=== PATIENT | male | born 1955 | race Caucasian/White ===

== ENCOUNTER 2019-02-25 | Day surgery (SDC) | payer MEDICARE, MEDICAID, SELFPAY | END 2019-02-25 23:00 | disposition home or self-care (01) | LOC: GILAB 10-04 13:38 | PROVIDERS: PCP Family Medicine; Visit Provider Surgery | PROC: 0DJ08ZZ Inspection of Upper Intestinal Tract, Via Natural or Artificial Opening Endoscopic (ICD-10-PCS; CPT 43235; principal; 2019-02-25 10:15) | DX: Z53.9 Procedure and treatment not carried out, unspecified reason (principal) | CPT/HCPCS: J7030 ==

== ENCOUNTER → 2019-03-17 10:11 | Outpatient (BNVA) | payer MEDICARE, SELFPAY | PROVIDERS: Family Provider Family Medicine; PCP Family Medicine; Visit Provider Nurse Practitioner | DX: M54.16 Radiculopathy, lumbar region (principal); M47.812 Spondylosis without myelopathy or radiculopathy, cervical region; M25.532 Pain in left wrist; M19.90 Unspecified osteoarthritis, unspecified site; Z79.891 Long term (current) use of opiate analgesic | CPT/HCPCS: 99214 ==

== ENCOUNTER → 2019-04-14 09:16 | Outpatient (BNVA) | payer MEDICARE, MEDICAID, SELFPAY | PROVIDERS: Family Provider Family Medicine; PCP Family Medicine; Visit Provider Nurse Practitioner | DX: M54.16 Radiculopathy, lumbar region (principal); Z79.891 Long term (current) use of opiate analgesic | CPT/HCPCS: 99214 ==

== ENCOUNTER → 2019-05-04 14:35 | Outpatient (BNVA) | payer MEDICARE, MEDICAID, SELFPAY | PROVIDERS: Family Provider Family Medicine; PCP Family Medicine; Visit Provider Family Medicine | DX: J44.9 Chronic obstructive pulmonary disease, unspecified (principal); E87.5 Hyperkalemia; I10 Essential (primary) hypertension; R53.83 Other fatigue; J30.9 Allergic rhinitis, unspecified; R06.02 Shortness of breath | CPT/HCPCS: 80048; 83880; 85025 ==

== ENCOUNTER 2019-06-02 11:21 | Outpatient (CLI) | payer MEDICARE, MEDICAID, SELFPAY ==
--- NOTE | 2019-06-02 11:00 | USCV_ITS ---
Herrera Quintana Age: 63 Gender: M : 1955 Exam Date: 06/02/2019 12:01 Ordering Phys: Debbie Cardoso MD Technologist: Tiffanie Leyva Exam Location: [facility] Indication: CHF SOB BP: 130 / 81 HR: 96 Rhythm: Sinus Technical Quality: Adequate MEASUREMENTS (Male / Female) Normal Values 2D ECHO LV Diastolic Diameter PLAX 5.4 cm 4.2 - 5.9 / 3.9 - 5.3 cm LV Systolic Diameter PLAX 3.7 cm LV Chamber Size 4.8 cm IVS Diastolic Thickness 1.2 cm 0.6 - 1.0 / 0.6 - 0.9 cm IVS Systolic Thickness 1.7 cm LVPW Diastolic Thickness 1.5 cm 0.6 - 1.0 / 0.6 - 0.9 cm LVPW Systolic Thickness 1.7 cm RV Chamber Size 2.4 cm LVOT Diameter 2.1 cm LV Ejection Fraction 2D Teich 59.7 % LV Ejection Fraction MOD 2C 46.4 % LV Ejection Fraction 2C AL 46.4 % LA Diameter 3.9 cm LA Width 3.4 cm LA Height 4.4 cm RA Width 3.0 cm RA Height 4.6 cm Aorta at Sinotubular Diameter 3.4 cm M-MODE LV Diastolic Diameter MM 4.7 cm 4.2 - 5.9 / 3.9 - 5.3 cm LV Systolic Diameter MM 4.2 cm LV Ejection Fraction MM Teich 25.3 % IVS Diastolic Thickness MM 1.1 cm 0.6 - 1.0 / 0.6 - 0.9 cm IVS Systolic Thickness MM 1.3 cm LVPW Diastolic Thickness MM 1.2 cm 0.6 - 1.0 / 0.6 - 0.9 cm LVPW Systolic Thickness MM 2.1 cm RV Diastolic Diameter MM 1.1 cm Aortic Annulus Diameter 3.0 cm LA Ao Ratio MM 1.1 MV E Point Septal Separation 1.4 cm DOPPLER AV Peak Velocity 132.0 cm/s LVOT Peak Velocity 72.0 cm/s AV Area Cont Eq vti 2.2 cm squared AV Area Cont Eq pk 1.8 cm squared MV Area PHT 5.1 cm squared Mitral E to A Ratio 1.6 MV E' Velocity 8.0 cm/s Mitral E to MV E' Ratio 8.9 Mitral E to LV E' Lateral Ratio 11.1 Mitral E to LV E' Septal Ratio 7.4 TR Peak Velocity 152.2 cm/s TR Peak Gradient 9.3 mmHg TR Mean Velocity 122.7 cm/s TR Mean Gradient 6.4 mmHg TR Velocity Time Integral 37.8 cm TV Peak E Velocity 57.0 cm/s Right Atrial Pressure 3.0 mmHg Pulmonary Artery Systolic Pressu 12.3 mmHg PV Peak Velocity 73.0 cm/s RV Acceleration Time 0.2 s RV Ejection Time 0.3 s RV AcT/ET 0.5 FINDINGS Left Ventricle Normal left ventricular cavity size. Increased left ventricular wall thickness. Mildly to moderately decreased left ventricular systolic function. Left ventricular ejection fraction is estimated at 40 %. Global left ventricular hypokinesis. Right Ventricle Normal right ventricular size and systolic function. Right ventricular systolic pressure 12.3 mmHg. Right Atrium Normal right atrial size. Left Atrium Normal left atrial size. Mitral Valve Mildly thickened mitral valve. No mitral valve stenosis. Trace mitral valve regurgitation. Aortic Valve Structurally normal trileaflet aortic valve. No aortic valve stenosis. Trace aortic valve regurgitation. Tricuspid Valve Structurally normal tricuspid valve. Trace tricuspid valve regurgitation. Pulmonic Valve Pulmonic valve not well visualized. Trace pulmonary valve regurgitation. Pericardium No pericardial effusion. Prominent epicardial fat. Aorta Normal size aortic root and proximal ascending aorta. CONCLUSIONS 1. Normal left ventricular cavity size. Mildly to moderately decreased left ventricular systolic function. Left ventricular ejection fraction is estimated at 40 %. Global left ventricular hypokinesis. 2. Normal right ventricular size and systolic function. 3. Trace aortic valve regurgitation. 4. Normal pulmonary artery pressure. 5. No prior similar studies to compare. Breanne Jha MD (Electronically Signed) Final Date: 02 June 2019 15:22 S
== END 2019-06-02 11:22 | disposition home or self-care (01) ==
LOC: RAD 11:27
PROVIDERS: Family Provider Family Medicine; PCP Family Medicine; Visit Provider Family Medicine
DX: I10 Essential (primary) hypertension (principal); R06.02 Shortness of breath; M05.79 Rheumatoid arthritis with rheumatoid factor of multiple sites without organ or systems involvement; Z79.899 Other long term (current) drug therapy; Z11.59 Encounter for screening for other viral diseases; Z72.89 Other problems related to lifestyle
CPT/HCPCS: 36415; 80076; 82565; 85025; 85651; 86140; 86704; 86803; 87340; 93306

== ENCOUNTER 2019-07-15 07:56 | Day surgery (SDC) | payer MEDICARE, MEDICAID, SELFPAY ==
[2019-07-13 13:54] VITALS: BMI 27.4
[2019-07-15 08:10] VITALS: BP 143/89; PULSE 80; RESP 16; TEMP 36.7; O2SAT 98
--- NOTE | 2019-07-15 08:43 | P.ANESASSM_ITS ---
Pre-Anesthetic Assessment Pre-Anesthetic Assessment: Height/Weight: Height 1.75 m Weight 84.368 kg Temp Pulse Resp BP Pulse Ox 98.0 F 80 16 143/89 98 07/15/19 08:10 07/15/19 08:10 07/15/19 08:10 07/15/19 08:10 07/15/19 08:10 Preop Diagnosis: GERD, screening Proposed Procedure: Operation Date: 07/15/19 09:30 Proposed Procedures s EGD 89379 K21.9 GERd(Not Applicable) - Fadi Brown MD p Colonoscopy 77331 Z80.0 family history of colon cancer(Not Applicable) - Fadi Brown MD Last intake: Intake Last Liquid Date 07/15/19 Last Liquid Time 04:00 Last Solid Date 07/13/19 Last Solid Time 20:00 Social: Social History: Tobacco (quit) and No alcohol Exam: Pre-Anes Outpt Exam: alert, oriented x 3, clear to auscultation bilaterally and regular rate & rhythm Airway: Submandibular: WNL Cervical ROM: WNL MP: 2 Dentition: False (upper and lower) History/ROS: No significant history except as noted Pulmonary: Pulmonary: COPD and [place] CV/HEM: CV/HEM: CHF and HTN : : None reported Hepatic: Hepatic: None reported GI: GI: GERD (occ) Metabolic: Metabolic: None reported Musc/skel: Musc/skel: RA Neuropsych: Neuropsych: None reported Anesthetic Plan: ASA status: 3 Anesthesia: Anesthesia Evaluation and MAC Risk of > 500 ml blood loss (7ml/kg in children): No PFSH Anesthesia PFSH: Medical History BPH (benign prostatic hyperplasia) Cervical arthritis CHF (congestive heart failure) Chronic radicular low back pain COPD (chronic obstructive pulmonary disease) DDD (degenerative disc disease) Erectile dysfunction Fatigue GERD (gastroesophageal reflux disease) H/O chronic active hepatitis High risk medication use Immunization counseling senior care (current) use of opiate analgesic Osteoarthritis Pain management contract agreement Rheumatoid arthritis Seropositive rheumatoid arthritis Surgical History H/O arthroscopic knee surgery left -2018 H/O hemorrhoidectomy H/O repair of rotator cuff Bilateral rt. 2010 left 2016 H/O submucous nasal surgery History of ear surgery History of facial surgery History of laminectomy Lumbar Status post colonoscopy 2018, repeat in 10 years Family History Father Hypertension Heart disease Diabetes Cancer colon cancer Mother Hypertension Stroke Sister Hypertension Liver disease Brother Hypertension Family/Other Heart disease [place] [employer] [place] Cancer PROSTATE-UNCLE Other Arthritis Denies family history of Anesthesia complication Bleeding disorder Social History Smoking and tobacco status: former smoker Quit status (tobacco): has quit using tobacco Year quit tobacco: 02/2019 Second hand smoke exposure: No Alcohol intake: former Year of sobriety/quit date alcohol: 2017 Desire information about alcohol rehabilitation?: No Desire information about substance/drug rehabilitation?: No History of recent travel: No Sexually active: Yes Current gender identity: Male Data Anesthesia Cardiac Studies: No Data to Display
[2019-07-15] MEDS: sodium chloride 0.9% 1,000 ML 30 ML IV (08:47)
--- NOTE | 2019-07-15 09:24 | W.PM.OPSUD ---
Surgery/Procedure H&P Update DATE OF PROCEDURE: July 15, 2019 DATE H&P PERFORMED: 07/09/19 H&P UPDATE INFORMATION: I have reviewed H&P completed within last 30 days, I have examined patient prior to procedure and No changes to prior documentation PREOP DIAGNOSIS: GERD, screening PLANNED PROCEDURE: Operation Date: 07/15/19 09:30 Proposed Procedures s EGD 63565 K21.9 GERd(Not Applicable) - Fadi Brown MD p Colonoscopy 52230 Z80.0 family history of colon cancer(Not Applicable) - Fadi Brown MD
[2019-07-15 09:57] VITALS: BP 108/73; PULSE 66; RESP 16; TEMP 36.8; O2SAT 93
[2019-07-15 10:16] VITALS: BP 117/77; PULSE 61; RESP 16; TEMP 36.4; O2SAT 97
[2019-07-15 10:45] VITALS: BP 123/91; PULSE 67; RESP 18; TEMP 36.7; O2SAT 99
== END 2019-07-15 11:22 | disposition home or self-care (01) ==
PROVIDERS: PCP Family Medicine; Visit Provider Surgery
PROC: 0DJ08ZZ Inspection of Upper Intestinal Tract, Via Natural or Artificial Opening Endoscopic (ICD-10-PCS; CPT 43235; principal; 2019-07-15 09:30)
PROC: 0DJD8ZZ Inspection of Lower Intestinal Tract, Via Natural or Artificial Opening Endoscopic (ICD-10-PCS; CPT 45378; 2019-07-15 09:30)
DX: Z12.11 Encounter for screening for malignant neoplasm of colon (principal); K21.9 Gastro-esophageal reflux disease without esophagitis; K57.30 Diverticulosis of large intestine without perforation or abscess without bleeding; K29.70 Gastritis, unspecified, without bleeding; J44.9 Chronic obstructive pulmonary disease, unspecified; I10 Essential (primary) hypertension; I50.9 Heart failure, unspecified; M06.9 Rheumatoid arthritis, unspecified; N40.0 Benign prostatic hyperplasia without lower urinary tract symptoms; M19.90 Unspecified osteoarthritis, unspecified site; Z82.49 Family history of ischemic heart disease and other diseases of the circulatory system; Z83.3 Family history of diabetes mellitus; Z87.891 Personal history of nicotine dependence
CPT/HCPCS: 12345; 43239; 45378; 88305; J2704; J7030

== ENCOUNTER → 2019-07-28 13:01 | Outpatient (BNVA) | payer MEDICARE, MEDICAID, SELFPAY | PROVIDERS: PCP Family Medicine; Visit Provider Anesthesiology | DX: G89.29 Other chronic pain (principal); M54.16 Radiculopathy, lumbar region; M54.9 Dorsalgia, unspecified; M47.812 Spondylosis without myelopathy or radiculopathy, cervical region; Z79.891 Long term (current) use of opiate analgesic; Z87.891 Personal history of nicotine dependence | CPT/HCPCS: 99214 ==

== ENCOUNTER → 2019-07-30 09:24 | Outpatient (BNVA) | payer MEDICARE, MEDICAID, SELFPAY | PROVIDERS: PCP Family Medicine | DX: R25.2 Cramp and spasm (principal); R76.8 Other specified abnormal immunological findings in serum; Z79.899 Other long term (current) drug therapy; Z11.59 Encounter for screening for other viral diseases | CPT/HCPCS: 36415; 80048; 83735; 86803; 87522 ==

== ENCOUNTER → 2019-08-25 13:40 | Outpatient (BNVA) | payer MEDICARE, MEDICAID, SELFPAY | PROVIDERS: PCP Family Medicine; Visit Provider Anesthesiology | DX: G89.29 Other chronic pain (principal); M54.42 Lumbago with sciatica, left side; M54.41 Lumbago with sciatica, right side; M54.16 Radiculopathy, lumbar region; M54.9 Dorsalgia, unspecified; M47.812 Spondylosis without myelopathy or radiculopathy, cervical region; M19.90 Unspecified osteoarthritis, unspecified site; Z79.891 Long term (current) use of opiate analgesic | CPT/HCPCS: 99214 ==

== ENCOUNTER 2019-09-07 08:18 | Outpatient (CLI) | payer MEDICARE, MEDICAID, SELFPAY ==
--- NOTE | 2019-09-07 09:04 | ECG_ITS ---
[facility] Test Date: 2019-09-07 Pat Name: Herrera Quintana Department: Room: Gender: Male Personnel Supervisor: Neva Youssef : 1955 Requested By: Breanne Jha Order Number: [id number] Kelly MD: Breanne Jha M.D. Interpretive Statements NAME OF STUDY: LEXISCAN SESTAMIBI STRESS TEST INDICATION: Chest Pain PROCEDURE: At the baseline, the blood pressure was 121/83 mmHg with a heart rate of 76 bpm. The electrocardiogram showed normal sinus rhythm, normal axis with normal ST and T's. The Lexiscan was infused over a period of 20 seconds. A total of 0.4 milligrams of Lexiscan was infused. The stress phase was continued for a total of 5 minutes. Heart rate at the end of the stress phase was 81 bpm with a blood pressure 121/82 mmHg. The EKG at the peak infusion revealed sinus rhythm with no significant ST-T wave changes. PACs and PVCs noted during infusion. Study was terminated due to completion of protocol. Sestamibi was injected 20 seconds after the Lexiscan infusion. Blood pressure at the end of the recovery phase was 126/81 mmHg with a heart rate of 86 beats per minute. CONCLUSION: 1. Normal EKG response to LexiScan infusion. 2. No LexiScan induced chest pain or cardiac arrhythmia. 3. Normal blood pressure and heart rate response. 4. Sestamibi/sestamibi perfusion scan pending; see separate report. Electronically Signed On 09-07-2019 13:43:56 CDT by Breanne Jha M.D. [id number]
--- NOTE | 2019-09-07 09:04 | NMCV_ITS ---
NM shanon perf SPECT r/s* [id number] Herrera Quintana Age: 63 Gender: M : 1955 Exam Date: 09/07/2019 09:04 Ordering Phys: Breanne Jha MD ([email or web address]) Technologist: HYUN Dejesus Exam Location: [facility] Indications: CHF STRESS TEST Please see separate stress test report in [facility] for full findings IMAGE PROTOCOL Rest/Stress 1 Lexiscan Day Radiopharmaceutical Dose (mCi) Administration Site Administered by Rest: Tc-99m 10.5 IV HYUN Dejesus Sestamibi Stress:Tc-99m 32.5 IV HYUN Munoz Sestamibi Rest: 07-Sep-2019 60 Discovery 630 Stress: 07-Sep-2019 30 Discovery 630 0.4mg Lexiscan. Images obtained in supine and prone position. SPECT RESULTS Technical Quality: Excellent Raw Data Analysis: Normal Image Corrections: No attenuation or motion correction applied Summed Stress Score: 1 Summed Rest Score: 3 Summed Difference Score: 1 PERFUSION FINDINGS Small sized perfusion abnormality of mild severity of mid to apical inferior, apical lateral amato on rest images with subtle reversibility in mid inferior wall on supine stress images with improved tracer uptake in mid inferior wall on prone stress images. This is likely suggestive of attenuation artifact. FUNCTIONAL RESULTS (calculated via Gated SPECT) Stress Image LV EF (%): 39 Stress EDV (mL):219 TID: 1 Stress ESV (mL):134 FUNCTIONAL FINDINGS: The left ventricle is normal in size. Transient Ischemia Dilatation of 1. There is moderately reduced left ventricular global systolic function. The left ventricular ejection fraction is moderately reduced with a value of 39%. There is moderately decreased global wall thickening. Increased end-diastolic and end-systolic volumes IMPRESSIONS 1. Small sized predominantly fixed perfusion abnormality of mild severity of mid to apical inferior and apical lateral amato on rest and stress images. 2.This may represent old myocardial infarction in right coronary artery territory or attenuation artifact. 3. The left ventricular ejection fraction is moderately reduced with a value of 39%. 4. There is moderately decreased global wall thickening. 5. No coronary ischemia based on the study. 6. The perfusion pattern is consistent with a non-ischemic cardiomyopathy. Breanne Jha MD (Electronically Signed) Final Date: 09 September 2019 17:00 S
[2019-09-07 09:05] VITALS: BMI 27.1
[2019-09-07] MEDS: regadenoson 0.4 Mg/5 ml Syringe IVP (10:19)
[2019-09-07 10:24] VITALS: BP 113/76; PULSE 96
== END 2019-09-07 08:19 | disposition home or self-care (01) ==
LOC: RAD 08:23
PROVIDERS: PCP Family Medicine; Visit Provider Internal Medicine Cardiovascular Disease
DX: I11.0 Hypertensive heart disease with heart failure (principal); I50.22 Chronic systolic (congestive) heart failure; R07.9 Chest pain, unspecified; Z87.891 Personal history of nicotine dependence
CPT/HCPCS: 78452; 93017; A9500; J2785

== ENCOUNTER → 2019-09-27 08:54 | Outpatient (BNVA) | payer MEDICARE, MEDICAID, SELFPAY | PROVIDERS: PCP Family Medicine; Visit Provider Internal Medicine Rheumatology | DX: M05.79 Rheumatoid arthritis with rheumatoid factor of multiple sites without organ or systems involvement (principal); Z79.899 Other long term (current) drug therapy; Z86.19 Personal history of other infectious and parasitic diseases; I50.22 Chronic systolic (congestive) heart failure; M15.9 Polyosteoarthritis, unspecified; K21.9 Gastro-esophageal reflux disease without esophagitis; M47.812 Spondylosis without myelopathy or radiculopathy, cervical region; M47.816 Spondylosis without myelopathy or radiculopathy, lumbar region; Z79.52 Long term (current) use of systemic steroids | CPT/HCPCS: 36415; 80076; 82565; 85025; 85651; 86140; 99214 ==

== ENCOUNTER → 2019-10-14 11:29 | Outpatient (BNVA) | payer MEDICARE, MEDICAID, SELFPAY | PROVIDERS: PCP Family Medicine; Visit Provider Family Medicine | DX: R07.81 Pleurodynia (principal) | CPT/HCPCS: 71046 ==

== ENCOUNTER → 2019-10-26 13:18 | Outpatient (BNVA) | payer MEDICARE, MEDICAID, SELFPAY | PROVIDERS: PCP Family Medicine; Visit Provider Nurse Practitioner | DX: G89.29 Other chronic pain (principal); M54.16 Radiculopathy, lumbar region; M05.79 Rheumatoid arthritis with rheumatoid factor of multiple sites without organ or systems involvement; Z79.891 Long term (current) use of opiate analgesic; Z87.891 Personal history of nicotine dependence; Z71.6 Tobacco abuse counseling | CPT/HCPCS: 99215 ==

== ENCOUNTER → 2019-11-24 13:18 | Outpatient (BNVA) | payer MEDICARE, MEDICAID, SELFPAY | PROVIDERS: Family Provider Family Medicine; PCP Family Medicine; Visit Provider Anesthesiology | DX: G89.29 Other chronic pain (principal); M54.16 Radiculopathy, lumbar region; M54.9 Dorsalgia, unspecified; M47.812 Spondylosis without myelopathy or radiculopathy, cervical region; Z79.891 Long term (current) use of opiate analgesic | CPT/HCPCS: 99213; 99214 ==

== ENCOUNTER → 2019-12-22 16:10 | Outpatient (BNVA) | payer MEDICARE, MEDICAID, SELFPAY | PROVIDERS: Family Provider Family Medicine; PCP Family Medicine; Visit Provider Urology | DX: N40.1 Benign prostatic hyperplasia with lower urinary tract symptoms (principal) | CPT/HCPCS: 81003 ==

== ENCOUNTER → 2019-12-28 12:45 | Outpatient (BNVA) | payer MEDICARE, MEDICAID, SELFPAY | PROVIDERS: Family Provider Family Medicine; PCP Family Medicine; Visit Provider Internal Medicine Rheumatology | DX: Z79.52 Long term (current) use of systemic steroids; M47.812 Spondylosis without myelopathy or radiculopathy, cervical region; M47.816 Spondylosis without myelopathy or radiculopathy, lumbar region; M05.79 Rheumatoid arthritis with rheumatoid factor of multiple sites without organ or systems involvement; Z79.899 Other long term (current) drug therapy; Z86.19 Personal history of other infectious and parasitic diseases | CPT/HCPCS: 99214 ==

== ENCOUNTER → 2019-12-29 13:46 | Outpatient (BNVA) | payer MEDICARE, MEDICAID, SELFPAY | PROVIDERS: Family Provider Family Medicine; PCP Family Medicine; Visit Provider Internal Medicine Rheumatology | DX: Z79.899 Other long term (current) drug therapy (principal); M05.79 Rheumatoid arthritis with rheumatoid factor of multiple sites without organ or systems involvement; Z86.19 Personal history of other infectious and parasitic diseases; Z71.89 Other specified counseling; I50.22 Chronic systolic (congestive) heart failure; M15.9 Polyosteoarthritis, unspecified | CPT/HCPCS: 80076; 82565; 85025; 85651; 86140; 86431 ==

== ENCOUNTER → 2020-01-28 13:21 | Outpatient (BNVA) | payer MEDICARE, MEDICAID, SELFPAY | PROVIDERS: Family Provider Family Medicine; PCP Family Medicine; Visit Provider Anesthesiology | DX: G89.29 Other chronic pain (principal); M54.42 Lumbago with sciatica, left side; M54.41 Lumbago with sciatica, right side; M54.16 Radiculopathy, lumbar region; M47.812 Spondylosis without myelopathy or radiculopathy, cervical region; M54.9 Dorsalgia, unspecified; Z79.891 Long term (current) use of opiate analgesic; Z79.899 Other long term (current) drug therapy | CPT/HCPCS: 99213; 99214 ==

== ENCOUNTER → 2020-03-30 12:09 | Outpatient (BNVA) | payer MEDICARE, MEDICAID, SELFPAY | PROVIDERS: Family Provider Family Medicine; PCP Family Medicine; Visit Provider Anesthesiology | DX: G89.29 Other chronic pain (principal); M54.16 Radiculopathy, lumbar region; M47.812 Spondylosis without myelopathy or radiculopathy, cervical region; M54.9 Dorsalgia, unspecified; Z79.891 Long term (current) use of opiate analgesic | CPT/HCPCS: 99214 ==

== ENCOUNTER → 2020-05-08 12:46 | Outpatient (BNVA) | payer MEDICARE, MEDICAID, SELFPAY | PROVIDERS: Family Provider Family Medicine; PCP Family Medicine; Visit Provider Internal Medicine Rheumatology | DX: M05.79 Rheumatoid arthritis with rheumatoid factor of multiple sites without organ or systems involvement (principal); Z79.899 Other long term (current) drug therapy; I50.22 Chronic systolic (congestive) heart failure; M47.892 Other spondylosis, cervical region; M47.896 Other spondylosis, lumbar region; Z86.19 Personal history of other infectious and parasitic diseases; Z87.891 Personal history of nicotine dependence; I10 Essential (primary) hypertension | CPT/HCPCS: 36415; 80048; 80076; 85025; 86140; 99214 ==

== ENCOUNTER 2020-05-08 13:38 | Outpatient (CLI) | payer MEDICARE, MEDICAID, SELFPAY ==
[2020-05-08 14:27] LABS: Basophils # 0.1 10^3/uL (0.0-0.1); Basophils % 0.5 %; Eosinophils # 0.1 10^3/uL (0.0-0.8); Eosinophils % 0.9 %; Hematocrit 43.2 % (42.0-52.0); Hemoglobin 14.7 g/dL (11.7-16.6); Lymphocytes % 27.8 %; Mean Corpuscular Hemoglobin 31.6 pg (28.0-34.0); Mean Corpuscular Volume 92.9 fL (80-94); Mean Platelet Volume 10.4 fL (7.4-10.4); Monocytes # 1.3 10^3/uL (0.2-0.9); Monocytes % 11.5 %; Neutrophils # 6.38 10^3/uL (1.8-7.7); Neutrophils % 58.8 %; Nucleated Red Blood Cells % 0 %; Platelet Count 270 10^3/cmm (130-400); Red Blood Count 4.65 10^6/uL (4.1-5.3); Red Cell Distribution Width 13.6 % (12.1-15.1); White Blood Count 10.9 10^3/uL (4.0-10.0)
[2020-05-08 14:43] LABS: Alanine Aminotransferase 18 U/L (0-41); Albumin Level 4.7 g/dL (3.5-5.2); Alkaline Phosphatase 53 IU/L (40-130); Anion Gap 14.9 (5-19); Aspartate Amino Transferase 15 U/L (0-40); Blood Urea Nitrogen 26 mg/dL (8-23); C Reactive Protein 2.9 mg/L (0.0-4.9); Calcium 10.3 mg/dL (8.5-10.5); Carbon Dioxide 28 mmol/L (22-29); Chloride 100 mmol/L (98-107); Glomerular Filtration Rate 75.7 mL/min (90-130); Glucose 100 mg/dL (65-115); Osmolality Calculated 293 mOsm/kg (285-295); Potassium 3.9 mmol/L (3.5-5.1); Sodium 139 mmol/L (136-145); Total Bilirubin 0.3 mg/dL (0.15-1.2); Total Protein 7.7 g/dL (6.6-8.7)
== END 2020-05-08 13:39 | disposition home or self-care (01) ==
PROVIDERS: PCP Family Medicine; Referring Provider Family Medicine; Visit Provider Internal Medicine Rheumatology
DX: M05.79 Rheumatoid arthritis with rheumatoid factor of multiple sites without organ or systems involvement (principal); Z79.899 Other long term (current) drug therapy; I10 Essential (primary) hypertension
CPT/HCPCS: 36415; 80048; 80076; 85025; 86140

== ENCOUNTER → 2020-05-17 14:21 | Outpatient (BNVA) | payer MEDICARE, MEDICAID, SELFPAY | PROVIDERS: PCP Family Medicine; Visit Provider Emergency Medicine | DX: S69.90XA Unspecified injury of unspecified wrist, hand and finger(s), initial encounter (principal); X58.XXXA Exposure to other specified factors, initial encounter | CPT/HCPCS: 73140 ==

== ENCOUNTER → 2020-05-25 14:06 | Outpatient (BNVA) | payer MEDICARE, MEDICAID, SELFPAY | PROVIDERS: PCP Family Medicine; Visit Provider Anesthesiology | DX: G89.29 Other chronic pain (principal); M54.16 Radiculopathy, lumbar region; M54.9 Dorsalgia, unspecified; M47.812 Spondylosis without myelopathy or radiculopathy, cervical region; Z79.891 Long term (current) use of opiate analgesic; Z79.899 Other long term (current) drug therapy | CPT/HCPCS: 99214 ==

== ENCOUNTER 2020-05-28 17:08 | Emergency (ER) | payer MEDICARE, MEDICAID, SELFPAY ==
[2020-05-28 17:15] VITALS: BP 160/100; PULSE 92; RESP 16; TEMP 36.8; O2SAT 96; BMI 26.4
[2020-05-28 17:30] VITALS: BP 150/100; PULSE 92; RESP 17; O2SAT 94
--- NOTE | 2020-05-28 18:15 | ECG_ITS ---
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 Measurements Intervals [place] Rate: 96 P: 66 LA: 153 QRS: 44 QRSD: 105 T: 52 QT: 344 QTc: 435 Interpretive Statements SINUS RHYTHM WITH OCCASIONAL VENTRICULAR PREMATURE COMPLEXES WITH OCCASIONAL SUPRAVENTRICULAR PREMATURE COMPLEXES MINIMAL VOLTAGE CRITERIA FOR LVH, CONSIDER NORMAL VARIANT [MEETS CRITERIA IN ONE OF: R(aVL), S(V1), R(V5), R(V5/V6)+S(V1)] NONSPECIFIC T-WAVE ABNORMALITY Compared to ECG 04/07/2016 15:59:26 Ventricular premature complex(es) now present Sinus tachycardia no longer present T-wave abnormality still present Electronically Signed On 05-29-2020 20:13:28 CDT by Paco Marcano M.D. [id number] f
--- NOTE | 2020-05-28 18:15 | XRR_ITS ---
PROCEDURE INFORMATION: Exam: XR Chest Exam date and time: 05/28/2020 6:16 PM Age: 64 years old Clinical indication: Other: Syncope; Additional info: Pre-syncope TECHNIQUE: Imaging protocol: XR of the chest. Views: 1 view. COMPARISON: CR XR chest 2V* [id number] 10/14/2019 11:40 AM FINDINGS: Lungs: Unremarkable. No consolidation. Pleural spaces: Unremarkable. No pleural effusion. No pneumothorax. Heart/Mediastinum: Unremarkable. No cardiomegaly. Vasculature: Mild atherosclerosis of aortic arch. Bones/joints: Surgical anchors within bilateral humeral heads. No acute thoracic fractures. XR/XR chest 1V portable [id number] IMPRESSION: 1. No acute chest findings. 2. No change from prior.
[2020-05-28 18:38] LABS: Basophils % 0.3 %; Eosinophils % 0.3 %; Hematocrit 40.1 % (42.0-52.0); Hemoglobin 13.5 g/dL (11.7-16.6); Lymphocytes # 1.5 10^3/uL (0.8-4.8); Lymphocytes % 13.1 %; Mean Corpuscular HGB Conc 33.7 g/dL (30.0-36.0); Mean Corpuscular Hemoglobin 31.3 pg (28.0-34.0); Mean Corpuscular Volume 92.8 fL (80-94); Mean Platelet Volume 10.7 fL (7.4-10.4); Monocytes # 1.4 10^3/uL (0.2-0.9); Monocytes % 12.3 %; Neutrophils # 8.51 10^3/uL (1.8-7.7); Neutrophils % 73.4 %; Nucleated Red Blood Cells % 0 %; Platelet Count 254 10^3/cmm (130-400); Red Blood Count 4.32 10^6/uL (4.1-5.3); Red Cell Distribution Width 13.3 % (12.1-15.1); White Blood Count 11.6 10^3/uL (4.0-10.0)
[2020-05-28 18:42] LABS: INR 0.97 (0.8-1.2)
[2020-05-28 18:45] LABS: D Dimer 0.38 ug/mIFEU (0-0.59)
[2020-05-28 18:51] VITALS: BP 127/82; PULSE 87; RESP 18; O2SAT 96
[2020-05-28 18:53] LABS: Troponin(5th) Baseline 12 ng/L (0-15)
[2020-05-28 19:00] VITALS: PULSE 96
[2020-05-28 19:02] LABS: Alanine Aminotransferase 20 U/L (0-41); Albumin Level 4.5 g/dL (3.5-5.2); Alkaline Phosphatase 64 IU/L (40-130); Aspartate Amino Transferase 17 U/L (0-40); Blood Urea Nitrogen 24 mg/dL (8-23); Calcium 9.2 mg/dL (8.5-10.5); Carbon Dioxide 26 mmol/L (22-29); Chloride 101 mmol/L (98-107); Globulin 2.2 g/dL (1.3-4.6); Glomerular Filtration Rate 67.8 mL/min (90-130); Glucose 83 mg/dL (65-115); Lipase 32 U/L (13-60); NT Pro B Type Natriuretic Pept 97 pg/mL (0-125); Osmolality Calculated 295 mOsm/kg (285-295); Sodium 141 mmol/L (136-145); Total Bilirubin 0.2 mg/dL (0.15-1.2); Total Protein 6.7 g/dL (6.6-8.7)
[2020-05-28 19:05] LABS: Anion Gap 18.4 (5-19)
[2020-05-28 19:06] LABS: Potassium 4.4 mmol/L (3.5-5.1)
[2020-05-28 19:08] LABS: Add Urine Microscopic? YES; Bilirubin Urine Neg (Negative); Blood Urine 2+ (Negative); Glucose Urine UA Norm (Normal); Ketones Urine Negative (Negative); Leukocyte Esterase Urine Negative (Negative); Nitrate Urine Negative (Negative); Protein Urine Neg (Negative); Urine Appearance Clear (CLEAR); Urine Color Yellow (Yellow); Urobilinogen Urine Norm (Negative); pH Urine 6.5 (5-7)
[2020-05-28 19:14] LABS: Add Urine Culture? Yes; Bacteria Urine TRACE /hpf; Squamous Epithelial Cell Urine 0-4 /hpf (0-5); WBC Urine 0-4 /hpf (0-5)
[2020-05-28 19:20] LABS: Troponin 5 2HR 12.69 ng/L (0-15); Troponin 5 2HR Delta 0.69 ABS# (0-10)
[2020-05-28 19:41] LABS: Creatine Phosphokinase 167 U/L (39-308)
[2020-05-28] MEDS: sodium chloride 0.9% 1,000 ML 999 ML IV (19:48)
--- NOTE | 2020-05-28 20:17 | ED_ITS ---
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 He has a history of congestive heart failure that was diagnosed last year. He states that the symptoms persisted and progressively worsened and so he had to go home to rest. When he got to his house he had a presyncopal event and felt he was going to pass out but got to a chair and lay down. He was weak all over. When his symptoms did not improve he decided to come to the emergency department to be evaluated. He denies any chest pain, shortness of breath, fever. His symptoms have improved now. complaint: almost passed out Prodromal symptoms: lightheaded Witnessed: Yes - by Bystander Context: during exertion Injuries sustained associated with event: none Associated symptoms: Reports weakness; Deny abdominal pain, chest pain, fever(s), headache(s), lightheadedness, nausea, short of breath or vertigo Treatments prior to arrival: none Review of Systems General: Reports: 10 or more systems reviewed and unremarkable except in HPI and below Const: Denies: fever(s) Card: Denies: chest pain or lightheadedness GI: Denies: abdominal pain or nausea Neuro: Denies: headache(s) or vertigo PFS ED PFSH: Medical History BPH (benign prostatic hyperplasia) BPH loc w urin obs/LUTS Cervical arthritis CHF (congestive heart failure) Chronic radicular low back pain COPD (chronic obstructive pulmonary disease) DDD (degenerative disc disease) Encounter for long-term opiate analgesic use Erectile dysfunction Fatigue GERD (gastroesophageal reflux disease) H/O chronic active hepatitis Insomnia Rheumatoid arthritis Seropositive rheumatoid arthritis of multiple sites Trigger finger of left hand Surgical History H/O arthroscopic knee surgery left -2018 H/O hemorrhoidectomy H/O repair of rotator cuff Bilateral rt. 2009 left 2016 H/O submucous nasal surgery History of ear surgery History of facial surgery History of laminectomy Lumbar Status post colonoscopy (07/15/19) Repeat in 10 years Family History Father Hypertension Heart disease Diabetes Cancer colon cancer Mother Hypertension Stroke Sister Hypertension Liver disease Brother Hypertension Family/Other Heart disease [place] Cancer PROSTATE-UNCLE Other Arthritis Denies family history of Anesthesia complication Bleeding disorder Social History Smoking and tobacco status: former smoker Quit status (tobacco): has quit using tobacco Year quit tobacco: 02/2019 Second hand smoke exposure: No Alcohol intake: former Year of sobriety/quit date alcohol: 2017 Desire information about alcohol rehabilitation?: No Desire information about substance/drug rehabilitation?: No History of recent travel: No Sexually active: Yes Current gender identity: Male Physical Exam Const: COMMON NORMALS: no acute distress, average body habitus, patient oriented x3, no limitations, healthy appearing, alert and well nourished HENMT: COMMON NORMALS: normocephalic, atraumatic and moist oral mucous membranes HEAD & SCALP: normocephalic and atraumatic Neck/C-Spine: COMMON NORMALS: no meningeal signs and no JVD Resp: COMMON NORMALS: normal respiratory effort, No retractions, No use of accessory muscles, clear to auscultation bilaterally and percussion normal AUSCULTATION: clear to auscultation bilaterally PERCUSSION: percussion normal Cardio: COMMON NORMALS: no JVD, regular rate, regular rhythm, S1 normal heart sound present, S2 normal heart sound present, No gallops present (Cardio), No clicks present (Cardio), No murmurs present (Cardio), No rub (Cardio) and Pe ripheral pulses 2+ throughout RATE: regular rate RHYTHM: regular rhythm HEART SOUNDS: S1 normal heart sound present and S2 normal heart sound present PERIPHERAL PULSES: Peripheral pulses 2+ throughout GI: COMMON NORMALS: Normal to inspection, nondistended, normoactive bowel sounds present, Soft to palpation, non-tender, No hepatosplenomegaly present, no masses and no bruits PALPATION: Yes Soft to palpation and Yes No hepatosplenomegaly present Extremity: COMMON NORMALS: normal to inspection, full ROM, capillary refill normal, no calf tenderness and no pedal edema Neuro: COMMON NORMALS: patient oriented x3 SENSORIUM/ORIENTATION: Yes alert MENINGEAL SIGNS: Yes no meningeal signs Course Reevaluation(s): Reevaluation #1: Discussed his lab and imaging findings with him. No acute findings. BUN/creatinine ratio is consistent with dehydration. Otherwise nothing acute. He will be discharged home on conservative measures. He voiced understanding and is in agreement with the plan Time: 20:18 Vital Signs: Vital signs: Vital Signs Temperature 98.2 F 05/28/20 17:15 Pulse Rate 89 05/28/20 21:43 Respiratory Rate 16 05/28/20 21:43 Blood Pressure 134/85 05/28/20 21:43 Pulse Oximetry 97 05/28/20 21:43 MDM - Syncope MDM Narrative: Medical decision making narrative: 64-year-old male who had a presyncopal event while working on cars. Evaluation in the emergency department was unremarkable and only shows mild dehydration. He was given 1000 mL of IV normal saline and discharged home on conservative measures. Lab Data: Labs: Lab Results 05/28/20 05/28/20 05/28/20 Range/Units 16:14 16:14 16:14 WBC 11.6 H (4.0-10.0) 10^3/ uL RBC 4.32 (4.1-5.3) 10^6/u L Hgb 13.5 (11.7-16.6) g/dL Hct 40.1 L (42.0-52.0) % MCV 92.8 (80-94) fL MCH 31.3 (28.0-34.0) pg MCHC 33.7 (30.0-36.0) g/dL RDW 13.3 (12.1-15.1) % Plt Count 254 (130-400) 10^3/c mm MPV 10.7 H (7.4-10.4) fL Neut % (Auto) 73.4 % Lymph % (Auto) 13.1 % [place] % (Auto) 12.3 % Eos % (Auto) 0.3 % Baso % (Auto) 0.3 % Neut # (Auto) 8.51 H (1.8-7.7) 10^3/u L Lymph # (Auto) 1.5 (0.8-4.8) 10^3/u L [place] # (Auto) 1.4 H (0.2-0.9) 10^3/u L Eos # (Auto) 0.0 (0.0-0.8) 10^3/u L Baso # (Auto) 0.0 (0.0-0.1) 10^3/u L Nucleated RBC % (a uto) 0 % Nucleated RBCs # 0.0 /100WBC PT 13.20 (12.1-14.9) SECO NDS INR 0.97 (0.8-1.2) D-Dimer 0.38 (0-0.59) ug/mIFE U Sodium 141 (136-145) mmol/L Potassium 4.4 (3.5-5.1) mmol/L Chloride 101 (98-107) mmol/L Carbon Dioxide 26 (22-29) mmol/L Anion Gap 18.4 (5-19) BUN 24 H (8-23) mg/dL Creatinine 1.1 (0.7-1.2) mg/dL GFR Calculation 67.8 L (90-130) mL/min Glucose 83 (65-115) mg/dL Calculated Osmolal ity 295 (285-295) mOsm/k g Calcium 9.2 (8.5-10.5) mg/dL Total Bilirubin 0.2 (0.15-1.2) mg/dL AST 17 (0-40) U/L ALT 20 (0-41) U/L Alkaline Phosphata se 64 (40-130) IU/L Creatine Kinase (39-308) U/L Troponin T Baselin e (0-15) ng/L Troponin T 120 Min [place] (0-15) ng/L Delta Troponin T (0-10) ABS# NT-Pro-B Natriuret Pep 97 (0-125) pg/mL Total Protein 6.7 (6.6-8.7) g/dL Albumin 4.5 (3.5-5.2) g/dL Globulin 2.2 (1.3-4.6) g/dL Lipase 32 (13-60) U/L Urine Color (Yellow) Urine Appearance (CLEAR) Urine pH (5-7) Ur Specific Gravit y (1.005-1.030) Urine Protein (Negative) Urine Glucose (UA) (Normal) Urine Ketones (Negative) Urine Blood (Negative) Urine Nitrate (Negative) Urine Bilirubin (Negative) Urine Urobilinogen (Negative) mg/dL Ur Leukocyte Macy ase (Negative) Urine RBC (0-2) /hpf Urine WBC (0-5) /hpf Ur Squamous Epith Cells (0-5) /hpf Amorphous Sediment Urine Bacteria (NONE) /hpf 05/28/20 05/28/20 05/28/20 Range/Units 16:14 16:14 16:20 WBC (4.0-10.0) 10^3/ uL RBC (4.1-5.3) 10^6/u L Hgb (11.7-16.6) g/dL Hct (42.0-52.0) % MCV (80-94) fL MCH (28.0-34.0) pg MCHC (30.0-36.0) g/dL RDW (12.1-15.1) % Plt Count (130-400) 10^3/c mm MPV (7.4-10.4) fL Neut % (Auto) % Lymph % (Auto) % [place] % (Auto) % Eos % (Auto) % Baso % (Auto) % Neut # (Auto) (1.8-7.7) 10^3/u L Lymph # (Auto) (0.8-4.8) 10^3/u L [place] # (Auto) (0.2-0.9) 10^3/u L Eos # (Auto) (0.0-0.8) 10^3/u L Baso # (Auto) (0.0-0.1) 10^3/u L Nucleated RBC % (a uto) % Nucleated RBCs # /100WBC PT (12.1-14.9) SECO NDS INR (0.8-1.2) D-Dimer (0-0.59) ug/mIFE U Sodium (136-145) mmol/L Potassium (3.5-5.1) mmol/L Chloride (98-107) mmol/L Carbon Dioxide (22-29) mmol/L Anion Gap (5-19) BUN (8-23) mg/dL Creatinine (0.7-1.2) mg/dL GFR Calculation (90-130) mL/min Glucose (65-115) mg/dL Calculated Osmolal ity (285-295) mOsm/k g Calcium (8.5-10.5) mg/dL Total Bilirubin (0.15-1.2) mg/dL AST (0-40) U/L ALT (0-41) U/L Alkaline Phosphata se (40-130) IU/L Creatine Kinase 167 (39-308) U/L Troponin T Baselin e 12 (0-15) ng/L Troponin T 120 Min [place] (0-15) ng/L Delta Troponin T (0-10) ABS# NT-Pro-B Natriuret Pep (0-125) pg/mL Total Protein (6.6-8.7) g/dL Albumin (3.5-5.2) g/dL Globulin (1.3-4.6) g/dL Lipase (13-60) U/L Urine Color Yellow (Yellow) Urine Appearance Clear (CLEAR) Urine pH 6.5 (5-7) Ur Specific Gravit y 1.010 (1.005-1.030) Urine Protein Neg (Negative) Urine Glucose (UA) Norm (Normal) Urine Ketones Negative (Negative) Urine Blood 2+ H (Negative) Urine Nitrate Negative (Negative) Urine Bilirubin Neg (Negative) Urine Urobilinogen Norm (Negative) mg/dL Ur Leukocyte Macy ase Negative (Negative) Urine RBC 10-15 H (0-2) /hpf Urine WBC 0-4 H (0-5) /hpf Ur Squamous Epith Cells 0-4 H (0-5) /hpf Amorphous Sediment Not Reportable Urine Bacteria Trace (NONE) /hpf 05/28/20 Range/Units 18:54 WBC (4.0-10.0) 10^3/ uL RBC (4.1-5.3) 10^6/u L Hgb (11.7-16.6) g/dL Hct (42.0-52.0) % MCV (80-94) fL MCH (28.0-34.0) pg MCHC (30.0-36.0) g/dL RDW (12.1-15.1) % Plt Count (130-400) 10^3/c mm MPV (7.4-10.4) fL Neut % (Auto) % Lymph % (Auto) % [place] % (Auto) % Eos % (Auto) % Baso % (Auto) % Neut # (Auto) (1.8-7.7) 10^3/u L Lymph # (Auto) (0.8-4.8) 10^3/u L [place] # (Auto) (0.2-0.9) 10^3/u L Eos # (Auto) (0.0-0.8) 10^3/u L Baso # (Auto) (0.0-0.1) 10^3/u L Nucleated RBC % (a uto) % Nucleated RBCs # /100WBC PT (12.1-14.9) SECO NDS INR (0.8-1.2) D-Dimer (0-0.59) ug/mIFE U Sodium (136-145) mmol/L Potassium (3.5-5.1) mmol/L Chloride (98-107) mmol/L Carbon Dioxide (22-29) mmol/L Anion Gap (5-19) BUN (8-23) mg/dL Creatinine (0.7-1.2) mg/dL GFR Calculation (90-130) mL/min Glucose (65-115) mg/dL Calculated Osmolal ity (285-295) mOsm/k g Calcium (8.5-10.5) mg/dL Total Bilirubin (0.15-1.2) mg/dL AST (0-40) U/L ALT (0-41) U/L Alkaline Phosphata se (40-130) IU/L Creatine Kinase (39-308) U/L Troponin T Baselin e (0-15) ng/L Troponin T 120 Min [place] 12.69 (0-15) ng/L Delta Troponin T 0.69 (0-10) ABS# NT-Pro-B Natriuret Pep (0-125) pg/mL Total Protein (6.6-8.7) g/dL Albumin (3.5-5.2) g/dL Globulin (1.3-4.6) g/dL Lipase (13-60) U/L Urine Color (Yellow) Urine Appearance (CLEAR) Urine pH (5-7) Ur Specific Gravit y (1.005-1.030) Urine Protein (Negative) Urine Glucose (UA) (Normal) Urine Ketones (Negative) Urine Blood (Negative) Urine Nitrate (Negative) Urine Bilirubin (Negative) Urine Urobilinogen (Negative) mg/dL Ur Leukocyte Macy ase (Negative) Urine RBC (0-2) /hpf Urine WBC (0-5) /hpf Ur Squamous Epith Cells (0-5) /hpf Amorphous Sediment Urine Bacteria (NONE) /hpf Imaging Data^: CXR: Attestation: I personally reviewed and interpreted this imaging study as follows: Radiologist's impression: [address] [address] XRay Report Signed Patient: Herrera Quintana #: [id number] : 8Acct#:[id number] Age/Sex: 64 / MADM Date: 05/28/20 Loc: ERRoom/Bed: Attending Dr: Ordering Provider/Ordering MD: Cruz Ashraf MD, [facility] Date of Service: 05/28/20 Procedure(s): XR chest 1V portable [id number] Accession Number(s): [id number] Report Number: [id number] PROCEDURE INFORMATION: Exam: XR Chest Exam date and time: 05/28/2020 6:16 PM Age: 64 years old Clinical indication: Other: Syncope; Additional info: Pre-syncope TECHNIQUE: Imaging protocol: XR of the chest. Views: 1 view. COMPARISON: CR XR chest 2V* [id number] 10/14/2019 11:40 AM FINDINGS: Lungs: Unremarkable. No consolidation. Pleural spaces: Unremarkable. No pleural effusion. No pneumothorax. Heart/Mediastinum: Unremarkable. No cardiomegaly. Vasculature: Mild atherosclerosis of aortic arch. Bones/joints: Surgical anchors within bilateral humeral heads. No acute thoracic fractures. XR/XR chest 1V portable [id number] IMPRESSION: 1. No acute chest findings. 2. No change from prior. Dictated By:Robin Cole Signed By:Yinka Cole Date/Time:05/28/201928 DD/ 26 EKG Data^: EKG 1: Attestation: I personally reviewed and interpreted this EKG as follows: EKG interpretation date: 05/28/20 EKG interpretation time: 17:26 Prior EKG tracings: not available for review Interpretation: Sinus rhythm with occasional PVCs. Heart rate 96 bpm. Q waves in leads II, 3, aVF. LVH. No ST changes. Discharge Plan Discharge Patient Disposition: Home Clinical Impression: Acute dehydration, Pre-syncope Condition: Stable Prescriptions: Continued calcium carbonate [Calcium 600] 600 mg calcium (1,500 mg) tablet 600 mg PO DAILY@1200 RF: 0 sildenafil 50 mg tablet 50 mg PO QDAY PRN (Reason: erectile disfunction) RF: 0 Symbicort 80-4.5 mcg/actuation HFA aerosol inhaler 2 puff INHALATION Q12H 30 Days Qty: 10.2 RF: 2 albuterol sulfate [Ventolin HFA] 90 mcg/actuation HFA aerosol inhaler 1 - 2 puff INHALATION Q6H PRN (Reason: shortness of breath) 30 Days Qty: 18 RF: 2 aspirin 81 mg tablet,delayed release (DR/EC) 81 mg PO DAILY@1200 RF: 0 oxycodone 5 mg tablet 5 mg PO .5 times a day PRN (Reason: pain) 30 Days Qty: 150 RF: 0 fluticasone propionate [Allergy Relief (fluticasone)] 50 mcg/actuation spray,suspension 1 spray INTRANASAL DAILY Qty: 15.8 RF: 3 cyclobenzaprine 10 mg tablet 10 mg PO TID PRN (Reason: MUSCLE SPASMS) RF: 0 carvedilol 6.25 mg tablet 6.25 mg PO BID@0800,2200 RF: 0 prednisone 10 mg tablet 10 mg PO DAILY PRN (Reason: joint pain) RF: 0 prednisone 5 mg tablet 5 mg PO DAILY@0800 RF: 0 amitriptyline 25 mg tablet 25 mg PO BEDTIME@2200 RF: 0 tamsulosin 0.4 mg capsule 0.4 mg PO Q12H RF: 0 esomeprazole magnesium 40 mg capsule,delayed release(DR/EC) 40 mg PO DAILY@1200 RF: 0 losartan 25 mg tablet 25 mg PO DAILY@0800 RF: 0 hydrochlorothiazide 25 mg tablet 25 mg PO DAILY@0800 RF: 0 potassium chloride 10 mEq tablet,ER particles/crystals 10 meq PO DAILY@1200 RF: 0 magnesium L-lactate 84 mg tablet extended release 84 mg PO DAILY@1800 RF: 0 Rinvoq 15 mg tablet extended release 24 hr 15 mg PO DAILY@0800 RF: 0 Discharge Orders: Discharge ED (Routine); Ordered 05/28/20 Ordered By: Cruz Ashraf Referrals: Debbie Cardoso MD [Primary Care Provider] - 1-3 days Discharge Diet: Usual diet Discharge Activity: Increase activity as tolerated Patient Instructions: Dehydration (ED) Activity Restrictions/Additional Instructions: Return for any new or worsening symptoms. Follow-up with your primary care provider within 3 days. It is important to drink plenty of fluids to keep well-hydrated so increase your fluid intake. Coding Level of Care Code [facility]
[2020-05-28 21:43] VITALS: BP 134/85; PULSE 89; RESP 16; O2SAT 97
== END 2020-05-28 21:45 | disposition home or self-care (01) ==
PROVIDERS: Emergency Provider Family Medicine; PCP Family Medicine
DX: R55 Syncope and collapse (principal); E86.0 Dehydration; Z79.82 Long term (current) use of aspirin; I11.0 Hypertensive heart disease with heart failure; I50.9 Heart failure, unspecified; J44.9 Chronic obstructive pulmonary disease, unspecified; Z87.891 Personal history of nicotine dependence
CPT/HCPCS: 36415; 71045; 80053; 81001; 82550; 83690; 83880; 84484; 85025; 85378; 85610; 87086; 93005; 96360; 99283; J7030

== ENCOUNTER → 2020-06-20 10:43 | Outpatient (BNVA) | payer MEDICARE, MEDICAID, SELFPAY | PROVIDERS: PCP Family Medicine; Visit Provider Family Medicine | DX: R53.82 Chronic fatigue, unspecified (principal); R53.83 Other fatigue; I10 Essential (primary) hypertension; I88.9 Nonspecific lymphadenitis, unspecified | CPT/HCPCS: 80053; 82607; 82652; 84439; 84443; 84481; 85025 ==

== ENCOUNTER → 2020-06-27 10:30 | Outpatient (BNVA) | payer MEDICARE, MEDICAID, SELFPAY | PROVIDERS: PCP Family Medicine; Visit Provider Nurse Practitioner Family | DX: I88.9 Nonspecific lymphadenitis, unspecified (principal); R53.82 Chronic fatigue, unspecified; Z79.899 Other long term (current) drug therapy | CPT/HCPCS: 85025 ==

== ENCOUNTER → 2020-07-04 14:47 | Outpatient (BNVA) | payer MEDICARE, MEDICAID, SELFPAY | PROVIDERS: PCP Family Medicine; Visit Provider Nurse Practitioner Family | DX: M25.562 Pain in left knee (principal) | CPT/HCPCS: 73562 ==

== ENCOUNTER 2020-07-06 11:32 | Inpatient (IN) | payer MEDICARE, MEDICAID, SELFPAY ==
[2020-07-06] VITALS (18 sets, daily range): BP systolic 84–126; BP diastolic 51–71; PULSE 54–114; RESP 16–24; TEMP 36.5–38.1; O2SAT 91–97; BMI 26.6
--- NOTE | 2020-07-06 11:45 | CTR_ITS ---
PROCEDURE INFORMATION: Exam: CT Head Without Contrast Exam date and time: 07/06/2020 1:23 PM Age: 64 years old Clinical indication: Pain; Other: Weakness, generalized; Headache not specified TECHNIQUE: Imaging protocol: Computed tomography of the head without contrast. Radiation optimization: All CT scans at this facility use at least one of these dose optimization techniques: automated exposure control; mA and/or kV adjustment per patient size (includes targeted exams where dose is matched to clinical indication); or iterative reconstruction. COMPARISON: No relevant prior studies available. RADIATION DOSE METRICS: Total DLP (mGy-cm): 991.58 FINDINGS: Brain: There is no acute intracranial hemorrhage, cerebral edema, or midline shift. A small area of chronic encephalomalacia is present in the left temporal lobe. Cerebral ventricles: No hydrocephalus. Bones/joints: No acute fracture. Paranasal sinuses: There is mild mucosal thickening noted within the paranasal sinuses. Mastoid air cells: The mastoid air cells are clear. Orbital cavity: Unremarkable as visualized. Soft tissues: Unremarkable. CT/CT head wo con* [id number] IMPRESSION: No acute intracranial abnormality. Radiation Dose CTDIVOL = (mGy): DLP = 991.58 (mGy-cm)
--- NOTE | 2020-07-06 11:45 | XRR_ITS ---
PROCEDURE INFORMATION: Exam: XR Chest Exam date and time: 07/06/2020 12:15 PM Age: 64 years old Clinical indication: Condition or disease; Lung condition and disease; Copd; Complications not specified; Cough and dyspnea; Additional info: Dyspnea cough copd TECHNIQUE: Imaging protocol: XR of the chest. Views: 1 view. COMPARISON: CR (CHEST, ) 05/28/2020 6:26 PM FINDINGS: Lungs: Unremarkable. No consolidation. Pleural spaces: Unremarkable. No pleural effusion. No pneumothorax. Heart/Mediastinum: Unremarkable. No cardiomegaly. Bones/joints: Unremarkable. XR/XR chest 1V portable [id number] IMPRESSION: No acute findings.
--- NOTE | 2020-07-06 11:52 | W.ED.WEAKNES ---
HPI - Weakness General: Chief complaint: Weakness Stated complaint: TOPETE/ COUGH/ WEAKNESS Time Seen by Provider: 07/06/20 11:33 History of Present Illness: HPI Narrative: The patient is a 64-year-old male with past medical history COPD, CHF, recently being treated with antibiotics for a lymph node which has since disappeared by his primary care physician. He comes to the ER complaining of 3 days productive cough causing a headache which is severe, shortness of breath, fatigue, generalized weakness, fever and chills. Associated symptoms: Reports fever(s); Denies chest pain, confusion or headache(s) Review of Systems General: Reports: 10 or more systems reviewed and unremarkable except in HPI and below Const: Reports: fever(s), body aches and fatigue Eyes: Denies: change in vision, blurry vision or eye redness ENMT: Denies: throat pain, swelling of lips/tongue, ear or mastoid pain or nasal congestion Card: Denies: chest pain, palpitations, irregular heart rhythm, edema, dyspnea on exertion or orthopnea Resp: Reports: dyspnea, productive cough, non-productive cough and wheezing GI: Denies: abdominal pain, diarrhea or GI cramping : Denies: flank pain, urinary frequency or urinary urgency Musc: Denies: neck pain, back pain, extremity pain, joint pain, joint redness, limited range of motion or muscle weakness Skin/Breast: Denies: rash, pruritus, erythema, skin pain or skin tenderness Neuro: Denies: headache(s), numbness in extremities, weakness in extremities, sensory changes, difficulty walking, dizziness, confusion or Slurred speech present Psych: Denies: anxiety or depression Endo: Denies: polyuria All/Imm: Denies: urticaria, throat swelling or tongue swelling PFSH ED PFSH: Medical History BPH (benign prostatic hyperplasia) BPH loc w urin obs/LUTS Cervical arthritis CHF (congestive heart failure) Chronic radicular low back pain COPD (chronic obstructive pulmonary disease) DDD (degenerative disc disease) Encounter for long-term opiate analgesic use Erectile dysfunction Fatigue GERD (gastroesophageal reflux disease) H/O chronic active hepatitis Insomnia Rheumatoid arthritis Seropositive rheumatoid arthritis of multiple sites Trigger finger of left hand Surgical History H/O arthroscopic knee surgery left -2018 H/O hemorrhoidectomy H/O repair of rotator cuff Bilateral rt. 2010 left 2016 H/O submucous nasal surgery History of ear surgery History of facial surgery History of laminectomy Lumbar Status post colonoscopy (07/15/19) Repeat in 10 years Family History Father Hypertension Heart disease Diabetes Cancer colon cancer Mother Hypertension Stroke Sister Hypertension Liver disease Brother Hypertension Family/Other Heart disease [employer] Cancer PROSTATE-UNCLE Other Arthritis Denies family history of Anesthesia complication Bleeding disorder Social History Smoking and tobacco status: former smoker Quit status (tobacco): has quit using tobacco Year quit tobacco: 02/2019 Second hand smoke exposure: No Alcohol intake: former Year of sobriety/quit date alcohol: 2017 Desire information about alcohol rehabilitation?: No Desire information about substance/drug rehabilitation?: No History of recent travel: No Sexually active: Yes Current gender identity: Male Physical Exam Const: COMMON NORMALS: no acute distress, average body habitus, patient oriented x3, no limitations, alert and well nourished GENERAL APPEARANCE: cooperative, well kempt, well developed and ill appearing ORIENTATION/CONSCIOUSNESS: Yes awake, Yes oriented to person, Yes oriented to place and Yes oriented to time OTHER: fatigued HENMT: COMMON NORMALS: normocephalic, external ears normal and Normal external nose present HEAD & SCALP: normal to inspection and normocephalic NOSE: Normal external nose present EXTERNAL EAR: Yes external ears normal MOUTH: Normal oral and palatal mucosa present THROAT: posterior oropharynx normal Eye: COMMON NORMALS: Equal, round and reactive pupils present and EOMs intact bilaterally GENERAL EYE: appearance normal, both eyes and all related structures PUPIL: Yes Equal, round and reactive pupils present Neck/C-Spine: COMMON NORMALS: full ROM, no lymphadenopathy, no meningeal signs and no JVD GENERAL: Yes normal visual inspection Lymph: LYMPHATIC: no lymphadenopathy noted Chest: COMMONS NORMALS: normal inspection of the chest and normal palpation of entire chest wall Resp: COMMON NORMALS: normal respiratory effort, No retractions, No use of accessory muscles, clear to auscultation bilaterally and percussion normal EFFORT & INSPECTION: Yes able to speak in complete sentences AUSCULTATION: clear to auscultation bilaterally and diminished lung sounds PERCUSSION: percussion normal Cardio: COMMON NORMALS: no JVD, regular rate, regular rhythm, S1 normal heart sound present, S2 normal heart sound present and Peripheral pulses 2+ throughout RATE: regular rate RHYTHM: regular rhythm HEART SOUNDS: S1 normal heart sound present and S2 normal heart sound present PERIPHERAL PULSES: Peripheral pulses 2+ throughout GI: COMMON NORMALS: Normal to inspection, nondistended, normoactive bowel sounds present, Soft to palpation, non-tender and no masses INSPECTION: Yes normal to inspection PALPATION: Yes Soft to palpation : COMMON NORMALS: Yes no CVA tenderness BLADDER/KIDNEY EXAM: Yes no CVA tenderness Back/Pelvis: COMMON NORMALS: no CVA tenderness, thoracic and lumbar spine normal to inspection, no thoracic nor lumbar tenderness and thoraco-lumbar ROM normal Extremity: COMMON NORMALS: normal to inspection, full ROM, capillary refill normal, no joint enlargement and no pedal edema GENERAL: Yes normal exam except as noted Neuro: COMMON NORMALS: patient oriented x3, CN's II-XII intact bilaterally, moves all extremities, no focal motor deficits, no sensory deficits noted and gait normal SENSORIUM/ORIENTATION: Yes alert, Yes oriented to person, Yes oriented to place and Yes oriented to time MENINGEAL SIGNS: Yes no meningeal signs Psych: COMMON NORMALS: mental status grossly normal, Normal thought process present, cooperative, normal affect and speech normal APPEARANCE: Yes well kempt ATTITUDE: Yes calm SPEECH: Yes normal speech THOUGHT PROCESS: Normal thought process present Skin: COMMON NORMALS: no rashes or lesions noted GENERAL SKIN EXAM: no rashes or lesions noted Course Vital Signs: Vital signs: Vital Signs Temperature 98.2 F 07/07/20 07:45 Pulse Rate 92 07/07/20 08:51 Respiratory Rate 22 H 07/07/20 08:40 Blood Pressure 116/71 07/07/20 07:45 Pulse Oximetry 96 07/07/20 08:40 MDM - Weakness MDM Narrative: Medical decision making narrative: The patient comes to the ER complaining of fatigue, productive cough, fever, headache. His chest CT shows a Covid-like pattern. He swab negative for Covid and the flu. He continues to be hypotensive even after 2 L of fluid. He was started on an antibiotic and admitted to Dr. Yu. He was swabbed for PCR Covid and given a steroid as well. Lab Data: Labs: Lab Results 07/06/20 07/06/20 07/06/20 Range/Units 12:25 12:25 12:25 WBC 13.6 H (4.0-10.0) 10^3/ uL RBC 5.10 (4.1-5.3) 10^6/u L Hgb 15.5 (11.7-16.6) g/dL Hct 44.7 (42.0-52.0) % MCV 87.6 (80-94) fL MCH 30.4 (28.0-34.0) pg MCHC 34.7 (30.0-36.0) g/dL RDW 12.8 (12.1-15.1) % Plt Count 224 (130-400) 10^3/c mm MPV 10.2 (7.4-10.4) fL Neut % (Auto) 79.4 % Lymph % (Auto) 5.6 % Upton % (Auto) 14.4 % Eos % (Auto) 0.0 % Baso % (Auto) 0.2 % Neut # (Auto) 10.79 H (1.8-7.7) 10^3/u L Lymph # (Auto) 0.8 (0.8-4.8) 10^3/u L Upton # (Auto) 2.0 H (0.2-0.9) 10^3/u L Eos # (Auto) 0.0 (0.0-0.8) 10^3/u L Baso # (Auto) 0.0 (0.0-0.1) 10^3/u L Nucleated RBC % (a uto) 0 % Nucleated RBCs # 0.0 /100WBC D-Dimer (0-0.59) ug/mIFE U Sodium 135 L (136-145) mmol/L Potassium 4.3 (3.5-5.1) mmol/L Chloride 93 L (98-107) mmol/L Carbon Dioxide 26 (22-29) mmol/L Anion Gap 20.3 H (5-19) BUN 24 H (8-23) mg/dL Creatinine 1.3 H (0.7-1.2) mg/dL GFR Calculation 55.9 L (90-130) mL/min Glucose 124 H (65-115) mg/dL Calculated Osmolal ity 285 (285-295) mOsm/k g Lactate (0.5-2.2) mmol/L Calcium 9.0 (8.5-10.5) mg/dL Total Bilirubin 0.5 (0.15-1.2) mg/dL AST 23 (0-40) U/L ALT 15 (0-41) U/L Alkaline Phosphata se 56 (40-130) IU/L Troponin T Baselin e 32 H (0-15) ng/L Troponin T 120 Min [place] (0-15) ng/L Delta Troponin T (0-10) ABS# C-Reactive Protein (0.0-4.9) mg/L NT-Pro-B Natriuret Pep 4486 H (0-125) pg/mL Total Protein 7.3 (6.6-8.7) g/dL Albumin 4.1 (3.5-5.2) g/dL Globulin 3.2 (1.3-4.6) g/dL Procalcitonin (0-0.5) ng/mL TSH (0.27-4.20) uIU/ mL Hepatitis A IgM Ab (Nonreactive) Hep Bs Antigen (Nonreactive) Hep B Core IgM Ab (Nonreactive) Hepatitis C Antibo dy (Nonreactive) HIV 1&2 Ab & HIV 1 Ag (Non-Reactiv) HIV 1&2 Antibody (Non-Reactiv) Influenza Type A A g (Negative) Influenza Type B A g (Negative) SARS-CoV-2 Ag (Rap id) (Negative) 07/06/20 07/06/20 07/06/20 Range/Units 12:25 12:25 12:25 WBC (4.0-10.0) 10^3/ uL RBC (4.1-5.3) 10^6/u L Hgb (11.7-16.6) g/dL Hct (42.0-52.0) % MCV (80-94) fL MCH (28.0-34.0) pg MCHC (30.0-36.0) g/dL RDW (12.1-15.1) % Plt Count (130-400) 10^3/c mm MPV (7.4-10.4) fL Neut % (Auto) % Lymph % (Auto) % Upton % (Auto) % Eos % (Auto) % Baso % (Auto) % Neut # (Auto) (1.8-7.7) 10^3/u L Lymph # (Auto) (0.8-4.8) 10^3/u L Upton # (Auto) (0.2-0.9) 10^3/u L Eos # (Auto) (0.0-0.8) 10^3/u L Baso # (Auto) (0.0-0.1) 10^3/u L Nucleated RBC % (a uto) % Nucleated RBCs # /100WBC D-Dimer (0-0.59) ug/mIFE U Sodium (136-145) mmol/L Potassium (3.5-5.1) mmol/L Chloride (98-107) mmol/L Carbon Dioxide (22-29) mmol/L Anion Gap (5-19) BUN (8-23) mg/dL Creatinine (0.7-1.2) mg/dL GFR Calculation (90-130) mL/min Glucose (65-115) mg/dL Calculated Osmolal ity (285-295) mOsm/k g Lactate (0.5-2.2) mmol/L Calcium (8.5-10.5) mg/dL Total Bilirubin (0.15-1.2) mg/dL AST (0-40) U/L ALT (0-41) U/L Alkaline Phosphata se (40-130) IU/L Troponin T Baselin e (0-15) ng/L Troponin T 120 Min [place] (0-15) ng/L Delta Troponin T (0-10) ABS# C-Reactive Protein 241.8 H (0.0-4.9) mg/L NT-Pro-B Natriuret Pep (0-125) pg/mL Total Protein (6.6-8.7) g/dL Albumin (3.5-5.2) g/dL Globulin (1.3-4.6) g/dL Procalcitonin 0.92 H (0-0.5) ng/mL TSH 0.66 (0.27-4.20) uIU/ mL Hepatitis A IgM Ab Non-reactive (Nonreactive) Hep Bs Antigen Non-reactive (Nonreactive) Hep B Core IgM Ab Non-reactive (Nonreactive) Hepatitis C Antibo dy Reactive H (Nonreactive) HIV 1&2 Ab & HIV 1 Ag (Non-Reactiv) HIV 1&2 Antibody (Non-Reactiv) Influenza Type A A g (Negative) Influenza Type B A g (Negative) SARS-CoV-2 Ag (Rap id) (Negative) 07/06/20 07/06/20 07/06/20 Range/Units 12:25 12:42 12:42 WBC (4.0-10.0) 10^3/ uL RBC (4.1-5.3) 10^6/u L Hgb (11.7-16.6) g/dL Hct (42.0-52.0) % MCV (80-94) fL MCH (28.0-34.0) pg MCHC (30.0-36.0) g/dL RDW (12.1-15.1) % Plt Count (130-400) 10^3/c mm MPV (7.4-10.4) fL Neut % (Auto) % Lymph % (Auto) % Upton % (Auto) % Eos % (Auto) % Baso % (Auto) % Neut # (Auto) (1.8-7.7) 10^3/u L Lymph # (Auto) (0.8-4.8) 10^3/u L Upton # (Auto) (0.2-0.9) 10^3/u L Eos # (Auto) (0.0-0.8) 10^3/u L Baso # (Auto) (0.0-0.1) 10^3/u L Nucleated RBC % (a uto) % Nucleated RBCs # /100WBC D-Dimer 3.91 H (0-0.59) ug/mIFE U Sodium (136-145) mmol/L Potassium (3.5-5.1) mmol/L Chloride (98-107) mmol/L Carbon Dioxide (22-29) mmol/L Anion Gap (5-19) BUN (8-23) mg/dL Creatinine (0.7-1.2) mg/dL GFR Calculation (90-130) mL/min Glucose (65-115) mg/dL Calculated Osmolal ity (285-295) mOsm/k g Lactate 1.1 (0.5-2.2) mmol/L Calcium (8.5-10.5) mg/dL Total Bilirubin (0.15-1.2) mg/dL AST (0-40) U/L ALT (0-41) U/L Alkaline Phosphata se (40-130) IU/L Troponin T Baselin e (0-15) ng/L Troponin T 120 Min [place] (0-15) ng/L Delta Troponin T (0-10) ABS# C-Reactive Protein (0.0-4.9) mg/L NT-Pro-B Natriuret Pep (0-125) pg/mL Total Protein (6.6-8.7) g/dL Albumin (3.5-5.2) g/dL Globulin (1.3-4.6) g/dL Procalcitonin (0-0.5) ng/mL TSH (0.27-4.20) uIU/ mL Hepatitis A IgM Ab (Nonreactive) Hep Bs Antigen (Nonreactive) Hep B Core IgM Ab (Nonreactive) Hepatitis C Antibo dy (Nonreactive) HIV 1&2 Ab & HIV 1 Ag Non-reactive (Non-Reactiv) HIV 1&2 Antibody Non-reactive (Non-Reactiv) Influenza Type A A g (Negative) Influenza Type B A g (Negative) SARS-CoV-2 Ag (Rap id) (Negative) 07/06/20 07/06/20 07/06/20 Range/Units 14:15 14:15 14:33 WBC (4.0-10.0) 10^3/ uL RBC (4.1-5.3) 10^6/u L Hgb (11.7-16.6) g/dL Hct (42.0-52.0) % MCV (80-94) fL MCH (28.0-34.0) pg MCHC (30.0-36.0) g/dL RDW (12.1-15.1) % Plt Count (130-400) 10^3/c mm MPV (7.4-10.4) fL Neut % (Auto) % Lymph % (Auto) % Upton % (Auto) % Eos % (Auto) % Baso % (Auto) % Neut # (Auto) (1.8-7.7) 10^3/u L Lymph # (Auto) (0.8-4.8) 10^3/u L Upton # (Auto) (0.2-0.9) 10^3/u L Eos # (Auto) (0.0-0.8) 10^3/u L Baso # (Auto) (0.0-0.1) 10^3/u L Nucleated RBC % (a uto) % Nucleated RBCs # /100WBC D-Dimer (0-0.59) ug/mIFE U Sodium (136-145) mmol/L Potassium (3.5-5.1) mmol/L Chloride (98-107) mmol/L Carbon Dioxide (22-29) mmol/L Anion Gap (5-19) BUN (8-23) mg/dL Creatinine (0.7-1.2) mg/dL GFR Calculation (90-130) mL/min Glucose (65-115) mg/dL Calculated Osmolal ity (285-295) mOsm/k g Lactate (0.5-2.2) mmol/L Calcium (8.5-10.5) mg/dL Total Bilirubin (0.15-1.2) mg/dL AST (0-40) U/L ALT (0-41) U/L Alkaline Phosphata se (40-130) IU/L Troponin T Baselin e (0-15) ng/L Troponin T 120 Min [place] 24.02 H (0-15) ng/L Delta Troponin T -7.98 L (0-10) ABS# C-Reactive Protein (0.0-4.9) mg/L NT-Pro-B Natriuret Pep (0-125) pg/mL Total Protein (6.6-8.7) g/dL Albumin (3.5-5.2) g/dL Globulin (1.3-4.6) g/dL Procalcitonin (0-0.5) ng/mL TSH (0.27-4.20) uIU/ mL Hepatitis A IgM Ab (Nonreactive) Hep Bs Antigen (Nonreactive) Hep B Core IgM Ab (Nonreactive) Hepatitis C Antibo dy (Nonreactive) HIV 1&2 Ab & HIV 1 Ag (Non-Reactiv) HIV 1&2 Antibody (Non-Reactiv) Influenza Type A A g Negative (Negative) Influenza Type B A g Negative (Negative) SARS-CoV-2 Ag (Rap id) Negative (Negative) Discharge Plan Discharge Patient Disposition: Admitted As Inpatient Admit Provider: Nitesh Yu Clinical Impression: PVC (premature ventricular contraction), Atypical pneumonia, Sepsis, LEIGH (acute kidney injury) Condition: Stable Coding Level of Care Code ED Veterinary Laboratory Diagnostician for George Dominique
[2020-07-06] MEDS: ipratropium-albuterol 3 mL Neb INHALATION (12:17)
[2020-07-06 12:45] LABS: Basophils % 0.2 %; Hematocrit 44.7 % (42.0-52.0); Hemoglobin 15.5 g/dL (11.7-16.6); Lymphocytes # 0.8 10^3/uL (0.8-4.8); Lymphocytes % 5.6 %; Mean Corpuscular HGB Conc 34.7 g/dL (30.0-36.0); Mean Corpuscular Hemoglobin 30.4 pg (28.0-34.0); Mean Corpuscular Volume 87.6 fL (80-94); Mean Platelet Volume 10.2 fL (7.4-10.4); Monocytes % 14.4 %; Neutrophils # 10.79 10^3/uL (1.8-7.7); Neutrophils % 79.4 %; Nucleated Red Blood Cells % 0 %; Platelet Count 224 10^3/cmm (130-400); Red Cell Distribution Width 12.8 % (12.1-15.1); White Blood Count 13.6 10^3/uL (4.0-10.0)
[2020-07-06] MEDS: acetaminophen 500 mg Tablet 1000 MG PO (12:58)
[2020-07-06] MEDS: sodium chloride 0.9% 1,000 ML 999 ML IV ×2 (13:00→15:59)
--- NOTE | 2020-07-06 13:00 | PC.PHAR ---
pt states he takes care of his own medications-pt states he hasnt taken any of his medications since friday07/04/20
[2020-07-06] MEDS: levofloxacin-dextrose 5 % 750 MG/150 ML PREMIX 100 MG IV (13:01)
[2020-07-06 13:03] LABS: D Dimer 3.91 ug/mIFEU (0-0.59)
[2020-07-06 13:14] LABS: Troponin(5th) Baseline 32 ng/L (0-15)
[2020-07-06 13:19] LABS: Alanine Aminotransferase 15 U/L (0-41); Albumin Level 4.1 g/dL (3.5-5.2); Alkaline Phosphatase 56 IU/L (40-130); Anion Gap 20.3 (5-19); Blood Urea Nitrogen 24 mg/dL (8-23); Carbon Dioxide 26 mmol/L (22-29); Chloride 93 mmol/L (98-107); Globulin 3.2 g/dL (1.3-4.6); Glomerular Filtration Rate 55.9 mL/min (90-130); Glucose 124 mg/dL (65-115); NT Pro B Type Natriuretic Pept 4486 pg/mL (0-125); Osmolality Calculated 285 mOsm/kg (285-295); Potassium 4.3 mmol/L (3.5-5.1); Sodium 135 mmol/L (136-145); Total Bilirubin 0.5 mg/dL (0.15-1.2); Total Protein 7.3 g/dL (6.6-8.7)
[2020-07-06 13:20] LABS: Aspartate Amino Transferase 23 U/L (0-40)
[2020-07-06 13:22] LABS: Lactate (Lactic Acid level) 1.1 mmol/L (0.5-2.2)
--- NOTE | 2020-07-06 13:22 | CTR_ITS ---
PROCEDURE INFORMATION: Exam: CTA Chest With Contrast Exam date and time: 07/06/2020 1:23 PM Age: 64 years old Clinical indication: Abnormal findings; Abnormal diagnostic tests; Elevated d-dimer; Shortness of breath; Additional info: Dyspnea. Elevated d dimer TECHNIQUE: Imaging protocol: Computed tomographic angiography of the chest with contrast. 3D rendering (Not supervised by radiologist): MIP and/or 3D reconstructed images were created by the technologist. Radiation optimization: All CT scans at this facility use at least one of these dose optimization techniques: automated exposure control; mA and/or kV adjustment per patient size (includes targeted exams where dose is matched to clinical indication); or iterative reconstruction. Contrast material: VISI; Contrast volume: 65 ml; Contrast route: INTRAVENOUS (IV); COMPARISON: CR XR chest 1V portable [id number] 07/06/2020 11:59 AM RADIATION DOSE METRICS: Total DLP (mGy-cm): 559.44 FINDINGS: Pulmonary arteries: Normal. No pulmonary emboli. Aorta: Mild diffuse atherosclerotic disease is present. No aneurysm. Lungs: There is very subtle bilateral ground-glass opacities in a predominantly peripheral distribution, right much greater than left. Pleural spaces: Unremarkable. No pneumothorax. No pleural effusion. Heart: Normal heart size. Coronary atherosclerotic calcifications seen. No pericardial effusion. Lymph nodes: There is enlarged lymph node in the left axillary region, the largest with a small calcification measuring 1.7 cm in transverse dimension. Liver: The liver is diffusely decreased in density, compatible with hepatic steatosis. Spleen: A small accessory splenule is noted in the left upper quadrant. The spleen is unremarkable. Bones/joints: Degenerative changes of the spine seen. Surgical changes of the right shoulder joint noted. There is a nondisplaced fracture of the left lateral 6th rib and possibly 7th rib. Old healed fracture deformities noted along the lateral aspect of the left 3rd through 7th ribs. Soft tissues: Unremarkable. CT/CT angio chest PE protcl [id number] IMPRESSION: 1. No pulmonary embolus. 2. Commonly reported imaging features of (COVID-19) pneumonia are present. Other processes such as influenza pneumonia and organizing pneumonia, as can be seen with drug toxicity and connective tissue disease, can cause a similar imaging pattern. 3. Left axillary lymphadenopathy. Clinical correlation is recommended. Radiation Dose CTDIVOL = (mGy): DLP = 559.44 (mGy-cm)
--- NOTE | 2020-07-06 13:49 | ECG_ITS ---
[facility] Test Date: 2020-07-06 Pat Name: Herrera Quintana Department: Room: Gender: Male [employer] Therapist: : [id number] Requested By: Levi Washburn Order Number: [id number] Kelly MD: Oseas Baez M.D. Measurements Intervals [place] Rate: 102 P: 64 IA: 144 QRS: 50 QRSD: 101 T: 75 QT: 378 QTc: 495 Interpretive Statements Normal sinus rhythm with frequent supraventricular ectopics in the form of bigeminy and occasional premature ventricular contractions Nonspecific T wave changes compared to ECG 05/28/2020 17:25:53 The frequent supraventricular ectopics appear to be new Electronically Signed On 07-07-2020 0:09:06 CDT by Oseas Baez M.D. [id number]
[2020-07-06 14:46] LABS: Influenza A by IFA Negative (Negative); Influenza B by IFA Negative (Negative)
[2020-07-06 15:02] LABS: SARS Covid-2 Antigen Negative (Negative)
[2020-07-06 15:03] LABS: Troponin 5 2HR 24.02 ng/L (0-15)
[2020-07-06] MEDS: dexamethasone 10 mg/mL INJ IVP (15:57)
--- NOTE | 2020-07-06 16:36 | P.HP_ITS ---
Providers/Chief Complaint Admitting Physician: Nitesh Yu MD Primary Care Provider: Debbie Cardoso MD Chief Complaint: TOPETE/ COUGH/ WEAKNESS History of Present Illness Herrera Quintana is a 64 year old male with a past medical history of rheumatoid arthritis on Rinvoq, COPD, current smoker, chronic pain on opiates, hypertension, hyperlipidemia, CHF, BPH who presents [facility] due to a 2-day history of fevers, chills, fatigue, malaise, cough, shortness of breath. Patient tells me for the last 2 days he has had poor appetite, fevers, chills, fatigue, malaise, cough, shortness of breath, no loss of taste, no loss of smell, does have poor appetite, has a headache, has lightheadedness, no neck pain, no neck stiffness, no changes in his vision, no chest pain, no palpi tations, no abdominal pain, no diarrhea, he did have a tick bite roughly 2 days ago which she removed, no cat or dog bites, he has been tested for TB multiple times has come back negative as he is on revoke, is on chronic steroids. In the emergency room patient was found to have a blood pressure in the 80s over 50s, receiving fluids, temp 100.4, respiratory rate 19, pulse 86, showing bigeminy, frequent PVCs on telemetry, white blood cell count 13.6, neutrophilic, D-dimer 3.9, creatinine 1.3, lactic acid 1.1, BNP 4486, troponin 32, CT of the chest shows subtle bilateral groundglass opacities predominate in the peripheral distribution, right greater than left, enlarged axillary lymph node, Review of Systems Const: Reports: fever(s), chills, body aches, fatigue and malaise Eyes: Denies: change in vision or blurry vision ENMT: Reports: nasal congestion Card: Denies: chest pain, palpitations or edema Resp: Reports: dyspnea and productive cough; Denies: non-productive cough or wheezing GI: Denies: abdominal pain, nausea, vomiting, hematemesis, diarrhea, constipation, hematochezia or melena : Denies: flank pain, difficulty urinating, dysuria or urinary frequency Musc: Denies: neck pain or back pain Skin/Breast: Reports: rash Neuro: Reports: headache(s); Denies: dizziness or vertigo Endo: Denies: polyuria or polydipsia All/Imm: Denies: urticaria or facial swelling Medications/Allergies Home Medications Medication Instructions Recorded Confirmed Last Taken Type sildenafil 50 mg tablet 50 mg PO PRN PRN tab 03/17/19 07/06/20 07/11/19 History albuterol sulfate 90 mcg/actuation 1 - 2 puff INHALATION Q6H PRN 30 05/20/19 07/06/20 05/27/20 Rx aerosol inhaler Days #18 gm budesonide-formoterol HFA 80 2 puff INHALATION Q12H 30 Days 05/20/19 07/06/20 0 05/27/20 Rx mcg-4.5 mcg/actuation aerosol #10.2 gm inhaler aspirin 81 mg tablet,delayed 81 mg PO DAILY@06/29/19 07/06/20 07/04/20 History release calcium carbonate 600 mg calcium 600 mg PO DAILY@12/22/19 07/06/20 07/04/20 History (1,500 mg) tablet oxycodone 5 mg tablet 5 mg PO .5 times a day PRN 30 Days 05/25/20 07/06/20 07/04/20 Rx #150 tab amitriptyline 25 mg PO BEDTIME@2200 05/28/20 07/06/20 07/04/20 History cyclobenzaprine 10 mg PO TID PRN 05/28/20 07/06/20 05/28/20 History esomeprazole magnesium 40 mg PO DAILY@05/28/20 07/06/20 07/04/20 History hydrochlorothiazide 25 mg PO DAILY@05/28/20 07/06/20 07/04/20 History losartan 25 mg PO DAILY@05/28/20 07/06/20 07/04/20 History potassium chloride 10 meq PO DAILY@05/28/20 07/06/20 07/04/20 History prednisone 5 mg PO DAILY@05/28/20 07/06/20 07/04/20 History prednisone 10 mg PO DAILY PRN 05/28/20 07/06/20 05/27/20 History tamsulosin 0.4 mg PO Q12H 05/28/20 07/06/20 07/04/20 History DME: Walker #1 ea 07/04/20 07/06/20 Unknown Rx Allergy Relief (fluticasone) 1 - 2 spray INTRANASAL DAILY PRN 07/06/20 07/06/20 Unknown History carvedilol 6.25 mg PO BID@0700,2200 07/06/20 07/06/20 07/04/20 History magnesium 100 mg PO DAILY@07 PRN 07/06/20 07/06/20 Unknown History upadacitinib [Rinvoq] 15 mg PO DAILY@07 07/06/20 07/06/20 07/04/20 History Allergies Allergy/AdvReac Type Severity Reaction Status Date / Time Penicillins Allergy Unknown Verified 07/06/20 12:50 PFSH Acute PFSH: Medical History BPH (benign prostatic hyperplasia) BPH loc w urin obs/LUTS Cervical arthritis CHF (congestive heart failure) Chronic radicular low back pain COPD (chronic obstructive pulmonary disease) DDD (degenerative disc disease) Encounter for long-term opiate analgesic use Erectile dysfunction Fatigue GERD (gastroesophageal reflux disease) H/O chronic active hepatitis Insomnia Rheumatoid arthritis Seropositive rheumatoid arthritis of multiple sites Trigger finger of left hand Surgical History H/O arthroscopic knee surgery left -2018 H/O hemorrhoidectomy H/O repair of rotator cuff Bilateral rt. 2010 left 2016 H/O submucous nasal surgery History of ear surgery History of facial surgery History of laminectomy Lumbar Status post colonoscopy (07/15/19) Repeat in 10 years Family History Father Hypertension Heart disease Diabetes Cancer colon cancer Mother Hypertension Stroke Sister Hypertension Liver disease Brother Hypertension Family/Other Heart disease AUNTS [employer]CLES Cancer PROSTATE-UNCLE Other Arthritis Denies family history of Anesthesia complication Bleeding disorder Social History Smoking and tobacco status: former smoker Quit status (tobacco): has quit using tobacco Year quit tobacco: 02/2019 Second hand smoke exposure: No Alcohol intake: former Year of sobriety/quit date alcohol: 2017 Desire information about alcohol rehabilitation?: No Desire information about substance/drug rehabilitation?: No History of recent travel: No Sexually active: Yes Current gender identity: Male Vitals/I&O/Wt Last Vital Signs Temp 99.5 F 07/06/20 14:04 Pulse 86 07/06/20 16:04 Resp 19 H 07/06/20 16:04 BP 97/59 07/06/20 16:04 Pulse Ox 94 07/06/20 16:04 07/06/20 07/06/20 07/06/20 06:59 14:59 22:59 Intake Total 1150 / 1150 Balance 1150 / 1150 Weight last 48 hrs Weight 81.647 kg Physical Exam Const: COMMON NORMALS: no acute distress and patient oriented x3 GENERAL APPEARANCE: cooperative and comfortable HENMT: COMMON NORMALS: normocephalic HEAD & SCALP: normocephalic Eye: COMMON NORMALS: Equal, round and reactive pupils present and EOMs intact bilaterally GENERAL EYE: appearance normal, both eyes and all related structu res PUPIL: Yes Equal, round and reactive pupils present Neck/C-Spine: COMMON NORMALS: full ROM THYROID: Thyroid normal Resp: COMMON NORMALS: normal respiratory effort, No retractions, No use of accessory muscles and clear to auscultation bilaterally AUSCULTATION: clear to auscultation bilaterally Cardio: COMMON NORMALS: regular rate, regular rhythm, S1 normal heart sound present, S2 normal heart sound present, No gallops present (Cardio), No clicks present (Cardio) and No murmurs present (Cardio) RATE: regular rate RHYTHM: regular rhythm HEART SOUNDS: S1 normal heart sound present and S2 normal heart sound present GI: COMMON NORMALS: Normal to inspection, nondistended, normoactive bowel so unds present, Soft to palpation, non-tender and No hepatosplenomegaly present PALPATION: Yes Soft to palpation and Yes No hepatosplenomegaly present Extremity: COMMON NORMALS: normal to inspection, full ROM and no pedal edema Neuro: COMMON NORMALS: patient oriented x3, CN's II-XII intact bilaterally, moves all extremities and no focal motor deficits Psych: COMMON NORMALS: mental status grossly normal, Normal thought process present and cooperative THOUGHT PROCESS: Normal thought process present Data : 07/06/20 12:25 07/06/20 12:25 Micro: Microbiology 07/06/20 12:42 Blood Culture - Preliminary Blood SPECIMEN COLLECTED 05/20/21 12:25 Blood Culture - Preliminary Blood SPECIMEN COLLECTED A&P Assessment and plan (1) Atypical pneumonia: -Patient is immunocompromised, on chronic steroids, on Rinvoq -Received both doses of the Covid vaccine -Rapid Covid negative, influenza negative -Sepsis criteria met, temp 100.4, white blood cell count 13.6, blood pressures 8 0s over 70s, improving with fluids, D-dimer 3.91, creatinine 1.3 -CT angiogram of the chest shows peripheral groundglass opacities -2 days ago had a tick bite Plan: -Covid precautions, Covid PCR -Broad-spectrum antibiotic coverage vancomycin, Zosyn - doxycycline to cover for [place] spotted fever, Lyme, but no rashes -Sputum cultures, blood cultures, urine bacterial antigens, TB, fungal panel, tick panel, [place] spotted fever, MRSA nares, CRP, pro-Nikunj, Aspergillus, viral panel, HIV, hep C -Monitor respiratory status closely, monitor vitals closely -Currently on IV fluids, received Decadron in ER -Continue albuterol, Advair, will hold off on further steroids as patient is not actively wheezing -Oxygen protocol -Telemetry monitoring, serial EKGs, serial troponins, continue aspirin, statin -We will consider echocardiogram to evaluate for endocarditis based on further work-up -Full code -Lovenox for DVT prophylaxis Status: Acute (2) Sepsis: Status: Acute (3) LEIGH (acute kidney injury): Status: Acute (4) PVC (premature ventricular contraction): Status: Acute (5) CHF (congestive heart failure): Status: Acute Qualifiers: Heart failure type: systolic Heart failure chronicity: chronic Qualified Code(s): I50.22 - Chronic systolic (congestive) heart failure (6) Hypertension: Status: Acute Qualifiers: Hypertension type: essential hypertension Qualified Code(s): I10 - Essential (primary) hypertension (7) COPD (chronic obstructive pulmonary disease): Status: Acute Qualifiers: COPD type: chronic bronchitis Chronic bronchitis type: simple Qualified Code(s): J41.0 - Simple chronic bronchitis (8) GERD (gastroesophageal reflux disease): Status: Acute Qualifiers: Esophagitis presence: with esophagitis Qualified Code(s): K21.0 - Gastro-esophageal reflux disease with esophagitis Attestations Medical Necessity Statement*: Patient requires hospitalization, outpatient with observation, for atypical pneumonia, sepsis Coding Level of Care 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
[2020-07-06 16:59] LABS: C Reactive Protein 241.8 mg/L (0.0-4.9)
[2020-07-06 17:02] LABS: Procalcitonin 0.92 ng/mL (0-0.5)
--- NOTE | 2020-07-06 17:04 | PC.NURSE ---
1700-recd from lola per kathy. a/o cool clammasad. good wt. bearing to change from cart to bed.
[2020-07-06] MEDS: ascorbic acid 500 mg Tablet 1000 MG PO (18:28)
[2020-07-06] MEDS: sodium chloride 0.9% 1,000 ML 75 ML IV (18:28)
[2020-07-06] MEDS: enoxaparin 40 mg/0.4 mL Syringe SUBCUT (18:28)
[2020-07-06] MEDS: famotidine 20 mg Tablet PO (18:31)
[2020-07-06 18:58] LABS: Thyroid Stimulating Hormone 0.66 uIU/mL (0.27-4.20)
--- NOTE | 2020-07-06 19:00 | PC.NURSE ---
Bedside report received from Sandy WOOD. Patient is alert and oriented. Skin is clammy, but complains of being cold. Heat turned up in his room and extra blankets provided. Axillary temp 97.2. Nurse will continue to monitor.
[2020-07-06] MEDS: vancomycin 1,250 MG/250 ML PIGGYBACK 200 MG IV (19:44)
[2020-07-06] MEDS: tamsulosin 0.4 mg Capsule PO (19:44)
[2020-07-06 19:46] LABS: Hepatitis A Antibody IgM Non-Reactive (Nonreactive); Hepatitis B Core IgM Non-Reactive (Nonreactive); Hepatitis B Surface Antigen Non-Reactive (Nonreactive); Hepatitis C Virus Antibody Reactive (Nonreactive)
[2020-07-06 19:59] LABS: HIV 1 & 2 Antigen Non-Reactive (Non-Reactiv)
[2020-07-06 20:00] LABS: HIV 1 & 2 Antibody Non-Reactive (Non-Reactiv)
[2020-07-06] MEDS: oxyCODONE 5 mg IR Tab/Cap PO (20:01)
[2020-07-06] MEDS: doxycycline 100 MG in sodium chloride 0.9% (plus) 100 ML IV (21:11)
[2020-07-06] MEDS: atorvastatin 40 mg Tablet PO (21:20)
[2020-07-06 23:47] LABS: Add Urine Microscopic? YES; Bilirubin Urine Neg (Negative); Blood Urine 3+ (Negative); Glucose Urine UA Norm (Normal); Ketones Urine Negative (Negative); Leukocyte Esterase Urine Negative (Negative); Nitrate Urine Negative (Negative); Protein Urine 2+ (Negative); Urine Appearance Clear (CLEAR); Urine Color Dark Yellow (Yellow); Urobilinogen Urine Norm (Negative); pH Urine 5 (5-7)
[2020-07-06 23:48] LABS: Add Urine Culture? No; Amorphous Sediment Urine 1+ /hpf; Bacteria Urine TRACE /hpf; RBC Urine 15-25 /hpf (0-2); Squamous Epithelial Cell Urine 0-4 /hpf (0-5); WBC Urine 0-4 /hpf (0-5)
[2020-07-07] VITALS (13 sets, daily range): BP systolic 112–142; BP diastolic 71–90; PULSE 77–96; RESP 14–24; TEMP 36.5–36.8; O2SAT 93–98
--- NOTE | 2020-07-07 00:10 | PC.NURSE ---
Patient pulled out his IV while rolling over. Cath found on floor intact. New IV inserted in left hand. Patient tolerated well. Nurse to continue to monitor. Patient states he is starting to feel better.
[2020-07-07 03:55] LABS: Basophils % 0.1 %; Eosinophils % 0.1 %; Hematocrit 41.3 % (42.0-52.0); Lymphocytes # 0.7 10^3/uL (0.8-4.8); Lymphocytes % 9.8 %; Mean Corpuscular HGB Conc 33.9 g/dL (30.0-36.0); Mean Corpuscular Hemoglobin 30.5 pg (28.0-34.0); Mean Platelet Volume 10.5 fL (7.4-10.4); Monocytes # 0.3 10^3/uL (0.2-0.9); Monocytes % 4.8 %; Neutrophils # 5.85 10^3/uL (1.8-7.7); Neutrophils % 84.8 %; Nucleated Red Blood Cells % 0 %; Platelet Count 221 10^3/cmm (130-400); Red Blood Count 4.59 10^6/uL (4.1-5.3); White Blood Count 6.9 10^3/uL (4.0-10.0)
[2020-07-07 04:09] LABS: Fibrinogen 826 mg/dL (174-498)
[2020-07-07 04:19] LABS: Lactate (Lactic Acid level) 1.1 mmol/L (0.5-2.2)
[2020-07-07 04:29] LABS: NT Pro B Type Natriuretic Pept 863 pg/mL (0-125); Procalcitonin 0.62 ng/mL (0-0.5)
[2020-07-07 04:40] LABS: Alanine Aminotransferase 12 U/L (0-41); Albumin Level 3.5 g/dL (3.5-5.2); Alkaline Phosphatase 44 IU/L (40-130); Anion Gap 17.3 (5-19); Aspartate Amino Transferase 14 U/L (0-40); Blood Urea Nitrogen 35 mg/dL (8-23); C Reactive Protein 188.7 mg/L (0.0-4.9); Calcium 8.5 mg/dL (8.5-10.5); Carbon Dioxide 25 mmol/L (22-29); Chloride 100 mmol/L (98-107); Globulin 3.5 g/dL (1.3-4.6); Glomerular Filtration Rate 61.3 mL/min (90-130); Glucose 143 mg/dL (65-115); Osmolality Calculated 298 mOsm/kg (285-295); Phosphorus 2.8 mg/dL (2.5-4.5); Potassium 3.3 mmol/L (3.5-5.1); Sodium 139 mmol/L (136-145); Total Bilirubin 0.3 mg/dL (0.15-1.2)
[2020-07-07] MEDS: sodium chloride 0.9% 1,000 ML 75 ML IV ×2 (05:56→21:27)
[2020-07-07] MEDS: oxyCODONE 5 mg IR Tab/Cap PO ×3 (05:57→21:05)
[2020-07-07] MEDS: aspirin 81 mg EC Tablet PO (06:07)
[2020-07-07] MEDS: potassium chloride ER 10 mEq Tablet PO (06:07)
[2020-07-07] MEDS: ascorbic acid 500 mg Tablet 1000 MG PO ×2 (09:07→18:12)
[2020-07-07] MEDS: famotidine 20 mg Tablet PO ×2 (09:07→18:12)
[2020-07-07] MEDS: cholecalciferol (vitamin D3) 1,000 unit Tablet 1000 UNIT PO (09:07)
[2020-07-07] MEDS: zinc gluconate 50 mg Tablet PO (09:07)
[2020-07-07] MEDS: tamsulosin 0.4 mg Capsule PO ×2 (09:08→21:05)
[2020-07-07] MEDS: doxycycline 100 MG in sodium chloride 0.9% (plus) 100 ML IV ×2 (09:09→21:07)
--- NOTE | 2020-07-07 12:17 | P.PN_ITS ---
Subjective Subjective: Interval history: Patient was seen this morning, he tells me that he is feeling a lot better, but continues to have intermittent fevers and chills, no fevers documented here, no nausea, no vomiting, no shortness of breath Vitals/I&O/Wt Last Vital Signs Temp 98.2 F 07/07/20 07:45 Pulse 92 07/07/20 08:51 Resp 22 H 07/07/20 08:40 BP 116/71 07/07/20 07:45 Pulse Ox 96 07/07/20 08:40 07/06/20 07/07/20 07/07/20 22:59 06:59 14:59 Intake Total 2600 / 2600 960 / 3560 320 / 320 Output Total 250 / 250 Balance 2600 / 2600 710 / 3310 320 / 320 Weight last 48 hrs Weight 81.647 kg Physical Exam Const: COMMON NORMALS: no acute distress and patient oriented x3 Resp: COMMON NORMALS: normal respiratory effort, No retractions, No use of accessory muscles and clear to auscultation bilaterally AUSCULTATION: clear to auscultation bilaterally Cardio: COMMON NORMALS: regular rate, regular rhythm, S1 normal heart sound present and S2 normal heart sound present RATE: regular rate RHYTHM: regular rhythm HEART SOUNDS: S1 normal heart sound present and S2 normal heart sound present GI: COMMON NORMALS: Normal to inspection, nondistended, normoactive bowel sounds present, Soft to palpation and non-tender PALPATION: Yes Soft to palpation Extremity: COMMON NORMALS: no pedal edema Neuro: COMMON NORMALS: patient oriented x3 Psych: COMMON NORMALS: mental status grossly normal Data : 07/07/20 03:00 07/07/20 03:00 Micro: Microbiology 07/06/20 Unknown Bacterial Antigens - Final Urine,Voided 07/06/20 19:50 MRSA Culture - Final Nose 07/06/20 21:27 Gram Stain - Final Sputum - Expectorated Sputum 07/06/20 12:42 Blood Culture - Preliminary Blood SPECIMEN COLLECTED 07/06/20 12:25 Blood Culture - Preliminary Blood SPECIMEN COLLECTED A&P Assessment and plan (1) Atypical pneumonia: -Patient is immunocompromised, on chronic steroids, on Rinvoq -Received both doses of the Covid vaccine -Rapid Covid negative, influenza negative -Sepsis criteria met, temp 100.4, white blood cell count 13.6, blood pressures 80s over 70s, improving with fluids, D-dimer 3.91, creatinine 1.3 -CT angiogram of the chest shows peripheral groundglass opacities -2 days ago had a tick bite Plan: -Covid precautions, Covid PCR -Broad-spectrum antibiotic coverage vancomycin, Zosyn - doxycycline to cover for [place] spotted fever, Lyme, but no rashes -Sputum cultures, blood cultures, urine bacterial antigens, TB, fungal panel, tick panel, [place] spotted fever, MRSA nares, CRP, pro-Nikunj, Aspergillus, viral panel, HIV, hep C -Monitor respiratory status closely, monitor vitals closely -Continue IV fluids, hold off on Decadron -Continue albuterol, Advair, will hold off on further steroids as patient is not actively wheezing -Oxygen protocol -Telemetry monitorin continue aspirin, statin -We will consider echocardiogram to evaluate for endocarditis based on further work-up -Full code -Lovenox for DVT prophylaxis Status: Acute (2) Sepsis: Status: Acute (3) LEIGH (acute kidney injury): Status: Acute (4) PVC (premature ventricular contraction): Status: Acute (5) CHF (congestive heart failure): Status: Acute Qualifiers: Heart failure type: systolic Heart failure chronicity: chronic Qualified Code(s): I50.22 - Chronic systolic (congestive) heart failure (6) Hypertension: Status: Acute Qualifiers: Hypertension type: essential hypertension Qualified Code(s): I10 - Essential (primary) hypertension (7) COPD (chronic obstructive pulmonary disease): Status: Acute Qualifiers: COPD type: chronic bronchitis Chronic bronchitis type: simple Qualified Code(s): J41.0 - Simple chronic bronchitis (8) GERD (gastroesophageal reflux disease): Status: Acute Qualifiers: Esophagitis presence: with esophagitis Qualified Code(s): K21.0 - Gastro-esophageal reflux disease with esophagitis Attestations Medical Necessity Statement*: Patient requires hospitalization, inpatient, and the 2 midnights for atypical pneumonia, immunocompromise patient, persistent chills Coding Level of Care Code 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
[2020-07-07] MEDS: vancomycin 1,250 MG/250 ML PIGGYBACK 200 MG IV (12:48)
--- NOTE | 2020-07-07 17:29 | PC.RESP ---
Pulmonary Rehab information sent to patient.
[2020-07-07] MEDS: enoxaparin 40 mg/0.4 mL Syringe SUBCUT (18:12)
[2020-07-07 19:59] LABS: Coronavirus Test Green County Not Detected
[2020-07-07] MEDS: atorvastatin 40 mg Tablet PO (21:05)
[2020-07-08] VITALS (19 sets, daily range): BP systolic 110–137; BP diastolic 67–86; PULSE 74–160; RESP 16–32; TEMP 36.4–38.7; O2SAT 92–98
[2020-07-08] MEDS: oxyCODONE 5 mg IR Tab/Cap PO ×3 (02:53→14:22)
[2020-07-08] MEDS: benzonatate 100 mg Capsule PO (05:03)
--- NOTE | 2020-07-08 05:44 | PC.NURSE ---
At ~0330 patient requesting something for a persistent cough. Informed Dr Downs and received telephone order for Tessalon Jania 100mg PO Q8H PRN for cough. RVBO
--- NOTE | 2020-07-08 06:04 | PC.NURSE ---
Per [facility] by Dr. Downs isolation precautions can be stopped. COVID PCR is negative.
[2020-07-08] MEDS: vancomycin 1,250 MG/250 ML PIGGYBACK 200 MG IV (06:13)
[2020-07-08] MEDS: aspirin 81 mg EC Tablet PO (06:14)
[2020-07-08] MEDS: potassium chloride ER 10 mEq Tablet PO (06:14)
[2020-07-08 07:12] LABS: Basophils % 0.2 %; Hematocrit 36.6 % (42.0-52.0); Hemoglobin 12.4 g/dL (11.7-16.6); Lymphocytes # 0.9 10^3/uL (0.8-4.8); Mean Corpuscular HGB Conc 33.9 g/dL (30.0-36.0); Mean Corpuscular Hemoglobin 30.2 pg (28.0-34.0); Mean Corpuscular Volume 89.3 fL (80-94); Mean Platelet Volume 10.6 fL (7.4-10.4); Monocytes # 1.3 10^3/uL (0.2-0.9); Monocytes % 8.5 %; Neutrophils # 13.22 10^3/uL (1.8-7.7); Neutrophils % 84.8 %; Nucleated Red Blood Cells % 0 %; Platelet Count 241 10^3/cmm (130-400); Red Cell Distribution Width 13.1 % (12.1-15.1); White Blood Count 15.6 10^3/uL (4.0-10.0)
[2020-07-08 07:35] LABS: Fibrinogen 602 mg/dL (174-498)
[2020-07-08 07:46] LABS: Lactate (Lactic Acid level) 1.4 mmol/L (0.5-2.2)
[2020-07-08 07:51] LABS: NT Pro B Type Natriuretic Pept 309 pg/mL (0-125); Procalcitonin 0.33 ng/mL (0-0.5)
[2020-07-08 08:01] LABS: Alanine Aminotransferase 20 U/L (0-41); Albumin Level 3.5 g/dL (3.5-5.2); Alkaline Phosphatase 47 IU/L (40-130); Anion Gap 16.6 (5-19); Aspartate Amino Transferase 19 U/L (0-40); Blood Urea Nitrogen 31 mg/dL (8-23); C Reactive Protein 85.4 mg/L (0.0-4.9); Calcium 8.7 mg/dL (8.5-10.5); Carbon Dioxide 22 mmol/L (22-29); Chloride 106 mmol/L (98-107); Creatinine Clr Calc Pharmacy 90.3726; Globulin 2.7 g/dL (1.3-4.6); Glomerular Filtration Rate 85.5 mL/min (90-130); Glucose 100 mg/dL (65-115); Magnesium 1.8 mg/dL (1.7-2.3); Osmolality Calculated 299 mOsm/kg (285-295); Phosphorus 2.8 mg/dL (2.5-4.5); Potassium 3.6 mmol/L (3.5-5.1); Sodium 141 mmol/L (136-145); Total Bilirubin 0.3 mg/dL (0.15-1.2); Total Protein 6.2 g/dL (6.6-8.7)
[2020-07-08 08:10] LABS: Vancomycin Trough 32.2 ug/mL (10-15)
[2020-07-08] MEDS: ketorolac 10 mg Tablet PO (08:12)
[2020-07-08] MEDS: ascorbic acid 500 mg Tablet 1000 MG PO (08:50)
[2020-07-08] MEDS: cholecalciferol (vitamin D3) 1,000 unit Tablet 1000 UNIT PO (08:50)
[2020-07-08] MEDS: famotidine 20 mg Tablet PO (08:51)
[2020-07-08] MEDS: tamsulosin 0.4 mg Capsule PO ×2 (08:51→20:08)
[2020-07-08] MEDS: zinc gluconate 50 mg Tablet PO (08:51)
--- NOTE | 2020-07-08 10:09 | CTR_ITS ---
PROCEDURE INFORMATION: Exam: CT Left Lower Extremity Without Contrast, Knee Exam date and time: 07/08/2020 10:45 AM Age: 64 years old Clinical indication: Pain; Prior surgery; Surgery date: 6+ months; Surgery type: Left knee; Additional info: Left knee pain, fevers, septic joint? TECHNIQUE: Imaging protocol: CT of the Left lower extremity without contrast was performed. Exam focused on the knee. Radiation optimization: All CT scans at this facility use at least one of these dose optimization techniques: automated exposure control; mA and/or kV adjustment per patient size (includes targeted exams where dose is matched to clinical indication); or iterative reconstruction. COMPARISON: CR XR knee LT 3V* [id number] 07/04/2020 2:59 PM RADIATION DOSE METRICS: Total DLP (mGy-cm): 239.06 FINDINGS: Bones/joints: Small septic versus non septic joint effusion. Mild lateral patellar subluxation and patellar tilt. Minimal primary tricompartmental osteoarthritis. Soft tissues: Normal. Vasculature: Mild calcified peripheral vascular disease. CT/CT knee LT wo con* [id number] IMPRESSION: 1. Small septic versus non septic joint effusion. 2. Mild lateral patellar subluxation and patellar tilt. 3. Minimal primary tricompartmental osteoarthritis. Radiation Dose CTDIVOL = (mGy): DLP = 239.06 (mGy-cm)
--- NOTE | 2020-07-08 10:10 | ECG_ITS ---
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 Measurements Intervals [place] Rate: 113 P: SC: QRS: 35 QRSD: 104 T: 19 QT: 326 QTc: 448 Interpretive Statements ATRIAL FIBRILLATION WITH RAPID VENTRICULAR RESPONSE Compared to ECG 07/06/2020 14:07:51 Sinus rhythm no longer present Ventricular premature complex(es) no longer present T-wave abnormality no longer present Electronically Signed On 07-08-2020 16:48:29 CDT by Paco Marcano M.D. [id number]
[2020-07-08] MEDS: doxycycline 100 MG in sodium chloride 0.9% (plus) 100 ML IV ×2 (10:16→20:08)
[2020-07-08] MEDS: sodium chloride 0.9% 1,000 ML 75 ML IV (10:19)
[2020-07-08 11:01] LABS: Troponin(5th) Baseline 19 ng/L (0-15)
--- NOTE | 2020-07-08 11:23 | USCV_ITS ---
Herrera Quintana Age: 64 Gender: M : 1955 Exam Date: 07/08/2020 16:08 Ordering Phys: Nitesh Yu MD Technologist: Nubia Mendoza [place]am Location[place] [facility] [place] Indication: Atrial fibrillation BP: 137 / 68 HR: 94 Rhythm: Sinus Technical Quality: Adequate MEASUREMENTS (Male / Female) Normal Values 2D ECHO LV Diastolic Diameter PLAX 5.1 cm 4.2 - 5.9 / 3.9 - 5.3 cm LV Systolic Diameter PLAX 4.7 cm LV Chamber Size 5.5 cm IVS Diastolic Thickness 1.0 cm 0.6 - 1.0 / 0.6 - 0.9 cm IVS Systolic Thickness 1.2 cm LVPW Diastolic Thickness 1.0 cm 0.6 - 1.0 / 0.6 - 0.9 cm LVPW Systolic Thickness 1.2 cm RV Chamber Size 3.7 cm LVOT Diameter 2.1 cm LV Ejection Fraction 2D Teich 18.6 % LV Ejection Fraction MOD 2C 28.7 % LV Ejection Fraction 2C AL 26.7 % LA Diameter 3.7 cm LA Width 2.4 cm LA Height 4.3 cm RA Width 3.4 cm RA Height 4.7 cm Aorta at Sinotubular Diameter 2.9 cm M-MODE LV Diastolic Diameter MM 5.6 cm 4.2 - 5.9 / 3.9 - 5.3 cm LV Systolic Diameter MM 4.7 cm LV Ejection Fraction MM Teich 32.9 % IVS Diastolic Thickness MM 1.2 cm 0.6 - 1.0 / 0.6 - 0.9 cm IVS Systolic Thickness MM 1.1 cm LVPW Diastolic Thickness MM 1.6 cm 0.6 - 1.0 / 0.6 - 0.9 cm LVPW Systolic Thickness MM 2.1 cm RV Diastolic Diameter MM 1.7 cm Aortic Annulus Diameter 3.4 cm LA Ao Ratio MM 1.2 MV E Point Septal Separation 1.6 cm DOPPLER AV Peak Velocity 143.0 cm/s LVOT Peak Velocity 92.0 cm/s AV Area Cont Eq vti 2.3 cm squared AV Area Cont Eq pk 2.2 cm squared MV Area PHT 4.0 cm squared Mitral E to A Ratio 1.4 MV E' Velocity 54.0 cm/s Mitral E to MV E' Ratio 11.6 Mitral E to LV E' Lateral Ratio 10.2 Mitral E to LV E' Septal Ratio 13.4 TR Peak Velocity 247.0 cm/s TR Peak Gradient 24.4 mmHg TV Peak E Velocity 50.0 cm/s Right Atrial Pressure 8.0 mmHg Pulmonary Artery Systolic Pressu 32.4 mmHg PV Peak Velocity 58.0 cm/s RV Acceleration Time 0.1 s RV Ejection Time 0.3 s RV AcT/ET 0.3 FINDINGS Left Ventricle Normal left ventricular size. LV systolic function is moderately reduced with EF of 35-40%. Mild to moderate global hypokinesis is seen. Diastolic function is normal Right Ventricle The right ventricle is normal in size. Mildly reduced function Right Atrium The right atrium is normal in size. Left Atrium The left atrium is normal in size. Mitral Valve Structurally normal mitral valve without significant stenosis or prolapse. There is mild mitral regurgitation. Aortic Valve Structurally normal aortic valve without significant sclerosis or stenosis. There is no aortic regurgitation. Tricuspid Valve Structurally normal tricuspid valve without significant stenosis. Trace regurgitation. Insufficient TR jet to calculate RVSP Pulmonic Valve Structurally normal pulmonic valve without significant stenosis. There is no pulmonic regurgitation. Pericardium Normal pericardium without effusion. Aorta Normal ascending aorta dimension. CONCLUSIONS LV systolic function is moderately reduced with EF of 35-40% Mildly reduced right ventricular function Mild mitral regurgitation Compared to prior echocardiogram from 06/02/2019, no significant changes are noted Paco Marcano MD (Electronically Signed) Final Date: 09 Jul 2020 13:36 S
[2020-07-08] MEDS: enoxaparin 80 mg/0.8 mL Syringe SUBCUT ×2 (12:04→22:34)
[2020-07-08] MEDS: metoprolol tartrate 25 mg Tablet PO (12:04)
--- NOTE | 2020-07-08 12:10 | ECG_ITS ---
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 Measurements Intervals [place] Rate: 125 P: IN: QRS: 52 QRSD: 102 T: 54 QT: 301 QTc: 434 Interpretive Statements ATRIAL FIBRILLATION WITH RAPID VENTRICULAR RESPONSE NONSPECIFIC T-WAVE ABNORMALITY Compared to ECG 07/08/2020 11:15:54 T-wave abnormality now present Electronically Signed On 07-08-2020 16:49:51 CDT by Paco Marcano M.D. [id number]
[2020-07-08 12:25] LABS: Erythrocyte Sedimentation Rate 84 mm/hr (0-10)
--- NOTE | 2020-07-08 12:32 | PM.PN ---
Subjective Subjective: Interval history: Patient was seen this morning, he does report intermittent palpitations during the night, he had had an episode of palpitation early this morning, telemetry shows A. jazmine with RVR, he does tell me that he has a history of chest palpitations, and a leaky heart valve, no chest pain, no shortness of breath, no history of MIs, no history of heart failure, patient does tell me that he did sleep well last night, no fevers, no chills, no nausea, no vomiting, his left knee is bothering him, he did fall a few weeks ago, and he had left knee pain, and his left knee was injected with steroids Vitals/I&O/Wt Last Vital Signs Temp 97.6 F 07/08/20 07:26 Pulse 93 07/08/20 08:16 Resp 19 H 07/08/20 08:50 BP 117/84 07/08/20 07:26 Pulse Ox 98 07/08/20 08:14 07/07/20 07/08/20 07/08/20 22:59 06:59 14:59 Intake Total 1560 / 2470 200 / 2670 1325 / 1325 Output Total 400 / 400 275 / 675 Balance 1159 / 2069 -1994 1325 / 1325 Physical Exam Const: COMMON NORMALS: no acute distress and patient oriented x3 Resp: COMMON NORMALS: normal respiratory effort, No retractions, No use of accessory muscles and clear to auscultation bilaterally AUSCULTATION: clear to auscultation bilaterally Cardio: COMMON NORMALS: S1 normal heart sound present and S2 normal heart sound present RATE: tachycardic RHYTHM: abnormal rhythm HEART SOUNDS: S1 normal heart sound present and S2 normal heart sound present GI: COMMON NORMALS: Normal to inspection, nondistended, normoactive bowel sounds present, Soft to palpation, non-tender and No hepatosplenomegaly present PALPATION: Yes Soft to palpation and Yes No hepatosplenomegaly present Extremity: COMMON NORMALS: no pedal edema NARRATIVE EXTREMITY EXAM: Left knee, slightly swollen, slightly erythematous, slightly warm Neuro: COMMON NORMALS: patient oriented x3 Psych: COMMON NORMALS: mental status grossly normal Data : 07/08/20 06:58 07/08/20 06:58 Micro: Microbiology 07/06/20 21:27 Gram Stain - Final Sputum - Expectorated Sputum Sputum Culture - Preliminary 07/06/20 12:42 Blood Culture - Preliminary Blood NEGATIVE TO DATE 07/06/20 12:25 Blood Culture - Preliminary Blood NEGATIVE TO DATE 07/06/20 Unknown Bacterial Antigens - Final Urine,Voided 07/06/20 19:50 MRSA Culture - Final Nose A&P Assessment and plan (1) Septic joint of left knee joint: -Left knee is slightly swollen, slightly erythematous, slightly warm -Did fall 2 weeks ago, had left knee pain, had a left knee steroid injection -Did have complaints of fevers, chills, fatigue, malaise on admission -Is immunocompromised, on rinvoq -CT scan does show small joint effusion nonseptic versus septic -Has been on broad-spectrum antibiotic therapy since admission -CRP down to 85.4, ESR 82, blood cultures so far unremarkable -I have consulted orthopedic service, Dr. Edwards to see to decide if joint needs to be tapped -Continue Zyvox, Zosyn -Monitor clinically Status: Acute (2) Atypical pneumonia: -Patient is immunocompromised, on chronic steroids, on Rinvoq -Received both doses of the Covid vaccine -Rapid Covid negative, influenza negative -Sepsis criteria met on admission, temp 100.4, white blood cell count 13.6, blood pressures 80s over 70s, improving with fluids, D-dimer 3.91, creatinine 1.3 -CT angiogram of the chest shows peripheral groundglass opacities, Covid test negative, rapid flu negative -2 days ago had a tick bite Plan: -Broad-spectrum antibiotic coverage, vancomycin to be stopped given Vanco trough of 32, switch to Zyvox, continue Zosyn - doxycycline to cover for Murray spotted fever, Lyme, but no rashes -Sputum cultures, blood cultures, urine bacterial antigens, TB, fungal panel, tick panel, Murray spotted fever, MRSA nares, CRP, pro-Nikunj, Aspergillus, viral panel, HIV, hep C -Monitor respiratory status closely, monitor vitals closely -Stop IV fluids, hold off on Decadron -Continue albuterol, Advair, will hold off on further steroids as patient is not actively wheezing -Oxygen protocol -Telemetry monitorin continue aspirin, statin -Full code -Lovenox for DVT prophylaxis Status: Acute (3) New onset atrial fibrillation: -Has a history of chest palpitations the past, leaky heart valve -Start metoprolol 25 mg twice daily -TSH -Mag within normal limits -Therapeutic Lovenox -Serial troponins, serial EKGs -Cardiac echo Status: Acute (4) Sepsis: Status: Acute (5) LEIGH (acute kidney injury): Status: Acute (6) PVC (premature ventricular contraction): Status: Acute (7) CHF (congestive heart failure): Status: Acute Qualifiers: Heart failure type: systolic Heart failure chronicity: chronic Qualified Code(s): I50.22 - Chronic systolic (congestive) heart failure (8) Hypertension: Status: Acute Qualifiers: Hypertension type: essential hypertension Qualified Code(s): I10 - Essential (primary) hypertension (9) COPD (chronic obstructive pulmonary disease): Status: Acute Qualifiers: COPD type: chronic bronchitis Chronic bronchitis type: simple Qualified Code(s): J41.0 - Simple chronic bronchitis (10) GERD (gastroesophageal reflux disease): Status: Acute Qualifiers: Esophagitis presence: with esophagitis Qualified Code(s): K21.0 - Gastro-esophageal reflux disease with esophagitis Additional A&P Information Plan for today, consult orthopedic service, stop vancomycin, switch to Zyvox, monitor clinically, get heart rates under control with atrial fibrillation Attestations Medical Necessity Statement*: Patient requires hospitalization for A. fib, atypical pneumonia, possible septic joint Coding Level of Care Code Acute Breaker Layer for g Fwd Diagnoses Septic joint of left knee joint M00.9 Atypical pneumonia J18.9 New onset atrial fibrillation I48.91 Sepsis A41.9 LEIGH (acute kidney injury) N17.9 PVC (premature ventricular contraction) I49.3 CHF (congestive heart failure) I50.22 Heart failure type: systolic Heart failure chronicity: chronic Hypertension I10 Hypertension type: essential hypertension COPD (chronic obstructive pulmonary disease) J41.0 COPD type: chronic bronchitis Chronic bronchitis type: simple GERD (gastroesophageal reflux disease) K21.0 Esophagitis presence: with esophagitis
--- NOTE | 2020-07-08 13:03 | PC.NURSE ---
Call placed to Dr. Yu regarding patient having intermittant atrial fibrillation. Orders received for EKG and serial troponins. Patient was in normal sinus rhythm at time of phone call.
[2020-07-08 13:28] LABS: Troponin 5 2HR 16.11 ng/L (0-15)
[2020-07-08 13:38] LABS: Troponin 5 2HR Delta -2.89 ABS# (0-10)
[2020-07-08] MEDS: linezolid premix 600 MG/300 ML PREMIX 300 MG IV (14:03)
[2020-07-08] MEDS: metoprolol tartrate 25 mg Tablet 50 MG PO (15:48)
[2020-07-08] MEDS: morphine 4 mg/mL SDV 1 mL 3 MG IVP (15:48)
--- NOTE | 2020-07-08 16:10 | ECG_ITS ---
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 Measurements Intervals [place] Rate: 91 P: 57 MO: 145 QRS: 49 QRSD: 101 T: 66 QT: 340 QTc: 419 Interpretive Statements SINUS RHYTHM WITH OCCASIONAL VENTRICULAR PREMATURE COMPLEXES WITH OCCASIONAL SUPRAVENTRICULAR PREMATURE COMPLEXES Compared to ECG 07/08/2020 13:05:19 Ventricular premature complex(es) now present Atrial fibrillation no longer present T-wave abnormality no longer present Electronically Signed On 07-08-2020 16:49:40 CDT by Paco Marcano M.D. [id number]
[2020-07-08 16:41] LABS: Troponin 5 6HR 18.41 ng/L (0-15)
[2020-07-08 16:42] LABS: Troponin 5 6HR Delta -0.59 ng/L (0-12)
[2020-07-08] MEDS: acetaminophen 1,000 MG/100 ML PIGGYBACK 400 MG IV (18:28)
[2020-07-08] MEDS: HYDROmorphone 1 mg/mL INJ 1 mL IVP ×2 (18:45→22:32)
[2020-07-08] MEDS: atorvastatin 40 mg Tablet PO (20:08)
--- NOTE | 2020-07-08 21:21 | PC.NURSE ---
Pt states that his left knee is starting to ache again and was requesting pain medication. Ice packs were placed on the left knee and patient notified to alert this nurse if the patient's pain continues to be unbearable.
[2020-07-08] MEDS: ALPRAZolam 0.25 mg Tablet PO (23:28)
[2020-07-09] VITALS (15 sets, daily range): BP systolic 99–142; BP diastolic 49–91; PULSE 70–109; RESP 16–30; TEMP 36.6–39.1; O2SAT 93–96
--- NOTE | 2020-07-09 00:54 | PC.NURSE ---
Spoke with Dr. Fuchs regarding this patient's complaint of knee pain as well as him being febrile. Received orders for IV tylenol 1gram.
[2020-07-09] MEDS: acetaminophen 1,000 MG/100 ML PIGGYBACK 400 MG IV (01:00)
[2020-07-09] MEDS: linezolid premix 600 MG/300 ML PREMIX 300 MG IV ×2 (01:07→13:18)
[2020-07-09 01:57] LABS: Basophils % 0.1 %; Eosinophils % 0.1 %; Hematocrit 33.4 % (42.0-52.0); Hemoglobin 11.7 g/dL (11.7-16.6); Lymphocytes # 0.8 10^3/uL (0.8-4.8); Lymphocytes % 9.3 %; Mean Corpuscular Hemoglobin 30.5 pg (28.0-34.0); Mean Corpuscular Volume 87.2 fL (80-94); Mean Platelet Volume 10.6 fL (7.4-10.4); Monocytes # 1.4 10^3/uL (0.2-0.9); Monocytes % 15.6 %; Neutrophils # 6.65 10^3/uL (1.8-7.7); Neutrophils % 74.2 %; Nucleated Red Blood Cells % 0 %; Platelet Count 231 10^3/cmm (130-400); Red Blood Count 3.83 10^6/uL (4.1-5.3); Red Cell Distribution Width 13.3 % (12.1-15.1)
[2020-07-09] MEDS: HYDROmorphone 1 mg/mL INJ 1 mL IVP (02:05)
[2020-07-09 02:13] LABS: Lactate (Lactic Acid level) 0.8 mmol/L (0.5-2.2)
[2020-07-09 02:14] LABS: Alanine Aminotransferase 19 U/L (0-41); Albumin Level 3.2 g/dL (3.5-5.2); Alkaline Phosphatase 41 IU/L (40-130); Anion Gap 15.5 (5-19); Aspartate Amino Transferase 18 U/L (0-40); Blood Urea Nitrogen 22 mg/dL (8-23); C Reactive Protein 77.1 mg/L (0.0-4.9); Calcium 8.4 mg/dL (8.5-10.5); Carbon Dioxide 23 mmol/L (22-29); Chloride 102 mmol/L (98-107); Creatinine Clr Calc Pharmacy 90.3726; Globulin 3.1 g/dL (1.3-4.6); Glomerular Filtration Rate 85.5 mL/min (90-130); Glucose 107 mg/dL (65-115); Magnesium 1.3 mg/dL (1.7-2.3); Osmolality Calculated 288 mOsm/kg (285-295); Phosphorus 2.5 mg/dL (2.5-4.5); Potassium 3.5 mmol/L (3.5-5.1); Sodium 137 mmol/L (136-145); Total Bilirubin 0.4 mg/dL (0.15-1.2); Total Protein 6.3 g/dL (6.6-8.7)
[2020-07-09 02:16] LABS: INR 1.15 (0.8-1.2); Vancomycin Random 9.8 ug/mL (20.0-40.0)
[2020-07-09 02:17] LABS: Fibrinogen 641 mg/dL (174-498)
[2020-07-09 02:19] LABS: Procalcitonin 0.27 ng/mL (0-0.5)
[2020-07-09] MEDS: metoprolol tartrate 25 mg Tablet 50 MG PO ×2 (02:33→15:26)
[2020-07-09] MEDS: aspirin 81 mg EC Tablet PO (06:04)
[2020-07-09] MEDS: potassium chloride ER 10 mEq Tablet PO (06:04)
[2020-07-09] MEDS: ALPRAZolam 0.25 mg Tablet PO ×2 (08:10→21:00)
[2020-07-09] MEDS: cholecalciferol (vitamin D3) 1,000 unit Tablet 1000 UNIT PO (08:55)
[2020-07-09] MEDS: ascorbic acid 500 mg Tablet 1000 MG PO ×2 (08:55→17:04)
[2020-07-09] MEDS: ibuprofen 800 mg tablet PO ×3 (08:55→22:25)
[2020-07-09] MEDS: tamsulosin 0.4 mg Capsule PO ×2 (08:56→21:01)
[2020-07-09] MEDS: zinc gluconate 50 mg Tablet PO (08:56)
[2020-07-09] MEDS: famotidine 20 mg Tablet PO ×2 (08:56→17:05)
[2020-07-09] MEDS: doxycycline 100 MG in sodium chloride 0.9% (plus) 100 ML IV ×2 (09:35→21:01)
--- NOTE | 2020-07-09 09:35 | PM.CONSULT ---
Providers/Reason For Consult Consulting Physican/Specialty*: Uziel Edwards MD; orthopedic surgery Reason for Consult*: Septic left knee Attending Physician: Nitesh Yu MD Primary Care Provider: Debbie Cardoso MD History of Present Illness History of Present Illness Herrera Quintana is a 64 year old male who describes pain in his left to the hospital on 520On 07/06/2020 with a history of fevers chills and malaise. He was placed on broad-spectrum antibiotics with vancomycin and Zosyn and has been treated with a diagnosis of atypical pneumonia. He describes continued left knee pain and septic left knee has been entered obtained. The patient describes falling on his knee several weeks ago with increasing pain. He describes more of a twisting injury. He denies any swelling catching or locking Meds/Allergies Home Medications and Allergies Home Medications Medication Instructions Recorded Confirmed Last Taken Type sildenafil 50 mg tablet 50 mg PO PRN PRN tab 03/17/19 07/06/20 07/11/19 History albuterol sulfate 90 mcg/actuation 1 - 2 puff INHALATION Q6H PRN 30 05/20/19 07/06/20 05/27/20 Rx aerosol inhaler Days #18 gm budesonide-formoterol HFA 80 2 puff INHALATION Q12H 30 Days 05/20/19 07/06/20 05/27/20 Rx mcg-4.5 mcg/actuation aerosol #10.2 gm inhaler aspirin 81 mg tablet,delayed 81 mg PO DAILY@06/29/19 07/06/20 07/04/20 History release calcium carbonate 600 mg calcium 600 mg PO DAILY@12/22/19 07/06/20 07/04/20 History (1,500 mg) tablet oxycodone 5 mg tablet 5 mg PO .5 times a day PRN 30 Days 05/25/20 07/06/20 07/04/20 Rx #150 tab amitriptyline 25 mg PO BEDTIME@219905/28/20 07/06/20 07/04/20 History cyclobenzaprine 10 mg PO TID PRN 05/28/20 07/06/20 05/28/20 History esomeprazole magnesium 40 mg PO DAILY@05/28/20 07/06/20 07/04/20 History hydrochlorothiazide 25 mg PO DAILY@07 05/28/20 07/06/20 07/04/20 History losartan 25 mg PO DAILY@07 05/28/20 07/06/20 07/04/20 History potassium chloride 10 meq PO DAILY@07 05/28/20 07/06/20 07/04/20 History prednisone 5 mg PO DAILY@07 05/28/20 07/06/20 07/04/20 History prednisone 10 mg PO DAILY PRN 05/28/20 07/06/20 05/27/20 History tamsulosin 0.4 mg PO Q12H 05/28/20 07/06/20 07/04/20 History DME: Walker #1 ea 07/04/20 07/06/20 Unknown Rx Allergy Relief (fluticasone) 1 - 2 spray INTRANASAL DAILY PRN 07/06/20 07/06/20 Unknown History carvedilol 6.25 mg PO BID@0700,2200 07/06/20 07/06/20 07/04/20 History magnesium 100 mg PO DAILY@07 PRN 07/06/20 07/06/20 Unknown History upadacitinib [Rinvoq] 15 mg PO DAILY@07 07/06/20 07/06/20 07/04/20 History Allergies Allergy/AdvReac Type Severity Reaction Status Date / Time Penicillins Allergy Unknown Verified 07/06/20 12:50 Current Medications Current Medications Generic Name Dose Route Start Last Admin Trade Name Freq PRN Reason Stop Dose Admin Alprazolam 0.25 mg 07/08/20 23:21 07/09/20 08:10 Alprazolam 0.25 Mg Tablet PO 0.25 mg BID PRN Administration NICOTINE WITHDRAWAL Ascorbic Acid 1,000 mg 07/06/20 18:00 07/09/20 08:55 Ascorbic Acid 500 Mg Tablet PO 1,000 mg BID CIRILO Administration Aspirin 81 mg 07/07/20 07:00 07/09/20 06:04 Aspirin 81 Mg Ec Tablet PO 81 mg DAILY@07 CIRILO Administration Atorvastatin Calcium 40 mg 07/06/20 21:00 07/08/20 20:08 Atorvastatin 40 Mg Tablet PO 40 mg BEDTIME CIRILO Administration Benzonatate 100 mg 07/08/20 03:47 07/08/20 05:03 Benzonatate 100 Mg Capsule PO 100 mg Q8H PRN Administration COUGH Enoxaparin Sodium 80 mg 07/08/20 11:30 07/08/20 22:34 Enoxaparin 80 Mg/0.8 Ml Syringe SUBCUT 80 mg Q12H CIRILO Administration Famotidine 20 mg 07/06/20 18:00 07/09/20 08:56 Famotidine 20 Mg Tablet PO 20 mg BID CIRILO Administration Doxycycline Hyclate 100 mg/ 100 mls @ 100 mls/hr 07/06/20 21:00 07/08/20 21:30 Sodium Chloride IV Infused Q12H CIRILO Infusion Protocol Imipenem/Cilastatin Sodium 500 100 mls @ 200 mls/hr 07/06/20 18:00 07/09/20 07:13 mg/ Sodium Chloride IV Infused Q6H CIRILO Infusion Protocol Linezolid 600 mg in 300 mls @ 300 mls/hr 07/08/20 13:00 07/09/20 02:27 Zyvox Premix IV Infused Q12H CIRILO Infusion Protocol Diltiazem HCl 125 mg/ Sodium 125 mls @ 0 mls/hr 07/08/20 14:00 07/09/20 02:10 Chloride IV 5 mg/hr .Q0M CIRILO 5 mls/hr Titration Protocol Per Protocol Ibuprofen 800 mg 07/09/20 08:01 07/09/20 08:55 Ibuprofen 800 Mg Tablet PO 800 mg Q8H PRN Administration FEVER Metoprolol Tartrate 50 mg 07/08/20 15:25 07/09/20 02:33 Metoprolol Tartrate 25 Mg Tablet PO 50 mg Q12H CIRILO Administration Potassium Chloride 10 meq 07/07/20 07:00 07/09/20 06:04 Potassium Chloride Er 10 Meq Tablet PO 10 meq DAILY@07 CIRILO Administration Fluticasone/Salmeterol 1 puff 07/06/20 20:00 07/09/20 08:02 Fluticasone-Salmeterol 250-50 Diskus INHALATION 1 puff BID.RESPIRATORY CIRILO Administration Tamsulosin HCl 0.4 mg 07/06/20 20:00 07/09/20 08:56 Tamsulosin 0.4 Mg Capsule PO 0.4 mg Q12H CIRILO Administration Vitamin D 1,000 unit 07/07/20 09:00 07/09/20 08:55 Cholecalciferol (Vitamin D3) 1,000 Unit Tablet PO 1,000 unit DAILY CIRILO Administration Zinc Gluconate 50 mg 07/07/20 09:00 07/09/20 08:56 Zinc Gluconate 50 Mg Tablet PO 50 mg DAILY CIRILO Administration PFSH Acute PFSH: Medical History BPH (benign prostatic hyperplasia) BPH loc w urin obs/LUTS Cervical arthritis CHF (congestive heart failure) Chronic radicular low back pain COPD (chronic obstructive pulmonary disease) DDD (degenerative disc disease) Encounter for long-term opiate analgesic use Erectile dysfunction Fatigue GERD (gastroesophageal reflux disease) H/O chronic active hepatitis Insomnia Rheumatoid arthritis Seropositive rheumatoid arthritis of multiple sites Trigger finger of left hand Surgical History H/O arthroscopic knee surgery left -2018 H/O hemorrhoidectomy H/O repair of rotator cuff Bilateral rt. 2009 left 2016 H/O submucous nasal surgery History of ear surgery History of facial surgery History of laminectomy Lumbar Status post colonoscopy (07/15/19) Repeat in 10 years Family History Father Hypertension Heart disease Diabetes Cancer colon cancer Mother Hypertension Stroke Sister Hypertension Liver disease Brother Hypertension Family/Other Heart disease [place] [employer] [place] Cancer PROSTATE-UNCLE Other Arthritis Denies family history of Anesthesia complication Bleeding disorder Social History Smoking and tobacco status: former smoker Quit status (tobacco): has quit using tobacco Year quit tobacco: 02/2019 Second hand smoke exposure: No Alcohol intake: former Year of sobriety/quit date alcohol: 2016 Desire information about alcohol rehabilitation?: No Desire information about substance/drug rehabilitation?: No History of recent travel: No Sexually active: Yes Current gender identity: Male Vitals/I&O/Wt Last Vital Signs Temp 102.4 F H 07/09/20 07:48 Pulse 101 H 07/09/20 08:03 Resp 18 07/09/20 08:02 BP 132/91 07/09/20 07:48 Pulse Ox 95 07/09/20 08:02 07/08/20 07/09/20 07/09/20 22:59 06:59 14:59 Intake Total 1498.75 / 3633.75 528.0 / 4161.75 100 / 100 Output Total 1650 / 2600 875 / 3475 725 / 725 Balance -151.25 / 1033.75 -347.0 / 686.75 -625 / -625 Physical Exam Narrative: EXAM NARRATIVE: LEFT KNEE Patient skin is free of erythema and there is no warmth to the knee. He has no effusion. He has no tenderness. Motion is from full extension to 140 degrees without pain. His cruciate and collateral ligaments are stable. There are no distal neurovascular deficits I can appreciate Data Micro: Micro: Microbiology 07/06/20 21:27 Gram Stain - Final Sputum - Expector ated Sputum Sputum Culture - F inal Imaging^: Xray Ortho: My impression: 3 views consistent there are minimal degenerative changes and no acute destructive processes of bone. Other CT: Radiologist's impression: The radiologist comments on SERA the radiologist comments on a small septic versus nonseptic joint effusion and mild primary arthritis. A&P Assessment and plan (1) Left knee pain: The patient has no effusion and nearly pain-free full motion of the knee. There is nothing on clinical examination to suggest a septic process. Please feel free to reconsult if condition changes. Status: Acute Coding Level of Care Code Acute Criminal Justice Professor for Chg Fwd Diagnoses Left knee pain M25.562
--- NOTE | 2020-07-09 09:48 | USR_ITS ---
PROCEDURE INFORMATION: Exam: US Duplex Lower Extremity Veins, Bilateral Exam date and time: 07/09/2020 12:24 PM Age: 64 years old Clinical indication: Pain; Leg, lower; Bilateral; Additional info: Bilateral calf pain TECHNIQUE: Imaging protocol: Real-time duplex ultrasound of the extremities with 2-D jurado scale, color Doppler flow and spectral waveform analysis with image documentation. Complete exam focused on the bilateral lower extremity veins. COMPARISON: CT knee LT wo con* [id number] 07/08/2020 10:54 AM FINDINGS: Right deep veins: Unremarkable. The common femoral, femoral, proximal profunda femoral, popliteal, posterior tibial and peroneal veins are patent without thrombus. Normal Doppler waveforms. Normal compressibility and/or augmentation response. Right superficial veins: Saphenofemoral junction is patent without thrombus. Left deep veins: Unremarkable. The common femoral, femoral, proximal profunda femoral, popliteal, posterior tibial and peroneal veins are patent without thrombus. Normal Doppler waveforms. Normal compressibility and/or augmentation response. Left superficial veins: Saphenofemoral junction is patent without thrombus. Soft tissues: Unremarkable. US/[place] [id number] IMPRESSION: No sonographic evidence of deep vein thrombosis.
[2020-07-09 10:30] LABS: Creatine Phosphokinase 89 U/L (39-308)
[2020-07-09] MEDS: magnesium sulfate premix 4 GM/100 ML PREMIX IV (10:33)
--- NOTE | 2020-07-09 13:41 | CTR_ITS ---
PROCEDURE INFORMATION: Exam: CT Cervical Spine Without Contrast Exam date and time: 07/09/2020 2:08 PM Age: 64 years old Clinical indication: Other: Fever; Additional info: Fever, unkown source TECHNIQUE: Imaging protocol: Computed tomography images of the cervical spine without contrast. Axial, coronal and sagittal reformatted images were created and reviewed. Radiation optimization: All CT scans at this facility use at least one of these dose optimization techniques: automated exposure control; mA and/or kV adjustment per patient size (includes targeted exams where dose is matched to clinical indication); or iterative reconstruction. COMPARISON: No relevant prior studies available. RADIATION DOSE METRICS: Total DLP (mGy-cm): 616.76 FINDINGS: Bones/joints: Normal cervical lordosis. No CT evidence of acute fracture, dislocation or subluxation. Minimal anterolisthesis of C2 on C3 and C3 on C4. Alignment otherwise anatomic. Vertebral body heights maintained. Discs/Spinal canal/Neural foramina: Mild multilevel degenerative changes, characterized by disc space narrowing, osteophytosis and uncovertebral and facet joint hypertrophy. Mild multilevel spinal canal and neural foraminal narrowing. Soft tissues: Grossly unremarkable. CT/CT cervical spin wo con* [id number] IMPRESSION: Multilevel spondylosis and degenerative disc disease. Radiation Dose CTDIVOL = (mGy): DLP = 616.76 (mGy-cm)
--- NOTE | 2020-07-09 13:41 | CTR_ITS ---
PROCEDURE INFORMATION: Exam: CT Thoracic Spine Without Contrast Exam date and time: 07/09/2020 2:08 PM Age: 64 years old Clinical indication: Other: Fever; Additional info: Fever uknown source TECHNIQUE: Imaging protocol: Computed tomography images of the thoracic spine without contrast. Axial, coronal and sagittal reformatted images were created and reviewed. Radiation optimization: All CT scans at this facility use at least one of these dose optimization techniques: automated exposure control; mA and/or kV adjustment per patient size (includes targeted exams where dose is matched to clinical indication); or iterative reconstruction. COMPARISON: No relevant prior studies available. RADIATION DOSE METRICS: Total DLP (mGy-cm): 1675.98 FINDINGS: Vertebrae: Normal thoracic kyphosis. Alignment anatomic. No CT evidence of acute fracture, dislocation or subluxation. Vertebral body heights maintained. Discs/Spinal canal/Neural foramina: Mild multilevel spondylosis. No significant spinal canal or neural foraminal stenosis. Soft tissues: Unremarkable. CT/CT thoracic spin wo con* [id number] IMPRESSION: Mild multilevel spondylosis. Radiation Dose CTDIVOL = (mGy): DLP = 1675.98 (mGy-cm)
--- NOTE | 2020-07-09 13:41 | CTR_ITS ---
PROCEDURE INFORMATION: Exam: CT Lumbar Spine Without Contrast Exam date and time: 07/09/2020 2:08 PM Age: 64 years old Clinical indication: Other: Fever; Additional info: Fever, unkown source TECHNIQUE: Imaging protocol: Computed tomography images of the lumbar spine without contrast. Axial, coronal and sagittal reformatted images were created and reviewed. Radiation optimization: All CT scans at this facility use at least one of these dose optimization techniques: automated exposure control; mA and/or kV adjustment per patient size (includes targeted exams where dose is matched to clinical indication); or iterative reconstruction. COMPARISON: MRI Lumbar Spine w/o [id number] 02/23/2016 1:17 PM RADIATION DOSE METRICS: Total DLP (mGy-cm): 2039.6 FINDINGS: Vertebrae: Normal lumbar lordosis. Alignment anatomic. No CT evidence of acute fracture, dislocation or subluxation. Vertebral body heights maintained. Discs/Spinal canal/Neural foramina: Multilevel spondylosis, characterized by disc space narrowing, osteophytosis, shallow disc bulges and facet/ligamentous hypertrophy. Mild resultant multilevel spinal canal and neural foraminal narrowing. Soft tissues: Grossly unremarkable. CT/CT lumbar spine wo con* [id number] IMPRESSION: Multilevel spondylosis and degenerative disc disease. Radiation Dose CTDIVOL = (mGy): DLP = 2039.6 (mGy-cm)
--- NOTE | 2020-07-09 13:42 | CTR_ITS ---
PROCEDURE INFORMATION: Exam: CT Chest Without Contrast; Diagnostic Exam date and time: 07/09/2020 2:08 PM Age: 64 years old Clinical indication: Fever; Additional info: Fever uknown source TECHNIQUE: Imaging protocol: Diagnostic computed tomography of the chest without contrast. Axial, coronal and sagittal reformatted images were created and reviewed. Radiation optimization: All CT scans at this facility use at least one of these dose optimization techniques: automated exposure control; mA and/or kV adjustment per patient size (includes targeted exams where dose is matched to clinical indication); or iterative reconstruction. COMPARISON: CT angio chest PE protcl [id number] 07/06/2020 1:37 PM RADIATION DOSE METRICS: Total DLP (mGy-cm): 1364.29 FINDINGS: Lungs: Mild linear stranding, consistent with atelectasis and/or scarring. Nonspecific foci of ground-glass infiltration and interstitial thickening in the right upper lobe, increased in conspicuity since the prior study. No focal consolidation. Pleural spaces: Unremarkable. No pneumothorax. No pleural effusion. Heart: Unremarkable. No cardiomegaly. No pericardial effusion. Aorta: Mild atherosclerotic disease. No aneurysm. Lymph nodes: Enlarged left axillary lymph nodes, measuring up to 2.3 x 1.9 cm, similar to prior. Bones/joints: No acute osseous abnormality. Osteopenia. Mild degenerative changes. Suture anchors in the humeral head. Soft tissues: Unremarkable. IMPRESSION: 1. Limited noncontrast examination. 2. Nonspecific foci of ground-glass infiltration and interstitial thickening in the right upper lobe, increased in conspicuity since the prior study. 3. Left axillary lymphadenopathy, similar to prior. 4. Additional findings, as above. PROCEDURE INFORMATION: Exam: CT Abdomen And Pelvis Without Contrast Exam date and time: 07/09/2020 2:08 PM Age: 64 years old Clinical indication: Fever; Additional info: Fever uknown source TECHNIQUE: Imaging protocol: Computed tomography of the abdomen and pelvis without contrast. Axial, coronal and sagittal reformatted images were created and reviewed. Radiation optimization: All CT scans at this facility use at least one of these dose optimization techniques: automated exposure control; mA and/or kV adjustment per patient size (includes targeted exams where dose is matched to clinical indication); or iterative reconstruction. COMPARISON: CT angio chest PE protcl [id number] 07/06/2020 1:37 PM RADIATION DOSE METRICS: Total DLP (mGy-cm): 1364.29 FINDINGS: Liver: Diffuse hepatic steatosis. Gallbladder and bile ducts: No radiodense gallstones. No biliary ductal dilatation. Pancreas: Unremarkable. Spleen: Unremarkable. Adrenal glands: Normal. No mass. Kidneys and ureters: Mild nonspecific bilateral perinephric stranding. No radiodense calculi. No hydronephrosis. Stomach and bowel: Moderate amount of retained stool in the colon. Scattered colonic diverticula without evidence of diverticulitis. No obstruction. No bowel wall thickening. No pneumatosis. Appendix: Normal. Intraperitoneal space: No free fluid. No organized fluid collection. No free air. Vasculature: Mild atherosclerotic disease. No aneurysm. Lymph nodes: No pathologically enlarged lymph nodes. Urinary bladder: Mild circumferential urinary bladder wall thickening, likely secondary to underdistention. Reproductive: Unremarkable. Bones/joints: No acute osseous abnormality. Osteopenia. Degenerative changes. Soft tissues: Mild nonspecific infiltration of the subcutaneous fat with overlying skin thickening in the left anterior abdominal wall. Small, fat containing umbilical hernia. CT/CT chest abd pel wo con IMPRESSION: 1. Limited noncontrast examination without CT evidence of acute intra-abdominal or pelvic pathology. 2. Additional findings, as above. Radiation Dose CTDIVOL = (mGy): DLP = 1364.29~1364.29 (mGy-cm)
--- NOTE | 2020-07-09 13:44 | PM.PN ---
Subjective Subjective: Interval history: Patient tells me that he had a difficult night, he continues to have multiple joint pains, bilateral knee pain, bilateral ankle pain, hip pain, he tells me that he had high fevers overnight, just was not feeling well, no shortness of breath, no cough, no headache, blurry vision, no nausea, no vomiting, no neck pain, no neck stiffness, that morphine was not helping, so I switched him to Dilaudid and is tells me that the Dilaudid is not helping, he feels nauseous Vitals/I&O/Wt Last Vital Signs Temp 98.3 F 07/09/20 11:43 Pulse 73 07/09/20 11:43 Resp 30 H 07/09/20 11:43 BP 124/71 07/09/20 11:43 Pulse Ox 93 07/09/20 11:43 07/08/20 07/09/20 07/09/20 22:59 06:59 14:59 Intake Total 1498.75 / 3633.75 528.0 / 4161.75 134.167 / 134.167 Output Total 1650 / 2600 875 / 3475 725 / 725 Balance -151.25 / 1033.75 -347.0 / 686.75 -590.833 / -590.833 Physical Exam Narrative: EXAM NARRATIVE: Not toxic appearing, smiling Const: COMMON NORMALS: no acute distress ORIENTATION/CONSCIOUSNESS: Yes awake, Yes oriented to person, Yes oriented to place and Yes oriented to time Neck/C-Spine: COMMON NORMALS: full ROM, no lymphadenopathy, supple and no meningeal signs Chest: COMMONS NORMALS: normal inspection of the chest Resp: COMMON NORMALS: normal respiratory effort, No retractions and No use of accessory muscles AUSCULTATION: crackles Cardio: COMMON NORMALS: regular rate, regular rhythm, S1 normal heart sound present and S2 normal heart sound present RATE: regular rate RHYTHM: regular rhythm HEART SOUNDS: S1 normal heart sound present and S2 normal heart sound present GI: COMMON NORMALS: Normal to inspection, nondistended, normoactive bowel sounds present, Soft to palpation, non-tender and No hepatosplenomegaly present PALPATION: Yes Soft to palpation and Yes No hepatosplenomegaly present Extremity: NARRATIVE EXTREMITY EXAM: Bilateral knee pain to palpation, slightly warm, slightly erythematous, slightly tender Bilateral ankle pain, slightly warm, slight erythematous, slightly tender Bilateral calf pain, Neuro: SENSORIUM/ORIENTATION: Yes oriented to person, Yes oriented to place and Yes oriented to time MENINGEAL SIGNS: Yes no meningeal signs Data : 07/09/20 01:34 07/09/20 01:34 Micro: Microbiology 07/09/20 09:52 Blood Culture - Preliminary Blood SPECIMEN COLLECTED 07/09/20 09:45 Blood Culture - Preliminary Blood SPECIMEN COLLECTED 07/06/20 21:27 Gram Stain - Final Sputum - Expectorated Sputum Sputum Culture - Final A&P Assessment and plan (1) Septic joint of left knee joint: -Left knee is slightly swollen, slightly erythematous, slightly warm -Did fall 2 weeks ago, had left knee pain, had a left knee steroid injection -Did have complaints of fevers, chills, fatigue, malaise on admission -Is immunocompromised, on rinvoq -CT scan does show small joint effusion nonseptic versus septic -Has been on broad-spectrum antibiotic therapy since admission -CRP down to 85.4, ESR 82, blood cultures so far unremarkable -This morning accompanied multiple joint pains, musculoskeletal pain, fatigue, malaise -I have consulted orthopedic service, Dr. Edwards to see to decide if joint needs to be tapped, who feels that patient does not have a septic joint -Continue Zyvox, Zosyn -Monitor clinically Status: Ruled-out (2) Atypical pneumonia: -Patient is immunocompromised, on chronic steroids, on Rinvoq -Received both doses of the Covid vaccine -Rapid Covid negative, influenza negative -Sepsis criteria met on admission, temp 100.4, white blood cell count 13.6, blood pressures 80s over 70s, improving with fluids, D-dimer 3.91, creatinine 1.3 -CT angiogram of the chest shows peripheral groundglass opacities, Covid test negative, rapid flu negative -Echocardiogram does not show significant valvular vegetations, blood cultures are unremarkable, will hold off on transesophageal echocardiogram -2 days ago had a tick bite -Sputum culture positive for MRSA -Continues to have fevers, as high as 103, improving with Tylenol, multiple joint pains, multiple musculoskeletal pain, fatigue, malaise Plan: -Repeat blood cultures -Continue Zyvox, Zosyn - doxycycline to cover for [place] spotted fever, Lyme, but no rashes -Sputum cultures, blood cultures, urine bacterial antigens, TB, fungal panel, tick panel, [place] spotted fever, MRSA nares, CRP, pro-Nikunj, Aspergillus, viral panel, HIV, hep C, CMV, EBV are pending -Given persistent fevers, will do CT of the spine to rule out abscess, CT of the abdomen to rule out abscess or intra-abdominal pathology repeat CT of the chest -If no source is identified, and will pursue tagged white blood cell scan -Monitor respiratory status closely, monitor vitals closely -Stop IV fluids, hold off on Decadron, does have crackles on exam, is 5 L positive, will give 1 dose of Lasix -Continue albuterol, Advair, will hold off on further steroids as patient is not actively wheezing -Oxygen protocol -Telemetry monitoring continue aspirin, statin -Full code -Lovenox for DVT prophylaxis Status: Acute (3) New onset atrial fibrillation: -Has a history of chest palpitations the past, leaky heart valve -Required Cardizem drip, converted to normal sinus rhythm, currently normal sinus rhythm -Continue metoprolol 50 twice daily -TSH -Mag within normal limits -Therapeutic Lovenox -Cardiac echo shows EF of 35 to 40%, mildly reduced right ventricular function, Status: Acute (4) Sepsis: Status: Acute (5) LEIGH (acute kidney injury): Status: Acute (6) PVC (premature ventricular contraction): Status: Acute (7) CHF (congestive heart failure): -Has a history of CHF, EF 40% -Repeat echocardiogram shows EF of 35 to 40% -Has crackles on exam, discontinue fluids, give dose of Lasix, 5 L positive Status: Acute Qualifiers: Heart failure type: systolic Heart failure chronicity: chronic Qualified Code(s): I50.22 - Chronic systolic (congestive) heart failure (8) Hypertension: Status: Acute Qualifiers: Hypertension type: essential hypertension Qualified Code(s): I10 - Essential (primary) hypertension (9) COPD (chronic obstructive pulmonary disease): Status: Acute Qualifiers: COPD type: chronic bronchitis Chronic bronchitis type: simple Qualified Code(s): J41.0 - Simple chronic bronchitis (10) GERD (gastroesophageal reflux disease): Status: Acute Qualifiers: Esophagitis presence: with esophagitis Qualified Code(s): K21.0 - Gastro-esophageal reflux disease with esophagitis Additional A&P Information Plan for today, consult orthopedic service, stop vancomycin, switch to Zyvox, monitor clinically, get heart rates under control with atrial fibrillation Attestations Medical Necessity Statement*: Patient requires hospitalization for persistent fevers, atypical pneumonia, multiple joint pains, possible septic joint Coding Level of Care Code Acute Banking Pin Adjuster for g Fwd Diagnoses Septic joint of left knee joint M00.9 Atypical pneumonia J18.9 New onset atrial fibrillation I48.91 Sepsis A41.9 LEIGH (acute kidney injury) N17.9 PVC (premature ventricular contraction) I49.3 CHF (congestive heart failure) I50.22 Heart failure type: systolic Heart failure chronicity: chronic Hypertension I10 Hypertension type: essential hypertension COPD (chronic obstructive pulmonary disease) J41.0 COPD type: chronic bronchitis Chronic bronchitis type: simple GERD (gastroesophageal reflux disease) K21.0 Esophagitis presence: with esophagitis
--- NOTE | 2020-07-09 14:54 | PC.NURSE ---
Patient taken to CT scan at 1410 in a wheelchair. Returned to room at 1445. HR65 SR with pac's.
[2020-07-09] MEDS: FUROsemide 10 mg/mL SDV 4mL 40 MG IVP ×2 (15:27→21:03)
[2020-07-09] MEDS: potassium chloride ER 20 mEq Tablet 40 MEQ PO (15:27)
[2020-07-09 16:52] LABS: Erythrocyte Sedimentation Rate 74 mm/hr (0-10)
[2020-07-09] MEDS: HYDROmorphone 1 mg/mL INJ 1 mL 2 MG IVP (17:05)
[2020-07-09] MEDS: atorvastatin 40 mg Tablet PO (21:01)
[2020-07-09] MEDS: potassium chloride ER 20 mEq Tablet PO (21:03)
[2020-07-09] MEDS: sodium chloride 0.9% 500 ML 250 ML IV (23:30)
[2020-07-10] VITALS (21 sets, daily range): BP systolic 104–139; BP diastolic 59–101; PULSE 67–115; RESP 15–25; TEMP 36.8–39.7; O2SAT 90–98
[2020-07-10] MEDS: HYDROmorphone 1 mg/mL INJ 1 mL 2 MG IVP ×4 (00:15→21:40)
[2020-07-10] MEDS: enoxaparin 80 mg/0.8 mL Syringe SUBCUT ×2 (00:16→11:54)
[2020-07-10] MEDS: linezolid premix 600 MG/300 ML PREMIX 300 MG IV ×2 (01:08→14:15)
[2020-07-10] MEDS: metoprolol tartrate 25 mg Tablet 50 MG PO ×2 (03:45→14:30)
[2020-07-10 04:21] LABS: Basophils # 0.1 10^3/uL (0.0-0.1); Basophils % 0.5 %; Eosinophils % 0.4 %; Hematocrit 35.9 % (42.0-52.0); Hemoglobin 12.1 g/dL (11.7-16.6); Lymphocytes # 0.5 10^3/uL (0.8-4.8); Mean Corpuscular HGB Conc 33.7 g/dL (30.0-36.0); Mean Corpuscular Hemoglobin 30.2 pg (28.0-34.0); Mean Corpuscular Volume 89.5 fL (80-94); Monocytes # 1.2 10^3/uL (0.2-0.9); Monocytes % 11.1 %; Neutrophils # 8.87 10^3/uL (1.8-7.7); Neutrophils % 81.3 %; Nucleated Red Blood Cells % 0 %; Platelet Count 237 10^3/cmm (130-400); Red Blood Count 4.01 10^6/uL (4.1-5.3); Red Cell Distribution Width 13.8 % (12.1-15.1); White Blood Count 10.9 10^3/uL (4.0-10.0)
[2020-07-10 04:34] LABS: INR 1.11 (0.8-1.2)
[2020-07-10 04:42] LABS: Lactate (Lactic Acid level) 1.5 mmol/L (0.5-2.2)
--- NOTE | 2020-07-10 04:42 | PC.NURSE ---
Around 2300: Patients temp 100.[address] Downs. Orders received, see APR.
[2020-07-10 04:52] LABS: Procalcitonin 0.27 ng/mL (0-0.5)
[2020-07-10 05:05] LABS: Alanine Aminotransferase 21 U/L (0-41); Albumin Level 3.5 g/dL (3.5-5.2); Alkaline Phosphatase 59 IU/L (40-130); Anion Gap 16.6 (5-19); Aspartate Amino Transferase 25 U/L (0-40); Blood Urea Nitrogen 17 mg/dL (8-23); C Reactive Protein 182.8 mg/L (0.0-4.9); Calcium 8.4 mg/dL (8.5-10.5); Carbon Dioxide 23 mmol/L (22-29); Chloride 101 mmol/L (98-107); Creatinine Clr Calc Pharmacy 81.3354; Globulin 2.7 g/dL (1.3-4.6); Glomerular Filtration Rate 75.7 mL/min (90-130); Glucose 133 mg/dL (65-115); Magnesium 2.1 mg/dL (1.7-2.3); Osmolality Calculated 287 mOsm/kg (285-295); Phosphorus 3.5 mg/dL (2.5-4.5); Potassium 3.6 mmol/L (3.5-5.1); Sodium 137 mmol/L (136-145); Total Bilirubin 0.3 mg/dL (0.15-1.2); Total Protein 6.2 g/dL (6.6-8.7)
[2020-07-10 05:09] LABS: Creatine Phosphokinase 330 U/L (39-308)
[2020-07-10] MEDS: ibuprofen 800 mg tablet PO ×2 (06:14→16:56)
[2020-07-10] MEDS: potassium chloride ER 10 mEq Tablet PO (06:19)
[2020-07-10] MEDS: aspirin 81 mg EC Tablet PO (06:19)
[2020-07-10] MEDS: famotidine 20 mg Tablet PO ×2 (08:09→16:58)
[2020-07-10] MEDS: cholecalciferol (vitamin D3) 1,000 unit Tablet 1000 UNIT PO (08:09)
[2020-07-10] MEDS: ascorbic acid 500 mg Tablet 1000 MG PO ×3 (08:09→16:58)
[2020-07-10] MEDS: tamsulosin 0.4 mg Capsule PO ×2 (08:09→21:25)
[2020-07-10] MEDS: zinc gluconate 50 mg Tablet PO (08:09)
[2020-07-10] MEDS: ALPRAZolam 0.25 mg Tablet PO ×2 (08:10→21:35)
--- NOTE | 2020-07-10 09:41 | PC.SOCIAL ---
IMM Update Pg.2 of IMM Updated and reviewed with patient, who verbalized understanding. Copy provided.
[2020-07-10] MEDS: doxycycline 100 MG in sodium chloride 0.9% (plus) 100 ML IV ×2 (09:54→21:26)
[2020-07-10 10:52] LABS: Cytomegalovirus Antibody (IGM) <30.00 AU/mL
[2020-07-10 11:58] LABS: Lyme AB Screen <0.90 index
[2020-07-10 11:59] LABS: EBV IGG TEST >750.00 U/mL; EBV IGM TEST <36.00 U/mL
[2020-07-10] MEDS: acetaminophen 325 mg Tablet 650 MG PO (12:09)
--- NOTE | 2020-07-10 13:06 | P.PN_ITS ---
Subjective Subjective: Interval history: no acute events overnight afebrile pain stable when seen Vitals/I&O/Wt Last Vital Signs Temp 98.5 F 07/10/20 12:01 Pulse 103 H 07/10/20 12:01 Resp 25 H 07/10/20 12:01 BP 104/60 07/10/20 12:01 Pulse Ox 94 07/10/20 07:27 07/09/20 07/10/20 07/10/20 22:59 06:59 14:59 Intake Total 200 / 732.392 1042 / 2434.167 762 / 762 Output Total 1540 / 3285 850 / 4135 400 / 400 Balance -1340 / -2350.833 650 / -1700.833 362 / 362 Physical Exam Const: COMMON NORMALS: no acute distress and patient oriented x3 Resp: COMMON NORMALS: normal respiratory effort and No retractions Cardio: COMMON NORMALS: regular rate and regular rhythm RATE: regular rate RHYTHM: regular rhythm GI: COMMON NORMALS: Soft to palpation and non-tender PALPATION: Yes Soft to palpation Neuro: COMMON NORMALS: patient oriented x3 and CN's II-XII intact bilaterally Psych: COMMON NORMALS: mental status grossly normal and Normal thought process present THOUGHT PROCESS: Normal thought process present Data : 07/10/20 03:23 07/10/20 03:23 Micro: Microbiology 07/09/20 09:45 Blood Culture - Preliminary Blood NEGATIVE TO DATE 07/09/20 09:52 Blood Culture - Preliminary Blood NEGATIVE TO DATE 07/06/20 21:27 Gram Stain - Final Sputum - Expectorated Sputum Sputum Culture - Final A&P Assessment and plan (1) Septic joint of left knee joint: Status: Ruled-out (2) Atypical pneumonia: Status: Acute (3) Hypertension: Status: Acute Qualifiers: Hypertension type: essential hypertension Qualified Code(s): I10 - Essential (primary) hypertension (4) COPD (chronic obstructive pulmonary disease): Status: Acute Qualifiers: COPD type: chronic bronchitis Chronic bronchitis type: simple Qualified Code(s): J41.0 - Simple chronic bronchitis Additional A&P Information #left knee swelling --on broad spectrum abx --orthopedic consulted --trend inflammatory markers #atypical pneumonia --on abx --continue nebs #new onset afib --rate controlled #systolic dysfunction CHF --EF 40% --euvolemic DVT:Lovenox Attestations Medical Necessity Statement*: Herrera Quintana's hospital stay will require greater than 2 midnights for pneumonia Coding Level of Care Code Acute Customer Service Dispatcher for g Fwd Diagnoses Septic joint of left knee joint M00.9 Atypical pneumonia J18.9 Hypertension I10 Hypertension type: essential hypertension COPD (chronic obstructive pulmonary disease) J41.0 COPD type: chronic bronchitis Chronic bronchitis type: simple
[2020-07-10] MEDS: acetaminophen 500 mg Tablet PO (17:00)
--- NOTE | 2020-07-10 17:05 | PC.NURSE ---
Febrile at 103.4 orally Pt has been shivering with chills, anxious and restless. need redirection. Ice pack provided on arm pits, groin areas, neck areas and cool washcloth on forehead. supported pt in bed with pillows due to excessive shivering. nurse at bedside. notified doctor via telephone.
--- NOTE | 2020-07-10 17:12 | PC.NURSE ---
fever 102
[2020-07-10 17:27] LABS: Adenovirus Not Detected (Not Detected); Human Metapneumovirus Not Detected (Not Detected); Human Parainflu Virus 1 Not Detected (Not Detected); Human Parainflu Virus 2 Not Detected (Not Detected); Human Parainflu Virus 3 Not Detected (Not Detected); Human Rsv A Not Detected (Not Detected); Influenza A Not Detected (Not Detected); Influenza B Not Detected (Not Detected); Rhinovirus/Enterovirus Not Detected (Not Detected)
--- NOTE | 2020-07-10 17:41 | PC.NURSE ---
Pt fever is down to 98.2 Pt is much more alert, sitting up and walking around the room. refused his dinner and offered him orange sherbet which he ate.
--- NOTE | 2020-07-10 17:42 | XR_ITS ---
WS: [id number] Exam: XR chest 1V portable [id number] Date/Time of Exam: 07/10/2020 5:45 PM Reason For Exam: fever Comparison 07/06/2020. The lungs are clear and fully inflated. Normal cardiomediastinal structures and bony elements. [place] ing screws noted in the right humeral head. Monitoring leads superimpose the chest. Old left clavicle fracture. XR/XR chest 1V portable [id number] IMPRESSION: 1. No acute cardiopulmonary finding. No change.
[2020-07-10 18:40] LABS: Basophils % 0.3 %; Eosinophils % 0.3 %; Hematocrit 35.6 % (42.0-52.0); Lymphocytes # 0.5 10^3/uL (0.8-4.8); Lymphocytes % 4.5 %; Mean Corpuscular HGB Conc 33.7 g/dL (30.0-36.0); Mean Corpuscular Hemoglobin 29.8 pg (28.0-34.0); Mean Corpuscular Volume 88.3 fL (80-94); Mean Platelet Volume 10.7 fL (7.4-10.4); Monocytes # 1.3 10^3/uL (0.2-0.9); Monocytes % 11.1 %; Neutrophils # 9.39 10^3/uL (1.8-7.7); Neutrophils % 82.1 %; Nucleated Red Blood Cells % 0 %; Platelet Count 214 10^3/cmm (130-400); Red Blood Count 4.03 10^6/uL (4.1-5.3); White Blood Count 11.4 10^3/uL (4.0-10.0)
[2020-07-10 19:09] LABS: Alanine Aminotransferase 24 U/L (0-41); Albumin Level 3.2 g/dL (3.5-5.2); Alkaline Phosphatase 55 IU/L (40-130); Aspartate Amino Transferase 34 U/L (0-40); Blood Urea Nitrogen 20 mg/dL (8-23); Calcium 8.4 mg/dL (8.5-10.5); Carbon Dioxide 22 mmol/L (22-29); Chloride 98 mmol/L (98-107); Creatine Phosphokinase 202 U/L (39-308); Creatinine Clr Calc Pharmacy 81.3354; Globulin 3.8 g/dL (1.3-4.6); Glomerular Filtration Rate 75.7 mL/min (90-130); Glucose 128 mg/dL (65-115); Osmolality Calculated 282 mOsm/kg (285-295); Sodium 134 mmol/L (136-145); Total Bilirubin 0.3 mg/dL (0.15-1.2)
[2020-07-10 19:11] LABS: Anion Gap 17.6 (5-19); Potassium 3.6 mmol/L (3.5-5.1)
[2020-07-10] MEDS: atorvastatin 40 mg Tablet PO (21:26)
[2020-07-11] VITALS (16 sets, daily range): BP systolic 99–132; BP diastolic 63–87; PULSE 76–120; RESP 16–26; TEMP 36.5–38.4; O2SAT 92–98
[2020-07-11] MEDS: enoxaparin 80 mg/0.8 mL Syringe SUBCUT ×2 (00:35→11:31)
[2020-07-11] MEDS: ibuprofen 800 mg tablet PO ×3 (00:41→19:48)
[2020-07-11] MEDS: linezolid premix 600 MG/300 ML PREMIX 300 MG IV (01:35)
[2020-07-11] MEDS: acetaminophen 325 mg Tablet 650 MG PO ×2 (02:11→07:49)
[2020-07-11] MEDS: metoprolol tartrate 50 mg Tablet PO ×2 (03:09→16:31)
[2020-07-11 05:27] LABS: Basophils % 0.3 %; Eosinophils # 0.1 10^3/uL (0.0-0.8); Eosinophils % 0.8 %; Hematocrit 34.3 % (42.0-52.0); Hemoglobin 11.7 g/dL (11.7-16.6); Lymphocytes # 0.5 10^3/uL (0.8-4.8); Lymphocytes % 5.1 %; Mean Corpuscular HGB Conc 34.1 g/dL (30.0-36.0); Mean Corpuscular Hemoglobin 30.2 pg (28.0-34.0); Mean Corpuscular Volume 88.6 fL (80-94); Mean Platelet Volume 10.8 fL (7.4-10.4); Monocytes # 0.8 10^3/uL (0.2-0.9); Monocytes % 7.9 %; Neutrophils # 8.64 10^3/uL (1.8-7.7); Neutrophils % 84.6 %; Nucleated Red Blood Cells % 0 %; Platelet Count 264 10^3/cmm (130-400); Red Blood Count 3.87 10^6/uL (4.1-5.3); White Blood Count 10.2 10^3/uL (4.0-10.0)
[2020-07-11 05:34] LABS: INR 1.15 (0.8-1.2)
[2020-07-11 05:57] LABS: Procalcitonin 0.32 ng/mL (0-0.5)
[2020-07-11] MEDS: potassium chloride ER 10 mEq Tablet PO (06:03)
[2020-07-11] MEDS: aspirin 81 mg EC Tablet PO (06:03)
[2020-07-11] MEDS: HYDROmorphone 1 mg/mL INJ 1 mL 2 MG IVP ×4 (06:09→20:39)
[2020-07-11 06:18] LABS: Alanine Aminotransferase 21 U/L (0-41); Alkaline Phosphatase 52 IU/L (40-130); Anion Gap 14.4 (5-19); Aspartate Amino Transferase 24 U/L (0-40); Blood Urea Nitrogen 18 mg/dL (8-23); C Reactive Protein 176.2 mg/L (0.0-4.9); Calcium 8.5 mg/dL (8.5-10.5); Carbon Dioxide 25 mmol/L (22-29); Chloride 101 mmol/L (98-107); Creatine Phosphokinase 124 U/L (39-308); Creatinine Clr Calc Pharmacy 81.3354; Globulin 3.4 g/dL (1.3-4.6); Glomerular Filtration Rate 75.7 mL/min (90-130); Glucose 142 mg/dL (65-115); Magnesium 1.8 mg/dL (1.7-2.3); Osmolality Calculated 288 mOsm/kg (285-295); Phosphorus 2.4 mg/dL (2.5-4.5); Potassium 3.4 mmol/L (3.5-5.1); Sodium 137 mmol/L (136-145); Total Bilirubin 0.3 mg/dL (0.15-1.2); Total Protein 6.4 g/dL (6.6-8.7)
[2020-07-11] MEDS: famotidine 20 mg Tablet PO (07:49)
[2020-07-11] MEDS: tamsulosin 0.4 mg Capsule PO ×2 (07:50→19:48)
[2020-07-11] MEDS: cholecalciferol (vitamin D3) 1,000 unit Tablet 1000 UNIT PO (07:50)
[2020-07-11] MEDS: doxycycline 100 mg Tablet PO ×2 (07:51→19:48)
[2020-07-11] MEDS: phosphorus 250 mg Tablet PO (09:35)
[2020-07-11] MEDS: potassium chloride ER 20 mEq Tablet 40 MEQ PO (09:36)
[2020-07-11] MEDS: zinc gluconate 50 mg Tablet PO (11:31)
--- NOTE | 2020-07-11 13:50 | P.PN_ITS ---
Subjective Subjective: Interval history: Febrile today was having chills and shakes yesterday. Medications: Reviewed: Yes Vitals/I&O/Wt Last Vital Signs Temp 101.1 F H 07/11/20 11:29 Pulse 110 H 07/11/20 11:29 Resp 18 07/11/20 11:32 BP 132/69 07/11/20 11:29 Pulse Ox 94 07/11/20 11:29 07/10/20 07/11/20 07/11/20 22:59 06:59 14:59 Intake Total 600 / 1462 700 / 2162 100 / 100 Output Total 400 / 1120 1120 Balance 200 / 342 699 / 1041 100 / 100 Physical Exam Const: COMMON NORMALS: average body habitus and patient oriented x3 Resp: COMMON NORMALS: normal respiratory effort and No use of accessory muscles Cardio: COMMON NORMALS: regular rate and regular rhythm RATE: regular rate RHYTHM: regular rhythm GI: COMMON NORMALS: Normal to inspection, nondistended, normoactive bowel sounds present and Soft to palpation PALPATION: Yes Soft to palpation Extremity: COMMON NORMALS: normal to inspection Neuro: COMMON NORMALS: patient oriented x3 Data : 07/11/20 05:03 07/11/20 05:03 Micro: Microbiology 07/06/20 12:42 Blood Culture - Final Blood NO GROWTH AFTER 5 DAYS 07/06/20 12:25 Blood Culture - Final Blood NO GROWTH AFTER 5 DAYS 07/09/20 09:45 Blood Culture - Preliminary Blood NEGATIVE TO DATE 07/09/20 09:52 Blood Culture - Preliminary Blood NEGATIVE TO DATE A&P Assessment and plan (1) Fever: Status: Acute (2) Seropositive rheumatoid arthritis of multiple sites: Status: Acute (3) New onset atrial fibrillation: Status: Acute Additional A&P Information #fever --on broad spectrum abx --check echo --head ct prior ok, consider LP --tagged WBC scan ordered --trend inflammatory markers #atypical pneumonia --on abx --continue nebs #new onset afib --rate controlled #systolic dysfunction CHF --EF 40% --euvolemic DVT:Lovenox Attestations Medical Necessity Statement*: Herrera Quintana's hospital stay will require greater than 2 midnights for fevers Coding Level of Care Code Acute Proofing Machine Operator for g Fwd Diagnoses Fever R50.9 Seropositive rheumatoid arthritis of multiple sites M05.79 New onset atrial fibrillation I48.91
[2020-07-11] MEDS: linezolid 600 mg Tablet PO (16:32)
--- NOTE | 2020-07-11 17:25 | NM_ITS ---
WS: [id number] NUCLEAR MEDICINE TAGGED WHITE BLOOD CELL SCAN HISTORY: tagged WBC scan for recurrent fevers, atypical pneumonia. COMPARISON: 07/09/2020 CT TECHNIQUE: 22.0 mCi of TC 99m Ceretec tagged white blood cells are injected intravenously. Whole body imaging is performed in the anterior and posterior planes. Whole body imaging is performed in the an terior and posterior planes obtained at 5 hours. Normal increased uptake throughout the liver and spleen and in the urinary bladder. There is very mil d increased uptake within the lungs bilaterally. Symmetric increased uptake may represent mild pneumo nitis. There is no focal area of very intense uptake. Soft tissues and osseous structures are otherwi se negative. NM/NM CERETEC WBC scan* [id number] IMPRESSION: 1. Very mild increased uptake in the lungs suggesting a mild pneumonitis. No f ocal pneumonia. 2. No osseous uptake.
[2020-07-11 18:17] LABS: Quantiferon Mitogen 5.63 IU/mL; Quantiferon Nil 0.02 IU/mL; Quantiferon TB Gold NEGATIVE (NEGATIVE)
[2020-07-11] MEDS: ALPRAZolam 0.25 mg Tablet PO (18:43)
[2020-07-11] MEDS: acetaminophen 1,000 MG/100 ML PIGGYBACK 400 MG IV (19:30)
--- NOTE | 2020-07-11 19:34 | PM.EVENT ---
Event Note Event Note: I was called at the bedside for evaluation of the patient When I entered the room to the nurses were verbally redirecting him Axillary temperature 104.5 Sinus tachycardia heart rate 120s Patient was awake alert oriented to himself and kept repeating I wanted to get up and seemed irritable and anxious Sinus tachycardia on telemetry Abdomen has multiple petechiae and bruises from Lovenox injections Lower extremity no edema gangrene or ulcer Assessment and plan Use IV Tylenol Remove clothing turn on air conditioning and fan in the room Cold sponges I reviewed his labs and antibiotics I see doxycycline, Zyvox, Primaxin, broad-spectrum antibiotic coverage, concern for tick bite Nursing staff is reporting that with febrile episodes he does get confused, no active signs of meningitis EBV, CMV IgG positive Right now he is not stable enough to get a lumbar puncture/CSF studies because he is very agitated and trying to get out of the bed and there are 2 nurses who are verbally redirecting him
[2020-07-11] MEDS: atorvastatin 40 mg Tablet PO (22:07)
[2020-07-12] VITALS (13 sets, daily range): BP systolic 110–130; BP diastolic 62–86; PULSE 55–108; RESP 15–33; TEMP 36.2–39.9; O2SAT 93–98
[2020-07-12] MEDS: enoxaparin 80 mg/0.8 mL Syringe SUBCUT (00:16)
[2020-07-12] MEDS: acetaminophen 325 mg Tablet 650 MG PO ×5 (00:30→23:16)
[2020-07-12] MEDS: ibuprofen 800 mg tablet PO ×3 (03:07→20:41)
[2020-07-12] MEDS: linezolid 600 mg Tablet PO ×2 (03:07→15:50)
[2020-07-12] MEDS: metoprolol tartrate 50 mg Tablet PO ×2 (03:08→15:50)
[2020-07-12 05:14] LABS: Lactate (Lactic Acid level) 0.7 mmol/L (0.5-2.2)
[2020-07-12 06:00] LABS: C Reactive Protein 167.1 mg/L (0.0-4.9); Creatine Phosphokinase 66 U/L (39-308)
[2020-07-12] MEDS: aspirin 81 mg EC Tablet PO (06:02)
[2020-07-12] MEDS: potassium chloride ER 10 mEq Tablet PO (06:03)
[2020-07-12 06:10] LABS: Procalcitonin 0.65 ng/mL (0-0.5)
--- NOTE | 2020-07-12 08:25 | MR_ITS ---
WS: [id number] MRI BRAIN WITHOUT CONTRAST HISTORY: ams, fevers COMPARISON: None available. TECHNIQUE: Diffusion imaging, multiplanar T1, T2 and FLAIR imaging obtained. No evidence for acute infarct or hemorrhage. Teran-white matter differentiation is normal. Area of decreased signal intensity in the LEFT temporal lobe surrounded by increased T2 signal no mas s effect. There is a additional mild increased signal in the adjacent LEFT temporal cortex. No eviden ce for an acute infarct or hemorrhage. There is additional mild scattered T2 and FLAIR signal hyperin tensities in a distribution most likely from chronic ischemic disease. Microvascular disease in the L EFT kyra. Additional subcortical increased signal on the FLAIR and T2 sequences in the LEFT frontal lobe. Ventricles and extra-axial spaces are normal. No inferior displacement of cerebellar tonsils. The sella turcica and pituitary gland are unremarkabl e. Posterior fossa is also unremarkable. Dural venous sinuses and jamul of [place] demonstrate no abnormality on this unenhanced studies. Paranasal sinuses: Clear. Mastoid air cells: Normal. Calvarium and scalp: Intact. MR/MR head wo con* [id number] IMPRESSION: 1. No acute infarct. 2. Ovoid cystic cavity with mild increased signal in the LEFT temporal lobe wi th adjacent temporal lobe increased T2 signal. Additional subcortical white mat ter hyperintensity in the LEFT frontal lobe. No mass effect. With patient's his tory of mental status changes cerebritis or developing brain abscess may be pre sent although there is not a lot of inflammation. Consider Lyme disease also. S uggest further evaluation by MRI with contrast. 3. No significant sinus disease.
[2020-07-12] MEDS: tamsulosin 0.4 mg Capsule PO ×2 (08:29→20:55)
[2020-07-12] MEDS: phosphorus 250 mg Tablet PO (08:30)
[2020-07-12] MEDS: ascorbic acid 500 mg Tablet 1000 MG PO ×2 (08:30→18:17)
[2020-07-12] MEDS: famotidine 20 mg Tablet PO ×2 (08:30→18:18)
[2020-07-12] MEDS: cholecalciferol (vitamin D3) 1,000 unit Tablet 1000 UNIT PO (08:31)
[2020-07-12] MEDS: ALPRAZolam 0.25 mg Tablet PO (08:31)
[2020-07-12] MEDS: doxycycline 100 mg Tablet PO ×2 (08:31→20:55)
--- NOTE | 2020-07-12 09:30 | PC.SOCIAL ---
Updated IMM Updated pt on Pg 2 IMM. No questions voiced. Provided pt a copy. Signed, dated, & timed copy in chart.
[2020-07-12 10:07] LABS: Alanine Aminotransferase 27 U/L (0-41); Albumin Level 3.1 g/dL (3.5-5.2); Alkaline Phosphatase 66 IU/L (40-130); Anion Gap 16.8 (5-19); Aspartate Amino Transferase 28 U/L (0-40); Blood Urea Nitrogen 21 mg/dL (8-23); Calcium 8.6 mg/dL (8.5-10.5); Carbon Dioxide 24 mmol/L (22-29); Chloride 102 mmol/L (98-107); Creatinine Clr Calc Pharmacy 90.3726; Globulin 2.8 g/dL (1.3-4.6); Glomerular Filtration Rate 85.5 mL/min (90-130); Glucose 107 mg/dL (65-115); Osmolality Calculated 291 mOsm/kg (285-295); Potassium 3.8 mmol/L (3.5-5.1); Sodium 139 mmol/L (136-145); Total Bilirubin 0.2 mg/dL (0.15-1.2); Total Protein 5.9 g/dL (6.6-8.7)
[2020-07-12 11:28] LABS: COMPLEMENT COMPONENT C3C 161 mg/dL (82-185); COMPLEMENT COMPONENT C4C 26 mg/dL (15-53)
[2020-07-12 12:03] LABS: COMPLEMENT, TOTAL (CH50) >60 U/mL (31-60)
[2020-07-12 12:40] LABS: Basophils % 0.3 %; Eosinophils # 0.1 10^3/uL (0.0-0.8); Eosinophils % 1.5 %; Hematocrit 35.5 % (42.0-52.0); Hemoglobin 12.2 g/dL (11.7-16.6); Lymphocytes # 0.8 10^3/uL (0.8-4.8); Mean Corpuscular HGB Conc 34.4 g/dL (30.0-36.0); Mean Corpuscular Hemoglobin 30.3 pg (28.0-34.0); Mean Corpuscular Volume 88.1 fL (80-94); Mean Platelet Volume 10.6 fL (7.4-10.4); Monocytes # 0.9 10^3/uL (0.2-0.9); Monocytes % 10.4 %; Neutrophils # 6.64 10^3/uL (1.8-7.7); Neutrophils % 77.2 %; Nucleated Red Blood Cells % 0 %; Platelet Count 309 10^3/cmm (130-400); Red Blood Count 4.03 10^6/uL (4.1-5.3); Red Cell Distribution Width 14.4 % (12.1-15.1); White Blood Count 8.6 10^3/uL (4.0-10.0)
[2020-07-12] MEDS: zinc gluconate 50 mg Tablet PO (13:08)
[2020-07-12 13:41] LABS: Erythrocyte Sedimentation Rate 100 mm/hr (0-10)
[2020-07-12] MEDS: HYDROmorphone 1 mg/mL INJ 1 mL 2 MG IVP ×2 (16:28→21:17)
[2020-07-12 17:02] LABS: RMSF IGG NOT DETECTED; RMSF IGM NOT DETECTED
--- NOTE | 2020-07-12 17:05 | P.PN_ITS ---
Subjective Subjective: Interval history: This is a 64-year-old male with history of rheumatoid arthritis, COPD, smoking use, chronic pain, hypertension, hyperlipidemia who presented to the ER with poor appetite, headache lightheadedness cough. He was admitted with atypical pneumonia. Infectious work-up including Lyme has been negative. His Rinvoq has been held. He is being treated with broad-spectrum antibiotics as well as doxycycline. Echocardiogram CT head ordered. He had an MRI completed today. This was reviewed with neurology. Patient is having episodes of high-grade fevers with change in mental status. An LP has been ordered. The patient is on anticoagulation this has been held. A WBC nuclear study has also been ordered. This has been reviewed with radiology. Suggestive of pneumonitis 07/08 Echo CONCLUSIONS LV systolic function is moderately reduced with EF of 35-40% Mildly reduced right ventricular function Mild mitral regurgitation Compared to prior echocardiogram from 06/02/2019, no significant changes are noted Medications: Reviewed: Yes Vitals/I&O/Wt Last Vital Signs Temp 98.2 F 07/12/20 15:01 Pulse 94 07/12/20 15:01 Resp 20 H 07/12/20 16:28 BP 130/86 07/12/20 15:01 Pulse Ox 98 07/12/20 15:01 07/12/20 07/12/20 07/12/20 06:59 14:59 22:59 Intake Total 700 / 1020 1180 / 1180 Output Total 800 / 1100 200 / 200 Balance -100 / -80 1180 / 1180 -200 / 980 Physical Exam Const: COMMON NORMALS: average body habitus and patient oriented x3 Resp: COMMON NORMALS: normal respiratory effort and No use of accessory muscles Cardio: COMMON NORMALS: regular rate and No murmurs present (Cardio) RATE: regular rate GI: COMMON NORMALS: Normal to inspection, nondistended, normoactive bowel sounds present and Soft to palpation PALPATION: Yes Soft to palpation Extremity: COMMON NORMALS: normal to inspection Neuro: COMMON NORMALS: patient oriented x3 Data : 07/12/20 12:10 07/12/20 04:34 Micro: Microbiology 07/10/20 17:59 Urine Culture - Final Urine,Clean Catch 07/06/20 12:42 Blood Culture - Final Blood NO GROWTH AFTER 5 DAYS 07/06/20 12:25 Blood Culture - Final Blood NO GROWTH AFTER 5 DAYS A&P Assessment and plan (1) Fever: Status: Acute (2) Atypical pneumonia: Status: Acute (3) Seropositive rheumatoid arthritis of multiple sites: Status: Acute Additional A&P Information #fever --on broad spectrum abx --echo completed --MRI brain discussed with Neurology ?previous injury --will check contrast study --check INR--> order LP --head ct prior ok, --tagged WBC scan ordered, suggested of pneumonitis --trend inflammatory markers #shakes --unclear etiology, pt has some confusion --will consider EEG, although does not appear post ictal #atypical pneumonia --on abx --continue nebs --doxy for tick bite #new onset afib --rate controlled --hold lovenox #systolic dysfunction CHF --EF 40% --euvolemic DVT:Lovenox held Attestations Medical Necessity Statement*: Herrera Quintana's hospital stay will require greater than 2 midnights for fevers Coding Level of Care 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
[2020-07-12 17:38] LABS: E. Chaffeensis AB IGG <1:64; E. Chaffeensis AB IGM <1:20
[2020-07-12] MEDS: lactobacillus 1 Tablet 1 TAB PO (18:18)
[2020-07-12 18:22] LABS: INR 1.03 (0.8-1.2)
[2020-07-12] MEDS: atorvastatin 40 mg Tablet PO (20:55)
--- NOTE | 2020-07-12 21:00 | PC.NURSE ---
Patient is completely disoriented at this time he is found to be febrile at 102 oral. Pt is instant that he wants to go to bed. Pt states that his head hurts. Pt's AC has been off in his room for an unknown amount of time and it is extremly hot in the patient's room. Pt is found stading in the room at this time and is stating over and over that he wants to go home and wants to go to bed. Pt removed all of his telemetry and refuses to wear it and was attempting to leave the room this nurse had to encourage the patient to get back into the bed. Pt has motrin 800 mg ordered which this nurse had to get from the pharmacy due to the pyxis being down for maintainanec. Dr. Porras notified of the patient's alteration in mentation and this nurses feelings that this patient needs to be transfered to the ICU due to the fact that the patient has had a significant change in condition. A one time additional order of tylenol was received and given. Pt is assisted to the bed and bed alarm set at this time.
[2020-07-13] VITALS (15 sets, daily range): BP systolic 109–143; BP diastolic 64–73; PULSE 63–110; RESP 14–53; TEMP 36.6–37.2; O2SAT 93–98
[2020-07-13] MEDS: HYDROmorphone 1 mg/mL INJ 1 mL 2 MG IVP ×2 (01:03→05:25)
[2020-07-13] MEDS: metoprolol tartrate 50 mg Tablet PO ×2 (03:31→16:43)
[2020-07-13] MEDS: linezolid 600 mg Tablet PO ×2 (03:31→16:43)
[2020-07-13] MEDS: ibuprofen 800 mg tablet PO (05:24)
[2020-07-13] MEDS: potassium chloride ER 10 mEq Tablet PO (06:06)
[2020-07-13] MEDS: acetaminophen 325 mg Tablet 650 MG PO ×3 (07:08→21:30)
[2020-07-13 07:54] LABS: Basophils % 0.3 %; Eosinophils # 0.1 10^3/uL (0.0-0.8); Eosinophils % 1.3 %; Hemoglobin 11.8 g/dL (11.7-16.6); Lymphocytes % 10.9 %; Mean Corpuscular HGB Conc 33.7 g/dL (30.0-36.0); Mean Corpuscular Hemoglobin 29.8 pg (28.0-34.0); Mean Corpuscular Volume 88.4 fL (80-94); Mean Platelet Volume 10.5 fL (7.4-10.4); Monocytes # 1.7 10^3/uL (0.2-0.9); Monocytes % 18.8 %; Neutrophils # 6.02 10^3/uL (1.8-7.7); Neutrophils % 67.1 %; Nucleated Red Blood Cells % 0 %; Platelet Count 323 10^3/cmm (130-400); Red Blood Count 3.96 10^6/uL (4.1-5.3); Red Cell Distribution Width 14.6 % (12.1-15.1)
[2020-07-13] MEDS: tamsulosin 0.4 mg Capsule PO ×2 (08:15→20:45)
[2020-07-13] MEDS: ascorbic acid 500 mg Tablet 1000 MG PO ×2 (08:15→18:17)
[2020-07-13] MEDS: famotidine 20 mg Tablet PO ×2 (08:16→18:17)
[2020-07-13] MEDS: lactobacillus 1 Tablet 1 TAB PO ×2 (08:16→18:17)
[2020-07-13] MEDS: cholecalciferol (vitamin D3) 1,000 unit Tablet 1000 UNIT PO (08:16)
[2020-07-13] MEDS: doxycycline 100 mg Tablet PO ×2 (08:16→20:45)
[2020-07-13 08:19] LABS: Alanine Aminotransferase 28 U/L (0-41); Albumin Level 3.3 g/dL (3.5-5.2); Alkaline Phosphatase 75 IU/L (40-130); Aspartate Amino Transferase 29 U/L (0-40); Blood Urea Nitrogen 22 mg/dL (8-23); Calcium 9.1 mg/dL (8.5-10.5); Carbon Dioxide 25 mmol/L (22-29); Chloride 102 mmol/L (98-107); Creatinine Clr Calc Pharmacy 81.3354; Globulin 3.6 g/dL (1.3-4.6); Glomerular Filtration Rate 75.7 mL/min (90-130); Glucose 96 mg/dL (65-115); Osmolality Calculated 287 mOsm/kg (285-295); Sodium 137 mmol/L (136-145); Total Bilirubin 0.3 mg/dL (0.15-1.2); Total Protein 6.9 g/dL (6.6-8.7)
[2020-07-13 08:25] LABS: INR 1.02 (0.8-1.2)
[2020-07-13 08:38] LABS: Ferritin 4559 ng/mL (30-400)
--- NOTE | 2020-07-13 08:49 | FL_ITS ---
WS: [id number] LUMBAR PUNCTURE UNDER FLUOROSCOPY: OBTAIN CSF FOR ANALYSIS HISTORY: fever of unknown origin COMPARISON: None available. FLUOROSCOPY TIME: .7 minutes. Procedure, complications, and risk and benefits explained to the patient. Consent was obtained. Conse nt is obtained showing the patient at high dose of ibuprofen today. Patient was consented with the el evated risk of bleeding. Recent laboratory work and medication are reviewed prior to procedure. Skin over the lumbar is cleansed with ChloraPrep and anesthetized with 1% buffered lidocaine. Access into the thecal sac is achieved. CSF is removed in a sterile manner and placed in the sterile tubes. Approximately 12 ml is removed without difficulty. CSF is clear. No complications are encountered. CSF this into the laboratory for analysis as requested. FL/FL guided lumbarpunc dx* [id number] IMPRESSION: Uncomplicated lumbar puncture for CSF.
[2020-07-13] MEDS: sodium chloride 0.9% 1,000 ML 50 ML IV (09:50)
--- NOTE | 2020-07-13 11:50 | PC.NURSE ---
Call placed to anesthesia to request placement of central line.
[2020-07-13 13:03] LABS: CENTROMERE B ANTIBODY <1.0 NEG AI (<1.0 NEG); JO-1 ANTIBODY <1.0 NEG AI (<1.0 NEG); RNP ANTIBODY <1.0 NEG AI (<1.0 NEG); SCL-70 ANTIBODY <1.0 NEG AI (<1.0 NEG); SJOGREN'S ANTIBODY (SS-A) <1.0 NEG AI (<1.0 NEG); SM ANTIBODY <1.0 NEG AI (<1.0 NEG); SS-B <1.0 NEG AI (<1.0 NEG)
[2020-07-13] MEDS: zinc gluconate 50 mg Tablet PO (13:18)
--- NOTE | 2020-07-13 14:01 | P.PN_ITS ---
Subjective Subjective: Interval history: Patient was examined this morning, he is alert oriented x3, follows all commands, no nausea, no vomiting, no headache, blurry vision, no neck pain, no neck stiffness, he continues to have fevers, T-max 103.9 last night, he has been on broad-spectrum antibiotic therapy, the plan is to perform a lumbar puncture on him this morning, however patient did receive 800 mg of ibuprofen overnight for his fever I advised patient that as he is undergoing a lumbar puncture, and he is taken high-dose ibuprofen, he has was advised of his increased risk including but not limited to increased risk of bleeding, 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 However he continues to have fevers, and the source of this fever is unknown, and the neck step would be to perform a lumbar puncture, as he has been on broad-spectrum antibiotic therapy, is immunocompromised, has been on rinvoq, and we do not have a good source for his elevated inflammatory markers, fevers. Discussed the risks and benefits, he voiced understanding, all questions answered, agreed to proceed with lumbar puncture understanding risks. Vitals/I&O/Wt Last Vital Signs Temp 98.1 F 07/13/20 10:54 Pulse 67 07/13/20 10:54 Resp 18 07/13/20 10:54 BP 121/73 07/13/20 10:54 Pulse Ox 98 07/13/20 10:54 07/12/20 07/13/20 07/13/20 22:59 06:59 14:59 Intake Total 700 / 1880 440 / 2320 360 / 360 Output Total 775 / 775 400 / 1175 400 / 400 Balance -75 / 1105 40 / 1145 -40 / -40 Weight last 48 hrs Weight 81.647 kg Physical Exam Const: COMMON NORMALS: no acute distress and patient oriented x3 Resp: COMMON NORMALS: normal respiratory effort, No retractions, No use of accessory muscles and clear to auscultation bilaterally AUSCULTATION: clear to auscultation bilaterally Cardio: COMMON NORMALS: regular rate, regular rhythm, S1 normal heart sound present and S2 normal heart sound present RATE: regular rate RHYTHM: regular rhythm HEART SOUNDS: S1 normal heart sound present and S2 normal heart sound present GI: COMMON NORMALS: Normal to inspection, nondistended, normoactive bowel sounds present, Soft to palpation, non-tender, No hepatosplenomegaly present, no masses and no bruits PALPATION: Yes Soft to palpation and Yes No hepatosplenomegaly present Extremity: COMMON NORMALS: no pedal edema Neuro: COMMON NORMALS: patient oriented x3 Psych: COMMON NORMALS: mental status grossly normal Data : 07/13/20 07:25 07/13/20 07:25 A&P Assessment and plan (1) Fever: Status: Acute (2) Atypical pneumonia: -Patient is immunocompromised, on chronic steroids, on Rinvoq -Received both doses of the Covid vaccine -Rapid Covid negative, influenza negative -Sepsis criteria met on admission, temp 100.4, white blood cell count 13.6, blood pressures 80s over 70s, improving with fluids, D-dimer 3.91, creatinine 1.3 -Currently T-max 100.9, ESR 100, ferritin 4559, CRP 167, pro-Nikunj 0.6 -CT angiogram of the chest shows peripheral groundglass opacities, Covid test negative, rapid flu negative -Echocardiogram does not show significant valvular vegetations, blood cultures are unremarkable, will hold off on transesophageal echocardiogram - had a tick bite -Sputum cultures, blood cultures, urine cultures are negative -Left knee no significant evidence of septic arthritis as per orthopedic service -Mendes scan, CT scan of the chest shows foci of groundglass infiltration interstitial thickening in the right upper lobe, left axillar lymphadenopathy -Tagged white blood cell scan shows very mild increased uptake in the lungs suggesting mild pneumonitis -Ovoid cystic cavity with mild increased signal in the LEFT temporal lobe with adjacent temporal lobe increased T2 signal. Additional subcortical white matter hyperintensity in the LEFT frontal lobe. No mass effect. With patient's history of mental status changes cerebritis or developing brain abscess may be present although there is not a lot of inflammation. Consider Lyme disease also. -However after discussion with neurology, they feel that this is likely scarring rather than a brain abscess -TB QuantiFERON -HIV, hep C negative -CMV, EBV acute antigen is negative -Ehrlichia panel negative -Galactomannan pending -Covid panel negative, flu panel negative, respiratory viral panel negative, adenovirus negative -Continues to have fevers, as high as 103, improving with Tylenol -Has been on Zyvox, Primaxin since hospital admission Plan: -We will order MRI brain with contrast -Follow cultures -Continue Zyvox, Zosyn, doxycycline -Given persistent fevers, after discussion the risk and benefits, patient voiced understanding, all questions answered, agreed to proceed with lumbar puncture -The other possibility is HLH -Monitor respiratory status closely, monitor vitals closely -Gentle IV hydration, avoid fluid overload -Continue albuterol, Advair, will hold off on further steroids as patient is not actively wheezing -Oxygen protocol -Telemetry monitoring continue aspirin, statin -Full code -DVT prophylaxis on hold given LP Status: Acute (3) Seropositive rheumatoid arthritis of multiple sites: Status: Acute (4) New onset atrial fibrillation: -Continue metoprolol, Lovenox on hold Status: Acute Additional A&P Information #shakes --unclear etiology, pt has some confusion --will consider EEG, although does not appear post ictal #atypical pneumonia --on abx --continue nebs --doxy for tick bite #systolic dysfunction CHF --EF 40% --euvolemic DVT:Lovenox held Plan for today order MRI of the brain with contrast, lumbar puncture, continue to monitor respiratory status, will discuss with infectious disease Attestations Medical Necessity Statement*: Patient requires hospitalization, for recurrent fevers, 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
[2020-07-13 14:03] LABS: ANA SCREEN, IFA NEGATIVE (NEGATIVE)
--- NOTE | 2020-07-13 14:30 | MR_ITS ---
WS: [id number] MRI brain with contrast. MRI is performed of the brain with contrast to be ready conjunction with the noncontrast study from . Multiplanar sequences are performed pre and postcontrast. MultiHance 16 cc's IV injected. There is no evidence for cerebritis or enhancing mass within the brain. There is normal smooth dural enhancement. No meningeal enhancement. There is no hydrocephalus. No enhancement near the optic chias m. Dural venous sinuses are not normally patent. No significant sinus disease. Mastoid air cells are not enhancing. MR/MR head w con [id number] IMPRESSION: 1. No enhancing mass. 2. No cerebritis or meningeal enhancement.
[2020-07-13 15:53] LABS: THYROID PEROXIDASE ANTIBODIES 2 IU/mL (<9)
--- NOTE | 2020-07-13 16:01 | PC.NURSE ---
NOTIFIED PHYSICIAN REGARDING PATIENTS ANXIETY UPON RETURN TO THE FLOOR FROM LUMBAR PUNCTURE, RECEIVED ORDER FOR 1MG IVP ATIVAN ONCE.
[2020-07-13 16:08] LABS: Glucose CSF 61 mg/dL (40-70); Total Protein CSF 47 mg/dL (15-45)
[2020-07-13] MEDS: LORazepam 2 mg/mL INJ 1 mL 1 MG IVP (16:11)
[2020-07-13 16:26] LABS: CSF Mononuclear # 0.003 10^3/uL (50-90); Mononuclear WBC CSF % 100 % (50-90); Polynuclear WBC CSF % 0 % (0-10); Red Blood Cell CSF 0 10^3/uL (0-0); White Blood Cell CSF 3 /uL (0-5)
[2020-07-13 17:36] LABS: Appearance CSF CLEAR (CLEAR); Color CSF COLORLESS (COLORLESS)
[2020-07-13] MEDS: morphine 4 mg/mL SDV 1 mL 2 MG IVP (20:45)
[2020-07-13] MEDS: atorvastatin 40 mg Tablet PO (20:45)
[2020-07-13 22:45] LABS: Magnesium 1.6 mg/dL (1.7-2.3)
--- NOTE | 2020-07-13 22:52 | PC.NURSE ---
Pt is having increased cardiac ectopy. Pt is having frequent multifocal pvcs as well as couplets and a 4 beat run of Vtach. Spoke with Dr. Porras and requested a Mag level. received results of Mag being 1.6. Notified Dr. Porras and awaiting further orders at this time.
[2020-07-14] VITALS (14 sets, daily range): BP systolic 106–187; BP diastolic 63–82; PULSE 56–120; RESP 14–22; TEMP 36.9–37.7; O2SAT 95–98
[2020-07-14 01:43] LABS: DNA AB (DS) CRITHIDIA,IFA NEGATIVE (NEGATIVE)
[2020-07-14] MEDS: metoprolol tartrate 50 mg Tablet PO ×2 (03:14→15:49)
[2020-07-14] MEDS: linezolid 600 mg Tablet PO ×2 (03:14→15:49)
[2020-07-14] MEDS: acetaminophen 325 mg Tablet 650 MG PO ×4 (03:14→21:49)
[2020-07-14 04:04] LABS: Basophils % 0.3 %; Eosinophils % 0.3 %; Hematocrit 35.6 % (42.0-52.0); Hemoglobin 12.1 g/dL (11.7-16.6); Lymphocytes # 1.5 10^3/uL (0.8-4.8); Lymphocytes % 14.4 %; Mean Corpuscular Hemoglobin 29.4 pg (28.0-34.0); Mean Corpuscular Volume 86.6 fL (80-94); Mean Platelet Volume 10.4 fL (7.4-10.4); Monocytes % 19.1 %; Neutrophils # 6.78 10^3/uL (1.8-7.7); Neutrophils % 64.9 %; Nucleated Red Blood Cells % 0 %; Platelet Count 358 10^3/cmm (130-400); Red Blood Count 4.11 10^6/uL (4.1-5.3); Red Cell Distribution Width 14.5 % (12.1-15.1); White Blood Count 10.4 10^3/uL (4.0-10.0)
[2020-07-14 04:27] LABS: Alanine Aminotransferase 28 U/L (0-41); Albumin Level 3.3 g/dL (3.5-5.2); Alkaline Phosphatase 81 IU/L (40-130); Anion Gap 17.2 (5-19); Aspartate Amino Transferase 29 U/L (0-40); Blood Urea Nitrogen 18 mg/dL (8-23); C Reactive Protein 148.8 mg/L (0.0-4.9); Calcium 9.1 mg/dL (8.5-10.5); Carbon Dioxide 23 mmol/L (22-29); Chloride 100 mmol/L (98-107); Creatinine Clr Calc Pharmacy 81.3354; Globulin 3.6 g/dL (1.3-4.6); Glomerular Filtration Rate 75.7 mL/min (90-130); Glucose 95 mg/dL (65-115); Magnesium 1.9 mg/dL (1.7-2.3); Osmolality Calculated 284 mOsm/kg (285-295); Phosphorus 3.8 mg/dL (2.5-4.5); Potassium 4.2 mmol/L (3.5-5.1); Sodium 136 mmol/L (136-145); Total Bilirubin 0.4 mg/dL (0.15-1.2); Total Protein 6.9 g/dL (6.6-8.7)
[2020-07-14 04:31] LABS: INR 1.02 (0.8-1.2)
[2020-07-14 04:34] LABS: NT Pro B Type Natriuretic Pept 509 pg/mL (0-125); Procalcitonin 0.66 ng/mL (0-0.5)
[2020-07-14] MEDS: sodium chloride 0.9% 1,000 ML 50 ML IV (05:53)
[2020-07-14] MEDS: morphine 4 mg/mL SDV 1 mL 2 MG IVP ×2 (06:19→21:49)
[2020-07-14] MEDS: potassium chloride ER 10 mEq Tablet PO (06:19)
--- NOTE | 2020-07-14 08:51 | US_ITS ---
WS: [id number] ULTRASOUND SOFT TISSUES LEFT axilla. HISTORY: LEFT AXILLARY LYMPHADENOPATHY COMPARISON: None available. TECHNIQUE: 2-D and color Doppler imaging is submitted. Enlarged heterogeneous lymph node in the LEFT axilla corresponds to the abnormality seen on a prior c hest CT from 07/09/2020. Replacement of the normal fatty hilum. This lymph node measures 2.9 x 3.3 x 1 .7 cm. US/US soft tissue/extremity [id number] IMPRESSION: Enlarged LEFT axillary lymph node. Corresponds to the lymph node seen on CT fro m 07/09/2020.
[2020-07-14] MEDS: cholecalciferol (vitamin D3) 1,000 unit Tablet 1000 UNIT PO (09:21)
[2020-07-14] MEDS: famotidine 20 mg Tablet PO ×2 (09:22→18:01)
[2020-07-14] MEDS: doxycycline 100 mg Tablet PO ×2 (09:22→20:31)
[2020-07-14] MEDS: ascorbic acid 500 mg Tablet 1000 MG PO ×2 (09:22→18:00)
[2020-07-14] MEDS: lactobacillus 1 Tablet 1 TAB PO ×2 (09:22→18:00)
[2020-07-14] MEDS: tamsulosin 0.4 mg Capsule PO ×2 (09:23→20:31)
--- NOTE | 2020-07-14 11:22 | P.PN_ITS ---
Subjective Subjective: Interval history: Patient is telling me he is overall doing well this morning, no fevers overnight, did have a temp of 99.9 this morning, no nausea, no vomiting, is having slight headache, no neck pain, no neck stiffness, no abdominal pain, no chest pain, no shortness of breath, not requiring the oxygen, no dysuria, no hematuria, no diarrhea, he tolerated lumbar puncture well yesterday, currently no signs of bleeding, he is try to lie flat as best as he can, but was a bit restless overnight Vitals/I&O/Wt Last Vital Signs Temp 98.8 F 07/14/20 08:00 Pulse 95 07/14/20 08:56 Resp 16 07/14/20 08:56 BP 118/72 07/14/20 08:00 Pulse Ox 97 07/14/20 08:56 07/13/20 07/14/20 07/14/20 22:59 06:59 14:59 Intake Total 180 / 640 1252 / 1892 0 / 0 Balance 180 / 240 1252 / 1492 0 / 0 Weight last 48 hrs Weight 81.647 kg Physical Exam Const: COMMON NORMALS: no acute distress and patient oriented x3 Resp: COMMON NORMALS: normal respiratory effort, No retractions, No use of accessory muscles and clear to auscultation bilaterally AUSCULTATION: clear to auscultation bilaterally Cardio: COMMON NORMALS: regular rate, regular rhythm, S1 normal heart sound present and S2 normal heart sound present RATE: regular rate RHYTHM: regular rhythm HEART SOUNDS: S1 normal heart sound present and S2 normal heart sound present GI: COMMON NORMALS: Normal to inspection, nondistended, normoactive bowel sounds present, Soft to palpation, non-tender, No hepatosplenomegaly present, no masses and no bruits PALPATION: Yes Soft to palpation and Yes No hepatosplenomegaly present Extremity: COMMON NORMALS: capillary refill normal, no clubbing, cyanosis or edema, no calf tenderness and no pedal edema Neuro: COMMON NORMALS: patient oriented x3 Psych: COMMON NORMALS: mental status grossly normal Data : 07/14/20 03:20 07/14/20 03:20 Micro: Microbiology 07/12/20 20:32 Urine Culture - Preliminary Urine,Clean Catch 07/09/20 09:52 Blood Culture - Final Blood NO GROWTH AFTER 5 DAYS 07/09/20 09:45 Blood Culture - Final Blood NO GROWTH AFTER 5 DAYS 07/13/20 15:36 Cryptococcal Antigen - Final Cerebrospinal Fluid 07/13/20 15:37 Gram Stain - Final Cerebrospinal Fluid A&P Assessment and plan (1) Fever: Status: Acute (2) Atypical pneumonia: -Patient is immunocompromised, on chronic steroids, on Rinvoq -Received both doses of the Covid vaccine -Rapid Covid negative, influenza negative -Sepsis criteria met on admission, temp 100.4, white blood cell count 13.6, blood pressures 80s over 70s, improving with fluids, D-dimer 3.91, creatinine 1.3 -Currently T-max 99.9, ESR 100, ferritin 4559, CRP 167, pro-Nikunj 0.6 -CT angiogram of the chest shows peripheral groundglass opacities, Covid test negative, rapid flu negative -Echocardiogram does not show significant valvular vegetations, blood cultures are unremarkable, will hold off on transesophageal echocardiogram - had a tick bite -Sputum cultures, blood cultures, urine cultures are negative -Left knee no significant evidence of septic arthritis as per orthopedic service -Bilateral lower extremity venous ultrasound negative for DVT -Mendes scan, CT scan of the chest shows foci of groundglass infiltration interstitial thickening in the right upper lobe, left axillar lymphadenopathy -Tagged white blood cell scan shows very mild increased uptake in the lungs suggesting mild pneumonitis -Ovoid cystic cavity with mild increased signal in the LEFT temporal lobe with adjacent temporal lobe increased T2 signal. Additional subcortical white matter hyperintensity in the LEFT frontal lobe. No mass effect. With patient's history of mental status changes cerebritis or developing brain abscess may be present although there is not a lot of inflammation. Consider Lyme disease also. -However after discussion with neurology, they feel that this is likely scarring rather than a brain abscess -MRI brain with contrast showed no enhancing mass, no cerebral-itis, no meningeal enhancement -Lumbar puncture performed yesterday, was lackluster, clear, colorless, 3 WBCs, no RBCs, glucose 61, protein 47, Gram stain WBCs, no organisms -TB QuantiFERON -HIV, hep C negative -CMV, EBV acute antigen is negative -Ehrlichia panel negative -Galactomannan pending -Covid panel negative, flu panel negative, respiratory viral panel negative, adenovirus negative -Low-grade fever this morning 99.9 -Has been on Zyvox, Primaxin since hospital admission -Fever of unknown origin Plan: -Follow cultures, if LP cultures negative in 24 hours will discharge home -Send out LP studies pending, follow-up with infectious disease -We will need to follow-up with hematology oncology -We will need to follow-up with rheumatology -Continue Zyvox, Zosyn, doxycycline -Left slurry lymphadenopathy, seen on ultrasound, spoke to Dr. Marinelli, advised that likely needs to be biopsied to evaluate for lymphoma, certainly not urgently required, spoke to Dr. Drew, he will follow-up next week with Dr. Laguna for a left axillary lymph node biopsy -Monitor respiratory status closely, monitor vitals closely -Hold fluids -Continue albuterol, Advair, will hold off on further steroids as patient is not actively wheezing -Oxygen protocol -Telemetry monitoring continue aspirin, statin -Full code -DVT resume therapeutic Lovenox at 6 PM tonight Plan for today continue antibiotics, continue to monitor clinical status, continue to monitor mentation, monitor for headaches, likely discharge tomorrow Status: Acute (3) Seropositive rheumatoid arthritis of multiple sites: Status: Acute (4) New onset atrial fibrillation: -Continue metoprolol, Lovenox on hold Status: Acute Additional A&P Information #shakes --unclear etiology, pt has some confusion --will consider EEG, although does not appear post ictal #atypical pneumonia --on abx --continue nebs --doxy for tick bite #systolic dysfunction CHF --EF 40% --euvolemic DVT:Lovenox held Plan for today order MRI of the brain with contrast, lumbar puncture, continue to monitor respiratory status, will discuss with infectious disease Attestations Medical Necessity Statement*: Patient requires hospitalization, for recurrent fevers, afib Coding Level of Care Code 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 Diagnoses Fever R50.9 Atypical pneumonia J18.9 Seropositive rheumatoid arthritis of multiple sites M05.79 New onset atrial fibrillation I48.91
--- NOTE | 2020-07-14 12:05 | PC.SOCIAL ---
Updated IMM Updated pt on Pg 2 IMM. No questions voiced. Provided pt a copy. Signed, dated, & timed copy in chart.
[2020-07-14 12:37] LABS: Lactate Dehydrogenase 274 U/L (135-225)
[2020-07-14] MEDS: zinc gluconate 50 mg Tablet PO (12:53)
[2020-07-14] MEDS: enoxaparin 100 mg/mL Syringe 80 MG SUBCUT (18:01)
[2020-07-14] MEDS: atorvastatin 40 mg Tablet PO (20:31)
[2020-07-14 22:14] LABS: Aspergillus AG,EIA,Serum NOT DETECTED; Aspergillus Galactomannan Inde <0.50
[2020-07-15] VITALS (9 sets, daily range): BP systolic 119–126; BP diastolic 54–77; PULSE 51–114; RESP 14–22; TEMP 36.7–38.5; O2SAT 94–98
[2020-07-15] MEDS: acetaminophen 325 mg Tablet 650 MG PO ×2 (03:20→09:07)
[2020-07-15] MEDS: linezolid 600 mg Tablet PO (03:20)
[2020-07-15] MEDS: morphine 4 mg/mL SDV 1 mL 2 MG IVP (03:20)
[2020-07-15] MEDS: metoprolol tartrate 50 mg Tablet PO (03:20)
[2020-07-15 06:01] LABS: Basophils # 0.1 10^3/uL (0.0-0.1); Basophils % 0.5 %; Eosinophils % 0.3 %; Hematocrit 34.3 % (42.0-52.0); Hemoglobin 11.7 g/dL (11.7-16.6); Lymphocytes # 1.3 10^3/uL (0.8-4.8); Lymphocytes % 10.4 %; Mean Corpuscular HGB Conc 34.1 g/dL (30.0-36.0); Mean Corpuscular Hemoglobin 29.5 pg (28.0-34.0); Mean Corpuscular Volume 86.4 fL (80-94); Mean Platelet Volume 10.3 fL (7.4-10.4); Monocytes # 1.9 10^3/uL (0.2-0.9); Monocytes % 14.8 %; Neutrophils # 9.16 10^3/uL (1.8-7.7); Neutrophils % 72.8 %; Nucleated Red Blood Cells % 0 %; Platelet Count 386 10^3/cmm (130-400); Red Blood Count 3.97 10^6/uL (4.1-5.3); Red Cell Distribution Width 14.5 % (12.1-15.1); White Blood Count 12.6 10^3/uL (4.0-10.0)
[2020-07-15] MEDS: enoxaparin 100 mg/mL Syringe 80 MG SUBCUT (06:07)
[2020-07-15 06:09] LABS: INR 1.07 (0.8-1.2)
[2020-07-15] MEDS: potassium chloride ER 10 mEq Tablet PO (06:10)
[2020-07-15 06:25] LABS: NT Pro B Type Natriuretic Pept 366 pg/mL (0-125); Procalcitonin 0.45 ng/mL (0-0.5)
[2020-07-15 06:36] LABS: Alanine Aminotransferase 38 U/L (0-41); Albumin Level 3.4 g/dL (3.5-5.2); Alkaline Phosphatase 92 IU/L (40-130); Anion Gap 20.7 (5-19); Aspartate Amino Transferase 39 U/L (0-40); Blood Urea Nitrogen 18 mg/dL (8-23); C Reactive Protein 142.5 mg/L (0.0-4.9); Calcium 8.9 mg/dL (8.5-10.5); Carbon Dioxide 21 mmol/L (22-29); Chloride 102 mmol/L (98-107); Creatinine Clr Calc Pharmacy 81.3354; Globulin 3.5 g/dL (1.3-4.6); Glomerular Filtration Rate 75.7 mL/min (90-130); Glucose 94 mg/dL (65-115); Osmolality Calculated 292 mOsm/kg (285-295); Phosphorus 3.7 mg/dL (2.5-4.5); Potassium 3.7 mmol/L (3.5-5.1); Sodium 140 mmol/L (136-145); Total Bilirubin 0.5 mg/dL (0.15-1.2); Total Protein 6.9 g/dL (6.6-8.7)
[2020-07-15] MEDS: famotidine 20 mg Tablet PO (09:06)
[2020-07-15] MEDS: ascorbic acid 500 mg Tablet 1000 MG PO (09:06)
[2020-07-15] MEDS: cholecalciferol (vitamin D3) 1,000 unit Tablet 1000 UNIT PO (09:06)
[2020-07-15] MEDS: lactobacillus 1 Tablet 1 TAB PO (09:06)
[2020-07-15] MEDS: doxycycline 100 mg Tablet PO (09:06)
[2020-07-15] MEDS: tamsulosin 0.4 mg Capsule PO (09:06)
--- NOTE | 2020-07-15 09:58 | PC.NURSE ---
Pt sitting on the side of the bed talking to staff. Pt afebrile, A&O x4, Pt had no c/o pain or discomfort at the present time. Call light in reach. Will continue to monitor.
[2020-07-15] MEDS: zinc gluconate 50 mg Tablet PO (10:55)
--- NOTE | 2020-07-15 11:31 | PM.CONSULT ---
Providers/Reason For Consult Consulting Physician/Specialty*: Oracio Laguna MD Reason for Consult*: Lymph node biopsy Requesting Physician: Dr. Collins Attending Physician: Nitesh Yu MD Primary Care Provider: Debbie Cardoso MD History of Present Illness History of Present Illness Herrera Quintana is a 64 year old male Meds/Allergies Home Medications and Allergies Home Medications Medication Instructions Recorded Confirmed Last Taken Type sildenafil 50 mg tablet 50 mg PO PRN PRN tab 03/17/19 07/06/20 07/11/19 History albuterol sulfate 90 mcg/actuation 1 - 2 puff INHALATION Q6H PRN 30 05/20/19 07/06/20 05/27/20 Rx aerosol inhaler Days #18 gm budesonide-formoterol HFA 80 2 puff INHALATION Q12H 30 Days 05/20/19 07/06/20 05/27/20 Rx mcg-4.5 mcg/actuation aerosol #10.2 gm inhaler aspirin 81 mg tablet,delayed 81 mg PO DAILY@06/29/19 07/06/20 07/04/20 History release calcium carbonate 600 mg calcium 600 mg PO DAILY@12/22/19 07/06/20 07/04/20 History (1,500 mg) tablet oxycodone 5 mg tablet 5 mg PO .5 times a day PRN 30 Days 05/25/20 07/06/20 07/04/20 Rx #150 tab amitriptyline 25 mg PO BEDTIME@2200 05/28/20 07/06/20 07/04/20 History cyclobenzaprine 10 mg PO TID PRN 05/28/20 07/06/20 05/28/20 History esomeprazole magnesium 40 mg PO DAILY@05/28/20 07/06/20 07/04/20 History hydrochlorothiazide 25 mg PO DAILY@05/28/20 07/06/20 07/04/20 History losartan 25 mg PO DAILY@05/28/20 07/06/20 07/04/20 History potassium chloride 10 meq PO DAILY@05/28/20 07/06/20 07/04/20 History prednisone 5 mg PO DAILY@05/28/20 07/06/20 07/04/20 History prednisone 10 mg PO DAILY PRN 05/28/20 07/06/2005/27/21 History tamsulosin 0.4 mg PO Q12H 05/28/20 07/06/20 07/04/20 History DME: Walker #1 ea 07/04/20 07/06/20 Unknown Rx Allergy Relief (fluticasone) 1 - 2 spray INTRANASAL DAILY PRN 07/06/20 07/06/20 Unknown History carvedilol 6.25 mg PO BID@0700,2200 07/06/20 07/06/20 07/04/20 History magnesium 100 mg PO DAILY@07 PRN 07/06/20 07/06/20 Unknown History upadacitinib [Rinvoq] 15 mg PO DAILY@07 07/06/20 07/06/20 07/04/20 History Allergies Allergy/AdvReac Type Severity Reaction Status Date / Time Penicillins Allergy Unknown Verified 07/06/20 12:50 Current Medications Current Medications Generic Name Dose Route Start Last Admin Trade Name Freq PRN Reason Stop Dose Admin Acetaminophen 650 mg 07/10/20 11:34 07/15/20 09:07 Acetaminophen 325 Mg Tablet PO 650 mg Q6H PRN Administration FEVER >100.4 Albuterol Sulfate 2.5 mg 07/06/20 17:30 07/14/20 19:42 Albuterol 2.5 Mg/0.5 Ml Neb INHALATION 2.5 mg Q4H.RESPIRATORY PRN Administration SHORTNESS OF BREATH Ascorbic Acid 1,000 mg 07/06/20 18:00 07/15/20 09:06 Ascorbic Acid 500 Mg Tablet PO 1,000 mg BID CIRILO Administration Atorvastatin Calcium 40 mg 07/06/20 21:00 07/14/20 20:31 Atorvastatin 40 Mg Tablet PO 40 mg BEDTIME CIRILO Administration Benzonatate 100 mg 07/08/20 03:47 07/08/20 05:03 Benzonatate 100 Mg Capsule PO 100 mg Q8H PRN Administration COUGH Doxycycline Monohydrate 100 mg 07/11/20 08:00 07/15/20 09:06 Doxycycline 100 Mg Tablet PO 100 mg Q12H CIRILO Administration Enoxaparin Sodium 80 mg 07/14/20 18:00 07/15/20 06:07 Enoxaparin 100 Mg/Ml Syringe 1 mg/kg (80 mg) 80 mg SUBCUT Administration Q12H [facility] Famotidine 20 mg 07/06/20 18:00 07/15/20 09:06 Famotidine 20 Mg Tablet PO 20 mg BID CIRILO Administration Imipenem/Cilastatin Sodium 500 100 mls @ 200 mls/hr 07/06/20 18:00 07/15/20 06:41 mg/ Sodium Chloride IV Infused Q6H CIRILO Infusion Protocol Lactobacillus Acidophilus 1 tab 07/12/20 18:00 07/15/20 09:06 Lactobacillus 1 Tablet PO 1 tab BID CIRILO Administration Linezolid 600 mg 07/11/20 15:30 07/15/20 03:20 Linezolid 600 Mg Tablet PO 600 mg Q12H CIRILO Administration Metoprolol Tartrate 50 mg 07/11/20 03:30 07/15/20 03:20 Metoprolol Tartrate 50 Mg Tablet PO 50 mg Q12H CIRILO Administration Morphine Sulfate 2 mg 07/13/20 20:34 07/15/20 03:20 Morphine 4 Mg/Ml Sdv 1 Ml IVP 2 mg Q6H PRN Administration SEVERE PAIN Potassium Chloride 10 meq 07/07/20 07:00 07/15/20 06:10 Potassium Chloride Er 10 Meq Tablet PO 10 meq DAILY@07 CIRILO Administration Fluticasone/Salmeterol 1 puff 07/06/20 20:00 07/15/20 09:07 Fluticasone-Salmeterol 250-50 Diskus INHALATION 1 puff BID.RESPIRATORY CIRILO Administration Tamsulosin HCl 0.4 mg 07/06/20 20:00 07/15/20 09:06 Tamsulosin 0.4 Mg Capsule PO 0.4 mg Q12H CIRILO Administration Vitamin D 1,000 unit 07/07/20 09:00 07/15/20 09:06 Cholecalciferol (Vitamin D3) 1,000 Unit Tablet PO 1,000 unit DAILY CIRILO Administration Zinc Gluconate 50 mg 07/11/20 11:00 07/15/20 10:55 Zinc Gluconate 50 Mg Tablet PO 50 mg DAILY@1100 CIRILO Administration PFSH Acute PFSH: Medical History BPH (benign prostatic hyperplasia) BPH loc w urin obs/LUTS Cervical arthritis CHF (congestive heart failure) Chronic radicular low back pain COPD (chronic obstructive pulmonary disease) DDD (degenerative disc disease) Encounter for long-term opiate analgesic use Erectile dysfunction Fatigue GERD (gastroesophageal reflux disease) H/O chronic active hepatitis Insomnia Rheumatoid arthritis Seropositive rheumatoid arthritis of multiple sites Trigger finger of left hand Surgical History H/O arthroscopic knee surgery left -2018 H/O hemorrhoidectomy H/O repair of rotator cuff Bilateral rt. 2009 left 2016 H/O submucous nasal surgery History of ear surgery History of facial surgery History of laminectomy Lumbar Status post colonoscopy (07/15/19) Repeat in 10 years Family History Father Hypertension Heart disease Diabetes Cancer colon cancer Mother Hypertension Stroke Sister Hypertension Liver disease Brother Hypertension Family/Other Heart disease [employer] [employer] Cancer PROSTATE-UNCLE Other Arthritis Denies family history of Anesthesia complication Bleeding disorder Social History Smoking and tobacco status: former smoker Quit status (tobacco): has quit using tobacco Year quit tobacco: 02/2019 Second hand smoke exposure: No Alcohol intake: former Year of sobriety/quit date alcohol: 2016 Desire information about alcohol rehabilitation?: No Desire information about substance/drug rehabilitation?: No History of recent travel: No Sexually active: Yes Current gender identity: Male Vitals/I&O/Wt Last Vital Signs Temp 98.1 F 07/15/20 10:44 Pulse 76 07/15/20 10:44 Resp 18 07/15/20 10:44 BP 123/65 07/15/20 10:44 Pulse Ox 98 07/15/20 10:44 07/14/20 07/15/20 07/15/20 22:59 06:59 14:59 Intake Total 660 / 1000 1065.833 / 2065.833 240 / 240 Output Total 845 / 1485 450 / 1935 200 / 200 Balance -185 / -485 615.833 / 130.833 40 / 40 Data Micro: Micro: Microbiology 07/13/20 15:37 Gram Stain - Final Cerebrospinal Flu id CSF Culture - Prel iminary 07/12/20 20:32 Urine Culture - Fi nal Urine,Clean Catch 07/09/20 09:52 Blood Culture - Fi nal Blood NO GROWTH AFTER 5 DAYS 07/09/20 09:45 Blood Culture - Fi nal Blood NO GROWTH AFTER 5 DAYS 07/13/20 15:36 Cryptococcal Antig en - Final Cerebrospinal Flu id Coding Level of Care Code Acute [employer]
--- NOTE | 2020-07-15 11:56 | P.DS_ITS ---
Discharge Providers Date of Admission: 07/07/20 16:15 Date of Discharge: July 15, 2020 Attending Provider at Admission: Nitesh Yu MD Attending Provider at Discharge: Nitesh Yu MD Primary Care Provider: Debbie Cardoso MD Diagnoses at Discharge Discharge Diagnosis (1) Fever: Status: Acute (2) Atypical pneumonia: Status: Acute (3) Seropositive rheumatoid arthritis of multiple sites: Status: Acute (4) New onset atrial fibrillation: Status: Acute Reason for Visit Reason for Visit: TOPETE/ COUGH/ WEAKNESS Hospital Course Hospital Course Herrera Quintana is a 64 year old male with a past medical history of rheumatoid arthritis on Rinvoq, COPD, current smoker, chronic pain on opiates, hypertension, hyperlipidemia, CHF, BPH who presents [facility] due to a 2-day history of fevers, chills, fatigue, malaise, cough, shortness of breath. Patient was admitted to [facility] for fevers, chills, fatigue, malaise, cough, shortness of breath. After an extensive work-up, etiology is unclear at this point, patient has fever of unknown origin, he was kept on broad-spectrum antibiotics throughout his hospitalization, Zyvox, Primaxin, doxycycline. Throughout his hospitalization, patient was nontoxic-appearing, although his ESR CRP in pro-Nikunj have been elevated but does have underlying rheumatoid arthritis, all cultures have been unremarkable. His fever curve did space out, and did decrease, he did have T-max of 104 on 07/11/2020, resulting in confusion, improved with Tylenol and ibuprofen, T-max before discharge was one 101.3 on 07/15/2020. Patient was discharged on high-dose Tylenol, ibuprofen for fevers, follow-ups and further work-up as below. On admission his there was concerns for atypical pneumonia as a source of his fevers, given his CT chest findings of ground glass opacities in the periphery, however he was kept on broad-spectrum antibiotics, his Covid was negative, respiratory panel negative, no respiratory complaints, no shortness of breath, no cough, on room air. Certainly Pneumocystis carinii is a possibility, his HIV status is negative. -Patient is immunocompromised, on chronic steroids, on Rinvoq -Received both doses of the Covid vaccine -Rapid Covid negative, influenza negative -Sepsis criteria met on admission, temp 100.4, white blood cell count 13.6, blood pressures 80s over 70s, improving with fluids, D-dimer 3.91, creatinine 1.3 -White blood cell count on discharge was 12.6, primarily neutrophilia, CRP 142.5, pro-Nikunj 0.45, blood pressure 123/65, pulse 76, respiratory 18, temp 98.1, 90% on room air, nontoxic-appearing, ready to go home -CT angiogram of the chest shows peripheral groundglass opacities, Covid test negative, rapid flu negative -Echocardiogram does not show significant valvular vegetations, blood cultures are unremarkable, will hold off on transesophageal echocardiogram - had a tick bite, tick panel negative, kept on doxycycline, discharged on doxycycline -Sputum cultures, blood cultures, urine cultures, lumbar puncture cultures are negative -Left knee no significant evidence of septic arthritis as per orthopedic service -Bilateral lower extremity venous ultrasound negative for DVT -Mendes scan, CT scan of the chest shows foci of groundglass infiltration interstitial thickening in the right upper lobe, left axillar lymphadenopathy -Tagged white blood cell scan shows very mild increased uptake in the lungs suggesting mild pneumonitis -Ovoid cystic cavity with mild increased signal in the LEFT temporal lobe with adjacent temporal lobe increased T2 signal. Additional subcortical white matter hyperintensity in the LEFT frontal lobe. No mass effect. With patient's history of mental status changes cerebritis or developing brain abscess may be present although there is not a lot of inflammation. Consider Lyme disease also. -However after discussion with neurology, they feel that this is likely scarring rather than a brain abscess -MRI brain with contrast showed no enhancing mass, no cerebral-itis, no meningeal enhancement -Lumbar puncture performed , was lackluster, clear, colorless, 3 WBCs, no RBCs, glucose 61, protein 47, Gram stain WBCs, no organisms, cultures so far negative -TB QuantiFERON negative -HIV, hep C negative -CMV, EBV acute antigen is negative -Ehrlichia panel negative -Galactomannan pending -Cryptococcus antigen negative -Covid panel negative, flu panel negative, respiratory viral panel negative, adenovirus negative -Labs sent out for CSF studies will be followed up with infectious disease -Does have left axillary lymph node lymphadenopathy, seen on ultrasound, seen by Dr. Laguna, follow-up with next for biopsy to evaluate for malignancy as a source -Hold Rinvoq, prednisone, follow up with rheuamtology -For fevers Tylenol and ibuprofen as prescribed -Monitor for fevers, monitor fever curve, if fevers exceed 103 come to the emergency room -If patient continues to have fevers, I would consider transferring him to a higher level center for more extensive and expedited work-up -Fever of unknown origin Patient had new onset A. fib during his hospitalization, on discharge he is still in A. fib, rate controlled, continue metoprolol 50 twice daily, Eliquis 5 mg daily on discharge Physical Exam Const: COMMON NORMALS: no acute distress and patient oriented x3 Neck/C-Spine: COMMON NORMALS: no JVD Resp: COMMON NORMALS: normal respiratory effort, No retractions, No use of accessory muscles and clear to auscultation bilaterally AUSCULTATION: clear to auscultation bilaterally Cardio: COMMON NORMALS: no JVD, regular rate, regular rhythm, S1 normal heart sound present and S2 normal heart sound present RATE: regular rate RHYTHM: regular rhythm HEART SOUNDS: S1 normal heart sound present and S2 normal heart sound present GI: COMMON NORMALS: Normal to inspection, nondistended, normoactive bowel sounds present, Soft to palpation, non-tender and No hepatosplenomegaly present PALPATION: Yes Soft to palpation and Yes No hepatosplenomegaly present Extremity: COMMON NORMALS: no pedal edema Neuro: COMMON NORMALS: patient oriented x3 Psych: COMMON NORMALS: mental status grossly normal Discharge Data Data Completed and Pending: Completed Studies During Hospitalization Category Date Time Status CT angio chest PE protcl [id number] Stat Cat Scan 07/06/20 13:[address] cervical spin wo con* [id number] Rout ine Cat Scan 07/09/20 13:[address] chest abd pel wo con Routine Cat Scan 07/09/20 13:[address] head wo con* 7 0450 Urgent Cat Scan 07/06/20 11:[address] knee LT wo con * [id number] Stat Cat Scan 07/08/20 10:[address] lumbar spine w o con* [id number] Routi ne Cat Scan 07/09/20 13:[address] thoracic spin wo con* [id number] Rout ine Cat Scan 07/09/20 13:41 Completed FL guided lumbarp unc dx* [id number] Rout ine Exams 07/13/20 08:49 Completed XR chest 1V paulette ble [id number] Routine Exams 07/10/20 17:42 Completed XR chest 1V paulette ble [id number] Urgent Exams 07/06/20 11:45 Completed MR head w con [id number] 52 Routine MRI 07/13/20 14:30 Completed MR head wo con* 7 [id number] Routine MRI 07/12/20 08:25 Completed NM CERETEC WBC sc an* [id number] Routine Nuc Med 07/11/20 17:25 Completed CV echo complete* [id number] Routine Ultrasound 07/08/20 11:23 [place] [id number] Routin e Ultrasound 07/09/20 09:48 Completed US soft tissue/ex tremity [id number] Stat Ultrasound 07/14/20 08:51 Completed Pending at discharge Category Date Time Status Adenosine Deamina se CSF Routine Lab 07/13/20 15:37 Received C Reactive Protei n AM LABS Lab 07/16/20 04:00 Ordered CSF Culture & Gra m Stain Stat Lab 07/13/20 15:37 Results CYTOMEGALOVIRUS D NA, QN, REAL Stat Lab 07/13/20 15:37 Received Complete Blood Co unt w/Auto AM LABS Lab 07/16/20 04:00 Ordered Comprehensive Met abolic Panel AM LA BS Lab 07/16/20 04:00 Ordered Herpes Simplex Vi naty DNA Stat Lab 07/13/20 15:37 Received Lymes Disease Ant ibodies CSF Stat Lab 07/13/20 15:37 Received Magnesium AM LABS Lab 07/16/20 04:00 Ordered Miscellaneous Katie t Routine Lab 07/06/20 17:15 Received Miscellaneous Katie t Routine Lab 07/13/20 15:37 Received Miscellaneous Katie t Routine Lab 07/13/20 15:37 Received Miscellaneous Katie t Routine Lab 07/13/20 15:37 Received Miscellaneous Katie t Routine Lab 07/13/20 15:37 Received Miscellaneous Katie t Routine Lab 07/13/20 15:37 Received Miscellaneous Katie t Routine Lab 07/13/20 15:37 Received Miscellaneous Katie t Routine Lab 07/14/20 11:50 Received Miscellaneous Katie t Stat Lab 07/13/20 15:36 Received NT Pro B Type Sylvia riuretic Pept QAM Lab 07/16/20 06:00 Ordered Oligoclonal Bands IGG, CSF Stat Lab 07/13/20 15:37 Received Phosphorus AM LAB S Lab 07/16/20 04:00 Ordered Procalcitonin AM LABS Lab 07/16/20 04:00 Ordered Prothrombin Time INR AM LABS Lab 07/16/20 04:00 Ordered [place] Enceph. Virus IFA CSF Stat Lab 07/13/20 15:37 Received VDRL on CSF Stat Lab 07/13/20 15:37 Received Viral Respiratory ,Rapid Cultur Stat Lab 07/06/20 21:27 Received West Nile Virus A B Panel,CSF Stat Lab 07/13/20 15:37 Received Labs from last 24 hours 07/15/20 07/15/20 07/15/20 04:26 04:26 04:26 WBC 12.6 H RBC 3.97 L Hgb 11.7 Hct 34.3 L MCV 86.4 MCH 29.5 MCHC 34.1 RDW 14.5 Plt Count 386 MPV 10.3 Neut % (Auto) 72.8 Lymph % (Auto) 10.4 [place] % (Auto) 14.8 Eos % (Auto) 0.3 Baso % (Auto) 0.5 Neut # (Auto) 9.16 H Lymph # (Auto) 1.3 [place] # (Auto) 1.9 H Eos # (Auto) 0.0 Baso # (Auto) 0.1 Nucleated RBC % (a uto) 0 Nucleated RBCs # 0.0 PT 14.30 INR 1.07 Sodium 140 Potassium 3.7 Chloride 102 Carbon Dioxide 21 L Anion Gap 20.7 H BUN 18 Creatinine 1.0 GFR Calculation 75.7 L Glucose 94 Calculated Osmolal ity 292 Calcium 8.9 Phosphorus 3.7 Magnesium 2.0 Total Bilirubin 0.5 AST 39 ALT 38 Alkaline Phosphata se 92 Lactate Dehydrogen ase C-Reactive Protein 142.5 H NT-Pro-B Natriuret Pep 366 H Total Protein 6.9 Albumin 3.4 L Globulin 3.5 Procalcitonin 0.45 A. galactomannan A g EIA A. galactomannan A g Idx 07/14/20 07/06/20 11:50 17:15 WBC RBC Hgb Hct MCV MCH MCHC RDW Plt Count MPV Neut % (Auto) Lymph % (Auto) [place] % (Auto) Eos % (Auto) Baso % (Auto) Neut # (Auto) Lymph # (Auto) [place] # (Auto) Eos # (Auto) Baso # (Auto) Nucleated RBC % (a uto) Nucleated RBCs # PT INR Sodium Potassium Chloride Carbon Dioxide Anion Gap BUN Creatinine GFR Calculation Glucose Calculated Osmolal ity Calcium Phosphorus Magnesium Total Bilirubin AST ALT Alkaline Phosphata se Lactate Dehydrogen ase 274 H C-Reactive Protein NT-Pro-B Natriuret Pep Total Protein Albumin Globulin Procalcitonin A. galactomannan A g EIA Not detected A. galactomannan A g Idx <0.50 Vitals: Last Vital Signs Temp 98.1 F 07/15/20 10:44 Pulse 76 07/15/20 10:44 Resp 18 07/15/20 10:44 BP 123/65 07/15/20 10:44 Pulse Ox 98 07/15/20 10:44 Discharge Plan Discharge Patient Disposition: Home Condition: Stable Prescriptions: New cholecalciferol (vitamin D3) 25 mcg (1,000 unit) Tablet 1,000 unit PO DAILY 30 Days Qty: 30 RF: 0 metoprolol tartrate 50 mg Tablet 50 mg PO Q12H 30 Days Qty: 60 RF: 0 Eliquis 5 mg tablet 5 mg PO BID 30 Days Qty: 60 RF: 0 levofloxacin 750 mg tablet 750 mg PO DAILY 7 Days Qty: 7 RF: 0 acetaminophen [Tylenol] 325 mg tablet 1,000 mg PO Q12H PRN (Reason: fever) 30 Days Qty: 90 RF: 0 ibuprofen 400 mg tablet 400 mg PO Q12H PRN (Reason: fever) 14 Days Qty: 28 RF: 0 doxycycline monohydrate 100 mg Tablet 100 mg PO Q12H 7 Days Qty: 14 RF: 0 Continued calcium carbonate [Calcium 600] 600 mg calcium (1,500 mg) tablet 600 mg PO DAILY@07 RF: 0 sildenafil 50 mg tablet 50 mg PO PRN PRN (Reason: erectile disfunction) RF: 0 Symbicort 80-4.5 mcg/actuation HFA aerosol inhaler 2 puff INHALATION Q12H 30 Days Qty: 10.2 RF: 2 albuterol sulfate [Ventolin HFA] 90 mcg/actuation HFA aerosol inhaler 1 - 2 puff INHALATION Q6H PRN (Reason: shortness of breath) 30 Days Qty: 18 RF: 2 aspirin 81 mg tablet,delayed release (DR/EC) 81 mg PO DAILY@07 RF: 0 oxycodone 5 mg tablet 5 mg PO .5 times a day PRN (Reason: pain) 30 Days Qty: 150 RF: 0 (DME) DME: [facility] See Rx Instructions .ROUTE .MEDSUPPLY Qty: 1 RF: 0 cyclobenzaprine 10 mg tablet 10 mg PO TID PRN (Reason: MUSCLE SPASMS) RF: 0 amitriptyline 25 mg tablet 25 mg PO BEDTIME@2200 RF: 0 tamsulosin 0.4 mg capsule 0.4 mg PO Q12H RF: 0 esomeprazole magnesium 40 mg capsule,delayed release(DR/EC) 40 mg PO DAILY@07 RF: 0 losartan 25 mg tablet 25 mg PO DAILY@07 RF: 0 hydrochlorothiazide 25 mg tablet 25 mg PO DAILY@07 RF: 0 potassium chloride 10 mEq tablet,ER particles/crystals 10 meq PO DAILY@07 RF: 0 Allergy Relief (fluticasone) 50 mcg/actuation spray,suspension 1 - 2 spray INTRANASAL DAILY PRN (Reason: Allergy Symptoms) RF: 0 magnesium 100 mg Tablet 100 mg PO DAILY@07 PRN (Reason: unknown) RF: 0 Held prednisone 10 mg tablet 10 mg PO DAILY PRN (Reason: joint pain) RF: 0 Hold Instructions: Resume on 08/15/20. until you see rheumatology prednisone 5 mg tablet 5 mg PO DAILY@07 RF: 0 Hold Instructions: Resume on 08/16/20. hold until you see rheumatology Rinvoq 15 mg tablet extended release 24 hr 15 mg PO DAILY@07 RF: 0 Hold Instructions: Resume on 08/16/20. hold until you see rheumatology Discontinued carvedilol 6.25 mg tablet 6.25 mg PO BID@0700,2200 RF: 0 Discharge Orders: Discharge Order (Routine); Ordered 07/15/20 Ordered By: Nitesh Yu Referrals: Patience Olmstead MD [Physician] - 2 weeks (fever of unkown origin) Oracio Laguna MD [Physician] - 4-7 days (appointment for lymph node biopsy) Indy Mcginnsi MD [Hospitalist] - 2 weeks (follow up labs for fever of uknown origin, csf, blood) Breanne Jha MD [Physician] - 1-3 days Discharge Diet: Cardiac Discharge Activity: Resume usual activity Patient Instructions: Opioid Safety Activity Restrictions/Additional Instructions: -Monitor for fevers, for fevers, please use high-dose Tylenol -If Tylenol does not break fever then use ibuprofen -Continue antibiotics for the next 7 days -For atrial fibrillation continue metoprolol, Eliquis 5 mg twice daily -Monitor for bloody or black stools -You have an appointment with Dr. Jha july 19 2020 Discharge Attestations Time Spent in Discharge Care*: greater than 30 min Quality Metrics Clinical Quality Measures During this hospital stay, did patient experience: None Coding Level of Care Code Acute [facility] note Diagnoses Fever R50.9 Atypical pneumonia J18.9 Seropositive rheumatoid arthritis of multiple sites M05.79 New onset atrial fibrillation I48.91
--- NOTE | 2020-07-15 14:40 | PC.NURSE ---
Pt discharged home. Pts IV removed no redness or swelling noted. Pts discharge instructions given along with prescriptions and follow up appointments. Pt had no c/o pain or discomfort at the time of discharge. Pt transferred out via wheelchair accompanied by staff.
[2020-07-17 00:52] LABS: HSV 1 DNA NOT DETECTED; HSV 2 DNA NOT DETECTED; HSV Source CEREBROSPINAL FLUID
[2020-07-17 03:03] LABS: CMV DNA By PCR <200 IU/mL; CMV DNA, QN PCR <2.30 Log IU/mL; SOURCE CEREBROSPINAL FLUID
[2020-07-17 17:17] LABS: Adenosine Deaminase CSF 0.6 U/L (<7.0)
--- NOTE | 2020-07-18 08:18 | PC.SOCIAL ---
Addendum entered by Anna Husain RN 07/18/20 08:52: Notified Patient of the information below. He is doing well. Helped to scheduled appts. Currently has appt with Dr Bean in Rheumatology September 04 at 2pm and he will try to get this moved up. Dr Laguna tomorrow 07/19/20 1:40pm. Dr Mcginnis 08/22/20 at 2:20pm. Dr Jha July 25 check in time at 2pm. Patient thought he had appt today with Dr Jha so will call to clarify. He has not checked but does not think running fever. Dr Mcginnis responded that she received email and this type of culture not usually done on sputum was her response. There are multiple pending labs still and patient is aware he will need to review these at upcoming appts especially one with Dr Ras ARROYO. He verbalized understanding. Original Note: Notified by [facility] that the viral rep rapid culture was not able to be tested due to not having suitable specimen. Notified Dr Yu ordering physician, Dr Ras ARROYO, and Maurice in lab.
[2020-07-19 13:53] LABS: West Nile Virus AB (IGG) <1.30 index; West Nile Virus AB (IGM) <0.90 index
[2020-07-19 17:47] LABS: St. Louis Enceph.Virus IGG CSF <1:1; St. Louis Enceph.Virus IGM CSF <1:1
[2020-07-19 21:38] LABS: Lyme Disease AB (IGG),IBL NO BANDS DETECTED; Lyme Disease AB (IGM), IBL NO BANDS DETECTED
[2020-07-20 02:02] LABS: VDRL on CSF NON-REACTIVE
[2020-07-21 20:47] LABS: Aspergillus AG,EIA,Serum NOT DETECTED; Aspergillus Galactomannan Inde <0.50
== END 2020-07-15 14:15 | disposition home or self-care (01) | DRG 871 ==
LOC: ER 13:30 → CSU 15:47
PROVIDERS: Internal Medicine; Admitting Provider Family Medicine; Emergency Provider Family Medicine; PCP Family Medicine; Visit Provider Family Medicine
DX: A41.9 Sepsis, unspecified organism (principal); J18.9 Pneumonia, unspecified organism; J44.0 Chronic obstructive pulmonary disease with (acute) lower respiratory infection; I50.22 Chronic systolic (congestive) heart failure; N13.8 Other obstructive and reflux uropathy; D84.821 Immunodeficiency due to drugs; N17.9 Acute kidney failure, unspecified; M05.9 Rheumatoid arthritis with rheumatoid factor, unspecified; Z87.891 Personal history of nicotine dependence; G89.29 Other chronic pain; I11.0 Hypertensive heart disease with heart failure; E78.5 Hyperlipidemia, unspecified; N40.1 Benign prostatic hyperplasia with lower urinary tract symptoms; Z79.52 Long term (current) use of systemic steroids; M54.5 Low back pain; N52.9 Male erectile dysfunction, unspecified; K21.00 Gastro-esophageal reflux disease with esophagitis, without bleeding; I48.91 Unspecified atrial fibrillation; Z91.81 History of falling; Z79.51 Long term (current) use of inhaled steroids; Z79.82 Long term (current) use of aspirin
CPT/HCPCS: 36415; 62328; 70450; 70551; 70552; 71045; 71250; 71275; 72125; 72128; 72131; 73562; 73700; 74176; 76882; 78802; 80053; 80074; 80202; 80500; 81001; 82042; 82550; 82728; 82945; 83605; 83615; 83735; 83880; 83916; 84100; 84145; 84157; 84311; 84315; 84443; 84484; 85025; 85378; 85384; 85610; 85651; 86140; 86160; 86162; 86235; 86255; 86376; 86403; 86480; 86592; 86606; 86611; 86612; 86617; 86618; 86628; 86635; 86653; 86664; 86665; 86666; 86694; 86695; 86696; 86698; 86757; 86777; 86788; 86789; 87040; 87070; 87075; 87086; 87205; 87305; 87327; 87426; 87496; 87497; 87530; 87635; 87641; 87798; 87804; 87806; 89050; 93005; 93306; 93970; 94640; 94664; 96372; A9569; A9577; G0378; J0743; J1100; J1170; J1650; J1940; J1956; J2020; J2060; J2270; J3370; J3475; J3490; J7030; J7040; J7611; Q9967

== ENCOUNTER → 2020-07-25 12:45 | Outpatient (BNVA) | payer MEDICARE, MEDICAID, SELFPAY | PROVIDERS: PCP Family Medicine; Visit Provider Internal Medicine Rheumatology | DX: M05.79 Rheumatoid arthritis with rheumatoid factor of multiple sites without organ or systems involvement (principal); R59.0 Localized enlarged lymph nodes; Z79.899 Other long term (current) drug therapy; R50.9 Fever, unspecified; F17.210 Nicotine dependence, cigarettes, uncomplicated | CPT/HCPCS: 73610; 99214 ==

== ENCOUNTER 2020-07-25 16:15 | Outpatient (CLI) | payer MEDICARE, MEDICAID, SELFPAY | END 2020-07-25 16:16 | disposition home or self-care (01) | LOC: SPT 16:16 | PROVIDERS: PCP Family Medicine; Visit Provider Podiatrist Foot & Ankle Surgery | DX: Z46.89 Encounter for fitting and adjustment of other specified devices (principal); S93.409D Sprain of unspecified ligament of unspecified ankle, subsequent encounter; X58.XXXD Exposure to other specified factors, subsequent encounter | CPT/HCPCS: 87635; 97760; L1902 ==

== ENCOUNTER 2020-07-26 11:58 | Outpatient (CLI) | payer MEDICARE, MEDICAID, SELFPAY ==
[2020-07-27 07:17] LABS: PROTEIN, TOTAL 6.8 g/dL (6.1-8.1)
[2020-07-27 12:22] LABS: KAPPA/LAMBDA LIGHT CHAINS FREE 1.58 (0.26-1.65); LAMBDA LIGHT CHAIN, FREE, SERU 24.1 mg/L (5.7-26.3)
[2020-07-27 12:53] LABS: Creatinine, Random Urine 71 mg/dL (20-320); Protein, Total, Random 11 mg/dL (5-25); Protein/Creatinine Ratio 0.155 (0.022-0.128); Protein/Creatinine Ratio 155 mg/g creat (22-128)
[2020-07-27 13:28] LABS: ABNORMAL PROTEIN BAND 1 0.2 g/dL (NONE DETECTED); ALBUMIN 3.1 g/dL (3.8-4.8); ALPHA 1 GLOBULIN 0.5 g/dL (0.2-0.3); ALPHA 2 GLOBULIN 1.4 g/dL (0.5-0.9); BETA 1 GLOBULIN 0.4 g/dL (0.4-0.6); BETA 2 GLOBULIN 0.4 g/dL (0.2-0.5)
[2020-07-28 11:46] LABS: Albumin,Urine Random 100 %; Alpha-1-Globulins Urine Random 0 %; Alpha-2-Globulins Urine Random 0 %; Beta-Globulin,Urine Random 0 %; Gamma Globulin,Urine Random 0 %
== END 2020-07-26 11:59 | disposition home or self-care (01) ==
PROVIDERS: PCP Family Medicine; Referring Provider Internal Medicine Rheumatology; Visit Provider Nurse Practitioner Family
DX: G89.29 Other chronic pain (principal); M54.16 Radiculopathy, lumbar region; M54.9 Dorsalgia, unspecified; F17.210 Nicotine dependence, cigarettes, uncomplicated; Z79.891 Long term (current) use of opiate analgesic; Z79.899 Other long term (current) drug therapy
CPT/HCPCS: 83883; 84155; 84156; 84165; 84166; 84260; 86335; 99213

== ENCOUNTER 2020-08-01 07:36 | Day surgery (SDC) | payer MEDICARE, MEDICAID, SELFPAY ==
[2020-07-31 13:28] VITALS: BMI 26.1
[2020-08-01] VITALS (8 sets, daily range): BP systolic 113–134; BP diastolic 59–99; PULSE 66–78; RESP 16–22; TEMP 36.4–36.8; O2SAT 94–99
[2020-08-01] MEDS: sodium chloride 0.9% 1,000 ML 30 ML IV (08:40)
[2020-08-01] MEDS: acetaminophen 1,000 MG/100 ML PIGGYBACK 400 MG IV (09:12)
--- NOTE | 2020-08-01 09:58 | ANES.PREANE2 ---
Pre-Anesthetic Assessment Pre-Anesthetic Assessment: Height/Weight: Height 1.75 m Weight 80.286 kg Temp Pulse Resp BP Pulse Ox 98.1 F 75 16 117/82 96 08/01/20 07:52 08/01/20 07:52 08/01/20 07:52 08/01/20 07:52 08/01/20 07:52 Preop Diagnosis: GERD, screening Proposed Procedure: Operation Date: 08/01/20 09:15 Proposed Procedures p left axillary lymph node biopsy 41751 R59.1(Left) - Oracio Laguna MD Was Beta Timothy taken within 24 hours: Yes Was Clonidine taken within 24 hours: N/A Last intake: Intake Last Liquid Date 07/31/20 Last Liquid Time 23:55 Last Solid Date 07/31/20 Last Solid Time 18:00 Social: Social History: Tobacco and No alcohol Exam: Pre-Anes Outpt Exam: alert, oriented x 3 and regular rate & rhythm Airway: Submandibular: WNL Cervical ROM: WNL MP: 2 Dentition: False Pulmonary: Pulmonary: COPD CV/HEM: CV/HEM: Afib and HTN Hepatic: Hepatic: Hepatitis (C) GI: GI: GERD Musc/skel: Musc/skel: Lower Back Pain and RA Comments: Chronic steroid, chronic pain/opioid Anesthetic Plan: ASA status: 3 Anesthesia: Choice Risk of > 500 ml blood loss (7ml/kg in children): No Meds/Allergies Current Medications: Current Medications Generic Name Dose Route Start Last Admin Trade Name Freq PRN Reason Stop Dose Admin Sodium Chloride 1,000 mls @ 30 ml s/hr 08/01/20 07:45 08/01/20 08:40 Sodium Chloride 0.9% IV 08/02/20 07:44 30 mls/hr .Q24H CIRILO Administration PFSH Anesthesia PFSH: Medical History BPH (benign prostatic hyperplasia) BPH loc w urin obs/LUTS Cervical arthritis CHF (congestive heart failure) Chronic radicular low back pain COPD (chronic obstructive pulmonary disease) DDD (degenerative disc disease) Encounter for long-term opiate analgesic use Erectile dysfunction Fatigue GERD (gastroesophageal reflux disease) H/O chronic active hepatitis Insomnia Rheumatoid arthritis Seropositive rheumatoid arthritis of multiple sites Trigger finger of left hand Surgical History H/O arthroscopic knee surgery left -2018 H/O hemorrhoidectomy H/O repair of rotator cuff Bilateral rt. 2010 left 2016 H/O submucous nasal surgery History of ear surgery History of facial surgery History of laminectomy Lumbar Status post colonoscopy (07/15/19) Repeat in 10 years Family History Father Hypertension Heart disease Diabetes Cancer colon cancer Mother Hypertension Stroke Sister Hypertension Liver disease Brother Hypertension Family/Other Heart disease AUNTS [employer] UNCLES Cancer PROSTATE-UNCLE Other Arthritis Denies family history of Anesthesia complication Bleeding disorder Social History (Updated 07/26/20 @ 10:40 by Ekta Francois LPN) Smoking and tobacco status: current some day smoker cigarettes Alcohol intake: former Year of sobriety/quit date alcohol: 2017 Desire information about alcohol rehabilitation?: No Desire information about substance/drug rehabilitation?: No History of recent travel: No Sexually active: Yes Current gender identity: Male Data Anesthesia Cardiac Studies: Holter Monitor 12/01/19
--- NOTE | 2020-08-01 10:29 | W.PM.OPSUD ---
Surgery/Procedure H&P Update DATE OF PROCEDURE: August 01, 2020 DATE H&P PERFORMED: 07/19/20 H&P UPDATE INFORMATION: I have reviewed H&P completed within last 30 days, I have examined patient prior to procedure and No changes to prior documentation PREOP DIAGNOSIS: LEFT AXILLARY LN PRIMARY INDICATION FOR PROCEDURE: THE SAME PLANNED PROCEDURE: Operation Date: 08/01/20 09:15 Proposed Procedures p left axillary lymph node biopsy [id number] R59.1(Left) - Oracio Laguna MD
[2020-08-01] MEDS: clindamycin 600 MG/50 ML PREMIX 100 MG IV (10:40)
[2020-08-01] MEDS: lidocaine 2% INJ 20 mL (11:15)
--- NOTE | 2020-08-01 11:37 | PM.OP ---
Operative Report Date of procedure: August 01, 2020 Pre-op Diagnosis: LEFT AXILLARY lymphadenopathy Post-op diagnosis: same Post-op Diagnosis: Left axillary lymphadenopathy with associated caseating-like material Post-op Findings: Amulgmated left axillary lymphadenopathy with extracapsular invasion of the lymph node with lymphoid tissue Caseation-like material/necrosis of lymph nodes Lymph nodes are hard in consistency Procedure Done: Left axillary lymph node biopsy Implants: Multiple medium size clips Specimens removed/disposition: Specimen cup #1 left axillary lymph node sent for lymphoma rule out/fresh Specimen cup #2 left axilla lymph node tissues for microbiology and cultures and sensitivities Specimen cup #3 left exam lymph node tissues for permanent pathology Surgeon: Oracio Laguna Care Program Director: Surgical rebecca Delaney Circulating nurse Anesthesia: General (LMA seasonal retail merchandiser Tristen Mckinley) Estimated blood loss (mL): 10 Condition: stable Disposition: same day Brief History: Left axilla lymphadenopathy in association with constitutional symptoms. Full H&P and informed consent per chart Procedure: After identifying the patient holding area, the correct site and side was marked before the procedure by myself, left axilla, patient was then taken to the operative suite, was placed in supine position, IV propofol was given by the anesthesia provider followed by LMA placement,Timeout was done verifying the patient's name/date of /planned procedure and destination after the procedure, all were in agreement. SCDs confirmed to be functioning, preoperative antibiotics administered per protocol, and beta javan protocol was confirmed Prep and drape of the left axillary region upper extremity was done under the usual sterile technique. Local anesthesia 2% lidocaine was infiltrated site of the incision overlying the left axillary lymph node site after aspiration, skin incision was done all the way down to the subcutaneous tissues dissection was then carried on ,Amulgmated lymphadenopathy mass 3x4 cm was dissected, hard in consistency, feeding blood vessels were controlled by medium size clips, during dissection there was caseation-like material/necrosis of lymph node and swabs were obtained for cultures and sensitivities. At the back table the lymph node mass was divided into 3 portions and sent as follow; Specimen cup #1 left axillary lymph node sent for lymphoma rule out/fresh Specimen cup #2 left axilla lymph node tissues for microbiology and cultures and sensitivities Specimen cup #3 left exam lymph node tissues for permanent pathology Hemostasis was achieved using Bovie cautery, followed by copious irrigation with normal saline, 2-0 Vicryl were used as an interrupted subdermal sutures and a subcuticular 4-0 Monocryl used for closure by Dermabond and pressure dressing. Count was completed at the end of the procedure Patient was taken to the recovery room in stable condition I was present for the whole entire procedure
--- NOTE | 2020-08-01 12:00 | SUR.PHASEI ---
1200- ORAL AIRWAY REMOVED, SIMPLE MASK AT 6LPM, SAT 99%
--- NOTE | 2020-08-01 12:48 | ANE.PACU2 ---
Inpatient post-anesthesia follow up: Airway intact: Yes Vital signs: Temperature 97.6 F Pulse Rate 66 Respiratory Rate 18 Blood Pressure 134/67 Pulse Oximetry 95 Oxygen Delivery Me thod Room Air Oxygen Flow Rate 6 Fraction of Inspir ed Oxygen Hydration adequate: Yes Nausea and vomiting: No Pain level: 2 Mental status: Baseline
[2020-08-03 08:06] LABS: Miscellaneous Test See Scanned Lab Rpt
== END 2020-08-01 13:05 | disposition home or self-care (01) ==
PROVIDERS: PCP Family Medicine; Visit Provider Surgery
PROC: (CPT 38525; principal; 2020-08-01 09:15)
DX: R59.1 Generalized enlarged lymph nodes (principal); Z79.82 Long term (current) use of aspirin; Z79.51 Long term (current) use of inhaled steroids; N40.1 Benign prostatic hyperplasia with lower urinary tract symptoms; N13.8 Other obstructive and reflux uropathy; I11.0 Hypertensive heart disease with heart failure; I50.9 Heart failure, unspecified; J44.9 Chronic obstructive pulmonary disease, unspecified; F17.210 Nicotine dependence, cigarettes, uncomplicated; I48.91 Unspecified atrial fibrillation; Z09 Encounter for follow-up examination after completed treatment for conditions other than malignant neoplasm; Z86.19 Personal history of other infectious and parasitic diseases
CPT/HCPCS: 38525; 87070; 87075; 87176; 87205; 88184; 88185; 88305; 88331; J1100; J2405; J2704; J3010; J3490; J7030

== ENCOUNTER → 2020-08-11 10:10 | Outpatient (BNVA) | payer MEDICARE, MEDICAID, SELFPAY | PROVIDERS: PCP Family Medicine; Visit Provider Anesthesiology | DX: G89.29 Other chronic pain (principal); M54.16 Radiculopathy, lumbar region; M54.9 Dorsalgia, unspecified; M47.812 Spondylosis without myelopathy or radiculopathy, cervical region; R59.0 Localized enlarged lymph nodes; F17.210 Nicotine dependence, cigarettes, uncomplicated; Z79.899 Other long term (current) drug therapy; Z79.891 Long term (current) use of opiate analgesic | CPT/HCPCS: 99214 ==

== ENCOUNTER 2020-08-15 09:12 | Outpatient (CLI) | payer MEDICARE, MEDICAID, SELFPAY ==
--- NOTE | 2020-08-15 20:21 | ONC CON_ITS ---
Dr. Marinelli New Patient Note Patient: Herrera Quintana Unit #: [id number]: 1955 Dicatated By: German Marinelli M.D.Date of Visit: Aug 15, 2020 Onc MED New Patient/Consult Referring Physician: Dr. Dg Colmenares M.D. Chief Complaint: Monoclonal gammopathy. History of Present Illness: This is a 64-year-old man with IgG kappa monoclonal gammopathy. He had initially presented to rheumatology with polyarthritis in 2012. 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 He eventually obtained a negative hepatitis C viral load around May 2014 after a 6-month course of treatment with Sovaldi/interferon. At that point he had continued treatment with hydroxychloroquine and low-dose prednisone for the arthritis. His evaluation during that time also demonstrated significant degenerative disease of the spine. In May 2019 he was seen by Dr. Jha for new onset of congestive heart failure, apparently due to nonischemic cardiomyopathy, as his echocardiogram showed global left ventricular hypokinesis with ejection fraction estimated at 40% and with no evidence of ischemia on myocardial perfusion scan. He has associated atrial fibrillation. On 07/06/2020 he was admitted to the hospital with a 2-day history of fever, chills, fatigue, malaise, shortness of breath, and cough. His laboratory studies showed some evidence of acute renal injury and he had very significantly elevated sed rate and CRP levels. CT pulmonary angiogram showed no evidence of pulmonary embolus. There were noted to be features commonly reported with COVID-19 pneumonia and there was evidence of enlarged left axillary lymph node measuring 1.7 cm. He continued to have fever on broad-spectrum antibiotic coverage. Further evaluation with CT of the chest, abdomen, and pelvis on 07/09/2020 continue to show nonspecific foci of groundglass infiltration in the right upper lobe and left axillary lymphadenopathy. There were no acute findings in the abdomen/pelvis. Multiple blood cultures remained negative. Head MRI on 07/12/2020 showed an ovoid cystic cavity with mild increased signal in the left temporal lobe and with adjacent temporal lobe increased T2 signal, suggestive of possible cerebritis or developing brain abscess. His lumbar puncture on 07/13/2020 was unrevealing. Multiple serologic studies were negative. He was discharged home on 07/15/2020 to continue empiric antibiotic coverage with doxycycline. On 08/01/2020 he underwent left axillary lymph node biopsy. Pathology showed necrotizing, caseating granulomas. There was no malignancy identified. There were no microorganisms identified by AFB or GMS stains and the Warthin-Starry stain was negative for spirochetes. In the meantime, his further laboratory studies on 07/26/2020 included serum protein electrophoresis which showed a poorly defined possible M spike migrating in the gamma region. It quantitated 0.2 g/dL. On immunofixation it was noted to be reactive with IgG and kappa antisera. His free light chain assay showed elevated free kappa light chain at 38.0 mg/L, free lambda light chain in the upper normal range at 24.1 mg/L and kappa lambda ratio in the upper normal range at 1.58. He still does not feel good generally. He says his energy is terrible and that he has no stamina. He is able to do light work, but only for short periods, as he has to rest after about 10 minutes. His ECOG score is 1. His appetite is still okay. He has had only low-grade fever since discharge from the hospital, maximum up to 100 degrees. He has had chills and sweating with the fever. He still sometimes has cough. He brings up just a little bit of white phlegm. He has shortness of breath, sometimes to the point that he is gasping for air. He also sometimes has chest pain and he has been having palpitations. He has no GI complaints. He has bladder outlet symptoms associated with enlarged prostate including urinary frequency and nocturia and decreased urinary stream. He has having joint pain commonly in the hands and knees, as his arthritis medicines are currently on hold. He continues to have frequent dull headaches, but sometimes with more severe pain, similar to the pain he would have with drinking a Freezee. He does not complain of dizziness, and he has no numbness/paresthesia or other focal neurologic symptoms. Past Medical History: Mr. Quintana's medical history includes atrial fibrillation, benign prostatic hypertrophy, chronic obstructive pulmonary disease, congestive heart failure, degenerative disease of the spine, gastroesophageal reflux disease, hepatitis C associated polyarthritis, history of treated hepatitis C, hypertension, and nonischemic cardiomyopathy. Past Surgical History: His other surgical/procedural history includes facial surgery, hemmorrhoidectomy, lumbar laminectomy, right stapedectomy, submucous nasal surgery, colonoscopy in 2019, left knee arthroscopy in 2017, left rotator cuff repair in 2015, and right rotator cuff repair in 2009. Medications: Albuterol Sulfate (sensor) 1 - 2 Puff(s) (of 108 (90 base) mcg/act) Aerosol Powder, Breath Activated Inhalation q 6 hours PRN, Amitriptyline HCl 1 (25 mg) Tablet Oral at bedtime, Aspirin 1 (81 mg) Tablet, chewable Oral daily, Calcium 1 (600 mg) Tablet Oral daily, Carvedilol 1 (6.25 mg) Tablet Oral b.i.d., Eliquis 1 (5 mg) Tablet Oral b.i.d., Flonase (50 mcg/act) Suspension Nasal Take as Directed, hydroCHLOROthiazide 1 (25 mg) Tablet Oral every am, Magnesium 1 (100 mg) Tablet Oral daily, Metoprolol Tartrate 1 (50 mg) Tablet Oral b.i.d., oxyCODONE HCl 1 (5 mg) Tablet Oral q 4 hours, Pantoprazole Sodium 1 (40 mg) Tablet, enteric coated Oral daily, Symbicort 2 Puff(s) (of 80-4.5 mcg/act) Aerosol Inhalation q 12 hours Allergies: Penicillins Social History: Mr. Quintana is . He has a history of smoking 1 pack of cigarettes daily for 50 years. He is also smoked pipe and/or cigars off and on. He had some heavier alcohol use as a teenager. He then quit for a long time, but later restarted some alcohol use, but not heavy. He has had none for 5 or 6 years. Family History: Father with heart disease. Mother had hypertension and strokes. One sister also has coronary artery disease. Review Of Symptoms: Constitutional - His energy is terrible. He has no stamina. He is able to do light work, but only for about 10 minutes without having to rest. He has good appetite. He still has low-grade fever up to 100 degrees and he has associated chills and sweating. ECOG score is 1, Eyes - He has had some decline in visual acuity, ENMT - He has hearing loss and tinnitus. No sinus congestion/drainage. He sometimes has sore mouth or throat. He has no difficulty swallowing, Hematologic/Lymphatic - He has easy bruising, Respiratory - He sometimes has shortness of breath, the point of gasping. He sometimes has cough productive of just a little bit of white sputum. No pleuritic pain or hemoptysis, Cardiovascular - He had been having chest pain and palpitations, but he has had none since the hospitalization, Gastrointestinal - No nausea or vomiting. His acid reflux is adequately controlled with medication. No diarrhea or constipation. No blood in the stool or black stools, Genitourinary (M) - He has urinary frequency and nocturia and he does not have very good urinary stream. No dysuria or hematuria. No urgency or incontinence, Musculoskeletal - He has joint pain with the rheumatoid arthritis, mainly in his hands, but also in his knees, Neurologic - He has been having frequent headaches. No dizziness. No numbness or tingling. No other focal neurologic symptoms, Psychiatric - He has had a lot of stress with this illness. He sometimes has difficulty sleeping. Vital Signs: Performed on Aug 15, 2020 10:12: 8, 3, 26.55, 1.97 sq.m, 69 in, 98 %, 68 /min, 18 /min, 151/91 mm(hg) (HIGH), 97.7 F (LOW), and 179.8 lbs (HIGH). Physical Examination: Constitutional - He appears somewhat weak generally, but not acutely ill, Eyes - Sclerae nonicteric. Conjunctivae clear, ENMT - Mouth is dry. There are no lesions noted in the oral cavity, Neck - No mass or thyromegaly, Hematologic/Lymphatic - No cervical or clavicular adenopathy. There is induration of the biopsy site in the lower left axillary area. There is no axillary adenopathy noted, Respiratory - Lungs are clear with good air movement bilaterally, Cardiovascular - Heart rhythm is regular with fairly frequent premature beats. There is no murmur, gallop, or rub noted, Abdomen - Soft. Liver and spleen are not enlarged. There is no abdominal mass or ascites noted and there is no inguinal adenopathy, Back/Spine - No spine or CVA tenderness noted, Extremities - No edema. Pedal pulses are palpable bilaterally. There are scattered purpuric lesions, Integumentary - No rashes. No suspicious skin lesions noted, Neurologic - No focal neurologic deficits noted. Problem List: 1. Low level IgG kappa monoclonal gammopathy. Given the clinical picture, the likelihood of myeloma or other plasma cell dyscrasia is very low. 2. He has had a recent febrile illness with very high inflammatory markers and with left axillary lymph node biopsy showing necrotizing granulomas. This is consistent with an underlying infectious etiology, though a specific cause has not been identified. 3. He has history of hepatitis C associated polyarthritis for which he has been on long-term immunosuppressive therapy. 4. Nonischemic cardiomyopathy with congestive heart failure. 5. Chronic atrial fibrillation. 6. Hypertension. 7. COPD. 8. GERD. 9. Degenerative disease of the spine. 10. Benign prostatic hypertrophy. Problems Addressed with this Encounter and Plan: Patient with low level IgG kappa monoclonal gammopathy. This was discovered in association with a febrile illness with very high inflammatory markers and with left axillary lymph node biopsy showing necrotizing granulomas. This is consistent with an underlying infectious etiology, though a specific cause has not been identified. Given the clinical picture, the likelihood of myeloma or other plasma cell dyscrasia is very low. The laboratory findings were reviewed with the patient and we discussed the clinical implications. I am request additional laboratory studies, which will be drawn on when he returns for a scheduled appointment with Dr. Jha, as I want to first confer with Dr. Cam regarding her recommendations for further serology studies. In addition, I am going to schedule him for repeat brain MRI to be done with and without contrast. He will then have further evaluation as indicated. Signed By: German Marinelli M.D. <<Signature on File>>
== END 2020-08-15 09:13 | disposition home or self-care (01) ==
PROVIDERS: PCP Family Medicine; Visit Provider Internal Medicine Medical Oncology
DX: D47.2 Monoclonal gammopathy (principal); M13.88 Other specified arthritis, other site; I42.8 Other cardiomyopathies; I50.9 Heart failure, unspecified; I48.20 Chronic atrial fibrillation, unspecified; I10 Essential (primary) hypertension; J44.9 Chronic obstructive pulmonary disease, unspecified; K21.9 Gastro-esophageal reflux disease without esophagitis; M47.9 Spondylosis, unspecified; N40.0 Benign prostatic hyperplasia without lower urinary tract symptoms; Z79.899 Other long term (current) drug therapy
CPT/HCPCS: 99205

== ENCOUNTER 2020-08-17 06:01 | Outpatient (CLI) | payer MEDICARE, MEDICAID, SELFPAY ==
--- NOTE | 2020-08-17 10:15 | MR_ITS ---
WS: [id number] MRI HEAD WITH CONTRAST TECHNIQUE: Sagittal T1, T2 axial, T2 axial FLAIR, axial susceptibility weighted imaging, axial diffus ion weighted images, and coronal T2 images were obtained. Pre and post-T1 axial and post T1 coronal i mages. ADC and FSPGR images. CLINICAL INFORMATION: HEADACHE AND FEVER;MONOCLONAL GAMMOPATHY COMPARISON: MRI July 12 and 2020 FINDINGS: No evidence of restricted diffusion to suggest acute ischemia. Mild small vessel changes. Moderate pa renchymal volume loss. 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 Normal posterior fossa. Normal vascular flow voids at the skull base. No extra-axial fluid collections. No evidence of mass or mass effect. Paranasal si nuses and mastoid air cells well aerated. Moderate symmetric atrophy temporal lobes and hippocampal formations. Normal optic chiasm and pituita ry infundibulum. No hemosiderin on the susceptibly weighted images. No abnormal intracranial enhancement. No evidence of intracranial enhancing metastatic disease. No en hancing intracranial lesions. No evidence of enhancing meningitis or cerebritis. Normal optic chiasm and pituitary infundibulum. Normal cavernous sinuses and Meckel's cave. Normal du ral venous sinuses. MR/MR head wo/w con [id number] IMPRESSION: 1. No evidence of restricted diffusion to suggest acute ischemia. 2. Mild small vessel changes with moderate parenchymal volume loss. 3. 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 4. No evidence of enhancing intracranial metastatic disease. 5. Mild to moderate symmetric atrophy temporal lobes and hippocampal formation s. 6. No other significant findings.
[2020-08-17 10:34] LABS: Basophils # 0.1 10^3/uL (0.0-0.1); Basophils % 0.6 %; Eosinophils # 0.2 10^3/uL (0.0-0.8); Eosinophils % 1.2 %; Hematocrit 34.7 % (42.0-52.0); Hemoglobin 11.4 g/dL (11.7-16.6); Lymphocytes # 1.4 10^3/uL (0.8-4.8); Lymphocytes % 11.1 %; Mean Corpuscular HGB Conc 32.9 g/dL (30.0-36.0); Mean Corpuscular Hemoglobin 30.6 pg (28.0-34.0); Mean Corpuscular Volume 93.3 fL (80-94); Mean Platelet Volume 10.3 fL (7.4-10.4); Monocytes % 7.8 %; Neutrophils # 9.59 10^3/uL (1.8-7.7); Neutrophils % 78.3 %; Nucleated Red Blood Cells % 0 %; Platelet Count 280 10^3/cmm (130-400); Red Blood Count 3.72 10^6/uL (4.1-5.3); Red Cell Distribution Width 15.6 % (12.1-15.1); White Blood Count 12.2 10^3/uL (4.0-10.0)
[2020-08-17 10:53] LABS: Alanine Aminotransferase 19 U/L (0-41); Alkaline Phosphatase 85 IU/L (40-130); Aspartate Amino Transferase 18 U/L (0-40); Blood Urea Nitrogen 20 mg/dL (8-23); Calcium 9.4 mg/dL (8.5-10.5); Carbon Dioxide 25 mmol/L (22-29); Chloride 102 mmol/L (98-107); Globulin 3.2 g/dL (1.3-4.6); Glomerular Filtration Rate 85.5 mL/min (90-130); Glucose 100 mg/dL (65-115); Osmolality Calculated 293 mOsm/kg (285-295); Sodium 140 mmol/L (136-145); Total Bilirubin 0.2 mg/dL (0.15-1.2); Total Protein 7.2 g/dL (6.6-8.7)
[2020-08-17 11:01] LABS: Rapid Plasma Reagin Syphilis Nonreactive (Nonreactive)
[2020-08-17] MEDS: gadobenate dimeglumine 20 mL vial IV (11:11)
[2020-08-17 11:18] LABS: Erythrocyte Sedimentation Rate 88 mm/hr (0-10)
[2020-08-17 11:30] LABS: Hepatitis A Antibody IgM Non-Reactive (Nonreactive); Hepatitis B Core AB, Total Non-Reactive (Nonreactive); Hepatitis B Surface AB 3.5 (11.5-1000); Hepatitis B Surface Antigen Non-Reactive (Nonreactive); Hepatitis C Virus Antibody Reactive (Nonreactive)
[2020-08-18 11:58] LABS: HEP C RNA Viral Load Quant <1.18 NOT DETECTED Log IU/mL (NOT DETECTED); HEP C RNA Viral Load Quant <15 NOT DETECTED IU/mL (NOT DETECTED)
[2020-08-18 13:02] LABS: HIV RNA (CPY/ML) <1.30 NOT DETECTED (NOT DETECTED); HIV RNA LOG <20 NOT DETECTED copies/mL (NOT DETECTED)
== END 2020-08-17 06:02 | disposition home or self-care (01) ==
LOC: RADSHAW 06:04 → ONCMED 07:44
PROVIDERS: PCP Family Medicine; Visit Provider Internal Medicine Medical Oncology
DX: D47.2 Monoclonal gammopathy (principal); I63.9 Cerebral infarction, unspecified; Z79.899 Other long term (current) drug therapy
CPT/HCPCS: 36415; 70553; 80053; 85025; 85651; 86141; 86592; 86705; 86706; 86709; 86803; 87340; 87522; 87536; A9577

== ENCOUNTER → 2020-08-22 16:05 | Outpatient (BNVA) | payer MEDICARE, MEDICAID, SELFPAY | PROVIDERS: PCP Family Medicine; Visit Provider Student in an Organized Health Care Education/Training Program | DX: R50.9 Fever, unspecified (principal); R59.0 Localized enlarged lymph nodes | CPT/HCPCS: 82164; 82570; 84156; 86622; 87040; 87385; 87449 ==

== ENCOUNTER → 2020-08-23 13:12 | Outpatient (BNVA) | payer MEDICARE, MEDICAID, SELFPAY | PROVIDERS: PCP Family Medicine; Visit Provider Internal Medicine Rheumatology | DX: M05.79 Rheumatoid arthritis with rheumatoid factor of multiple sites without organ or systems involvement (principal); Z79.899 Other long term (current) drug therapy; I50.22 Chronic systolic (congestive) heart failure; R59.0 Localized enlarged lymph nodes; Z71.89 Other specified counseling; F17.210 Nicotine dependence, cigarettes, uncomplicated; R50.9 Fever, unspecified | CPT/HCPCS: 83516; 99214 ==

== ENCOUNTER → 2020-08-31 15:21 | Outpatient (BNVA) | payer MEDICARE, MEDICAID, SELFPAY | PROVIDERS: PCP Family Medicine; Visit Provider Internal Medicine Pulmonary Disease | DX: R06.02 Shortness of breath; J41.0 Simple chronic bronchitis; J84.9 Interstitial pulmonary disease, unspecified; I50.22 Chronic systolic (congestive) heart failure | CPT/HCPCS: 82785; 86003; 86638 ==

== ENCOUNTER → 2020-09-04 10:41 | Outpatient (BNVA) | payer MEDICARE, MEDICAID, SELFPAY | PROVIDERS: PCP Family Medicine; Visit Provider Student in an Organized Health Care Education/Training Program | DX: Z86.19 Personal history of other infectious and parasitic diseases (principal); A44.9 Bartonellosis, unspecified; R50.9 Fever, unspecified | CPT/HCPCS: 80076; 86682; 87801 ==

== ENCOUNTER → 2020-09-22 13:12 | Outpatient (BNVA) | payer MEDICARE, MEDICAID, SELFPAY | PROVIDERS: PCP Family Medicine; Visit Provider Nurse Practitioner | DX: G89.29 Other chronic pain (principal); M54.16 Radiculopathy, lumbar region; M47.812 Spondylosis without myelopathy or radiculopathy, cervical region; M17.11 Unilateral primary osteoarthritis, right knee; Z79.891 Long term (current) use of opiate analgesic; M05.79 Rheumatoid arthritis with rheumatoid factor of multiple sites without organ or systems involvement; F17.200 Nicotine dependence, unspecified, uncomplicated; Z71.6 Tobacco abuse counseling | CPT/HCPCS: 99215 ==

== ENCOUNTER → 2020-10-09 15:00 | Outpatient (BNVA) | payer MEDICARE, MEDICAID, SELFPAY | PROVIDERS: PCP Family Medicine; Referring Provider Internal Medicine Rheumatology; Visit Provider Internal Medicine Rheumatology | DX: M05.79 Rheumatoid arthritis with rheumatoid factor of multiple sites without organ or systems involvement (principal); Z79.899 Other long term (current) drug therapy | CPT/HCPCS: 80076; 82565; 85025; 86140 ==

== ENCOUNTER 2020-10-11 11:56 | Outpatient (CLI) | payer MEDICARE, MEDICAID, SELFPAY ==
--- NOTE | 2020-10-11 12:05 | XR_ITS ---
WS: [id number] Exam: XR chest 2V* [id number] Date/Time of Exam: 10/11/2020 12:05 PM Reason For Exam: dyspnea Comparison 07/10/2020. The lungs are clear and fully expanded. Normal cardiomediastinal structures and regional bony element s. Surgical clips seen along the left axilla. Anchoring screws in the bilateral proximal humeri. No p leural effusions. XR/XR chest 2V* [id number] IMPRESSION: 1. No acute cardiopulmonary finding.
== END 2020-10-11 11:57 | disposition home or self-care (01) ==
LOC: RAD 12:02
PROVIDERS: PCP Family Medicine; Visit Provider Internal Medicine Pulmonary Disease
DX: R06.00 Dyspnea, unspecified (principal); G89.29 Other chronic pain; M54.16 Radiculopathy, lumbar region; M47.812 Spondylosis without myelopathy or radiculopathy, cervical region; Z79.891 Long term (current) use of opiate analgesic
CPT/HCPCS: 71046; 99214

== ENCOUNTER → 2020-10-16 13:02 | Outpatient (BNVA) | payer MEDICARE, MEDICAID, SELFPAY | PROVIDERS: PCP Family Medicine; Visit Provider Internal Medicine Rheumatology | DX: M05.79 Rheumatoid arthritis with rheumatoid factor of multiple sites without organ or systems involvement (principal); Z79.899 Other long term (current) drug therapy; I50.22 Chronic systolic (congestive) heart failure; R59.0 Localized enlarged lymph nodes; R50.9 Fever, unspecified; M47.812 Spondylosis without myelopathy or radiculopathy, cervical region; M47.816 Spondylosis without myelopathy or radiculopathy, lumbar region; Z98.890 Other specified postprocedural states; Z86.19 Personal history of other infectious and parasitic diseases; Z71.89 Other specified counseling; Z87.891 Personal history of nicotine dependence | CPT/HCPCS: 80048; 82565; 82575; 83735; 83880; 84295; 84300; 84520; 84540; 99214; 99215 ==

== ENCOUNTER → 2020-10-24 15:08 | Outpatient (BNVA) | payer MEDICARE, MEDICAID, SELFPAY | PROVIDERS: PCP Family Medicine; Referring Provider Internal Medicine Cardiovascular Disease; Visit Provider Internal Medicine Cardiovascular Disease | DX: I48.91 Unspecified atrial fibrillation (principal); I11.0 Hypertensive heart disease with heart failure; I50.22 Chronic systolic (congestive) heart failure; Z79.899 Other long term (current) drug therapy; M05.79 Rheumatoid arthritis with rheumatoid factor of multiple sites without organ or systems involvement | CPT/HCPCS: 80048; 80076; 82565; 83735; 83880; 85025 ==

== ENCOUNTER → 2020-11-17 14:59 | Outpatient (BNVA) | payer MEDICARE, MEDICAID, SELFPAY | PROVIDERS: PCP Family Medicine; Visit Provider Internal Medicine Pulmonary Disease | DX: Z20.822 Contact with and (suspected) exposure to COVID-19 (principal) | CPT/HCPCS: 87635 ==

== ENCOUNTER 2020-11-23 08:30 | Outpatient (CLI) | payer MEDICARE, MEDICAID, SELFPAY ==
--- NOTE | 2020-11-23 10:21 | PFTS_ITS ---
Date of Study:11/23/20 Date of Dictation: MECHANICS: Forced vital capacity (FVC) is reduced. Forced expiratory volume in one second (FEV1) is reduced. FEV1/FVC is normal. FLOW VOLUME LOOP: Narrow. LUNG VOLUMES: Not measured. DIFFUSING CAPACITY FOR CARBON MONOXIDE: Mildly reduced. INTERPRETATION: The prebronchodilator spirometry is consistent with mild restriction. No postbronchodilator spirometry was performed.. Gas exchange (DLCO) is mildly reduced. MTDD
== END 2020-11-23 08:31 | disposition home or self-care (01) ==
LOC: RT 08:35
PROVIDERS: PCP Family Medicine; Visit Provider Internal Medicine Pulmonary Disease
DX: J44.9 Chronic obstructive pulmonary disease, unspecified (principal)
CPT/HCPCS: 94060; 94618; 94726; 94729; J7611

== ENCOUNTER → 2020-12-14 11:02 | Outpatient (BNVA) | payer MEDICARE, MEDICAID, SELFPAY | PROVIDERS: PCP Family Medicine; Visit Provider Family Medicine | DX: Z20.822 Contact with and (suspected) exposure to COVID-19 (principal) | CPT/HCPCS: 87635 ==

== ENCOUNTER 2020-12-20 12:46 | Outpatient (CLI) | payer MEDICARE, MEDICAID, SELFPAY ==
[2020-12-20 13:24] VITALS: BP 115/81; PULSE 108; RESP 16; TEMP 36.8; O2SAT 97; BMI 27.6
[2020-12-20] MEDS: diphenhydrAMINE 50 mg Capsule PO (13:29)
[2020-12-20 13:41] LABS: Basophils % 0.4 %; Eosinophils # 0.1 10^3/uL (0.0-0.8); Eosinophils % 1.1 %; Hematocrit 37.1 % (42.0-52.0); Lymphocytes % 20.1 %; Mean Corpuscular HGB Conc 32.3 g/dL (30.0-36.0); Mean Corpuscular Hemoglobin 28.4 pg (28.0-34.0); Mean Corpuscular Volume 87.7 fl (80-94); Monocytes # 1.1 10^3/uL (0.2-0.9); Monocytes % 11.5 %; Neutrophils # 6.44 10^3/uL (1.8-7.7); Neutrophils % 66.5 %; Nucleated Red Blood Cells % 0 %; Platelet Count 357 10^3/cmm (130-400); Red Blood Count 4.23 10^6/uL (4.1-5.3); Red Cell Distribution Width 14.1 % (12.1-15.1); White Blood Count 9.7 10^3/uL (4.0-10.0)
[2020-12-20 13:58] LABS: INR 1.06 (0.8-1.2)
[2020-12-20 14:09] LABS: Anion Gap 15.8 (5-19); Blood Urea Nitrogen 36 mg/dL (8-23); Calcium 9.9 mg/dL (8.5-10.5); Carbon Dioxide 25 mmol/L (22-29); Chloride 99 mmol/L (98-107); Glucose 94 mg/dL (65-115); Osmolality Calculated 290 mOsm/kg (285-295); Potassium 3.8 mmol/L (3.5-5.1); Sodium 136 mmol/L (136-145)
--- NOTE | 2020-12-20 14:20 | W.PM.OPSFHP ---
Same Day Surgery H&P Indication for Procedure/HPI DATE OF PROCEDURE: December 20, 2020 CHIEF COMPLAINT/INDICATIONFOR SURGICAL PROCEDURE: New onset of heart failure, LV dysfunction, arrhythmia PREOP DIAGNOSIS: Left and right heart cath for new onset of heart failure LVdys PLANNED PROCEDRUE: Operation Date: 12/20/20 14:00 Proposed Procedures p Cardiac Catheterization(Bilateral) - Gurvinder Toledo MD 65-year-old male past medical history significant for hypertension hyperlipidemia chronic atrial fibrillation for worsening of left ventricle function new onset of heart failure moderate to severely depressed ejection fraction has been referred to us for left and right heart cath. Dr. Raymundo is his load out worker. I have personally explained all risk benefit and alternative for the procedure patient understand risk for stroke contrast-induced nephropathy major minor bleed urgent emergent bypass surgery pseudoaneurysm vascular injury. He is a candidate for DAPT however he is on Eliquis our plan is in case of intervention we will proceed with Plavix Eliquis and aspirin for 1 month followed by Plavix Eliquis for 6 months. Medications/Allergies* Home Medications Medication Instructions Recorded Confirmed Type calcium carbonate 600 mg calcium 600 mg PO DAILY@07 12/22/19 12/19/20 History (1,500 mg) tablet magnesium 100 mg PO DAILY@07 PRN 07/06/20 12/19/20 History cholecalciferol (vitamin D3) 25 25 mcg PO DAILY 08/30/20 12/19/20 History mcg (1,000 unit) capsule esomeprazole magnesium 40 mg 40 mg PO ONCE cap 09/22/20 12/19/20 History capsule,delayed release aspirin 325 mg tablet 81 mg PO DAILY tab 11/16/20 12/19/20 History potassium chloride 20 mEq 20 meq PO DAILY@07 tab 11/16/20 12/19/20 History tablet,extended release(part/cryst) Allergies/Adverse Reactions Allergy/AdvReac Type Severity Reaction Status Date / Time Penicillins Allergy Unknown Verified 12/19/20 13:09 Current Medications: Generic Name Dose Route Start Last Admin Trade Name Freq PRN Reason Stop Dose Admin Sodium Chloride 1,000 mls @ 50 mls/hr 12/20/20 13:00 12/20/20 13:29 Sodium Chloride 0.9% IV 12/21/20 08:59 Not Given .Q20H ONE Pertinent History/Comorbid Conditions* Medical History (Updated 11/16/20 @ 18:43 by Breanne Jha MD) Atrial fibrillation BPH (benign prostatic hyperplasia) BPH loc w urin obs/LUTS Cervical arthritis CHF (congestive heart failure) Chronic radicular low back pain COPD (chronic obstructive pulmonary disease) DDD (degenerative disc disease) Encounter for long-term opiate analgesic use Erectile dysfunction Fatigue GERD (gastroesophageal reflux disease) H/O chronic active hepatitis Insomnia Rheumatoid arthritis Seropositive rheumatoid arthritis of multiple sites Trigger finger of left hand Surgical History (Updated 09/07/20 @ 12:52 by Oracio Laguna MD) H/O arthroscopic knee surgery left -2018 H/O hemorrhoidectomy H/O repair of rotator cuff Bilateral rt. 2009 left 2016 H/O submucous nasal surgery History of ear surgery History of facial surgery History of laminectomy Lumbar Status post colonoscopy (07/15/19) Repeat in 10 years Family History (Updated 07/09/19 @ 09:03 by Carlee To RN) Liver disease Sister Diabetes Father Arthritis Heart disease Father Family/Other AUNTS AND UNCLES Cancer Father colon cancer Family/Other PROSTATE-UNCLE Hypertension Father Mother Sister Brother Stroke Mother Denies family history of Anesthesia complication Bleeding disorder Social History Smoking and tobacco status: current every day smoker cigarettes Years cigarettes smoked: 50 Quit status (tobacco): considering quitting Alcohol intake: former Year of sobriety/quit date alcohol: 2017 Desire information about alcohol rehabilitation?: No Desire information about substance/drug rehabilitation?: No Lives independently: Yes Housing: House Marital status details: Number of children: 2 service: No Current occupational status: unemployed Current occupational exposures/hazards: No 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
--- NOTE | 2020-12-20 14:38 | PM.HP ---
Providers/Chief Complaint Primary Care Provider: Debbie Cardoso MD Chief Complaint: [id number] chronic systolic congestive heart failure History of Present Illness Herrera Quintana is a 65 year old male past medical history significant of new onset of heart failure arrhythmia/PVCs, hep C hypertension family history of heart problem was brought to outpatient Hand Drawer In setting for left heart cath suggested by Dr. Jha. Patient was noted to have acute renal failure with prerenal azotemia. Procedure is being postponed for IV hydration, patient will be admitted to [facility]. I will discontinue diuretics and start patient on IV fluid 100 mL/h. Once creatinine will be normalized I will proceed with left heart cath since patient lives far away and does not have a ride. Review of Systems ENMT: Denies: enlarged tonsils Musc: Denies: joint warmth Psych: Reports: sleeping more All/Imm: Denies: acute wheezing Medications/Allergies Home Medications Medication Instructions Recorded Confirmed Last Taken Type calcium carbonate 600 mg calcium 600 mg PO DAILY@07 12/22/19 12/27/20 12/19/20 18:00 History (1,500 mg) tablet magnesium 100 mg PO DAILY@07 PRN 07/06/20 12/27/20 12/19/20 18:00 History terbinafine HCl 1 % topical cream 1 applic TOPICAL DAILY 14 Days #30 08/01/20 12/27/20 12/19/20 18:00 Rx g carvedilol 6.25 mg tablet 6.25 mg PO BID #60 tab 08/14/20 12/27/20 12/19/20 18:00 Rx budesonide-formoterol HFA 160 2 puff INHALATION BID #10.2 g 08/30/20 12/27/20 Unknown Rx mcg-4.5 mcg/actuation aerosol inhaler cholecalciferol (vitamin D3) 25 25 mcg PO DAILY 08/30/20 12/27/20 12/19/20 18:00 History mcg (1,000 unit) capsule ipratropium 0.5 mg-albuterol 3 mg 3 ml INHALATION Q4H PRN #90 ml 08/30/20 12/27/20 Unknown Rx (2.5 mg base)/3 mL nebulization soln ipratropium 20 mcg-albuterol 100 1 puff INHALATION Q6H PRN #4 g 08/30/20 12/27/20 Unknown Rx mcg/actuation mist for inhalation rifabutin 150 mg capsule 150 mg PO BID 15 Days #30 cap 09/04/20 12/27/20 12/19/20 18:00 Rx esomeprazole magnesium 40 mg 40 mg PO ONCE cap 09/22/20 12/27/20 12/19/20 18:00 History capsule,delayed release bupropion HCl (smoking deter) 150 150 mg PO BID #60 tab MDD 300 mg 10/11/20 12/27/20 12/19/20 18:00 Rx mg tablet,12 hr sustained-release(smoking deterrent) tiotropium bromide 2.5 2 puff INHALATION DAILY #4 g 10/11/20 12/27/20 12/19/20 18:00 Rx mcg/actuation mist for inhalation atovaquone 750 mg/5 mL oral 1,500 mg PO DAILY #210 ml 10/17/20 12/27/20 12/19/20 18:00 Rx suspension prednisone 10 mg tablet 10 mg PO DAILY #90 tab 10/17/20 12/27/20 12/19/20 18:00 Rx amitriptyline 50 mg tablet See Rx Instructions .ROUTE 10/23/20 12/27/20 12/19/20 18:00 Rx .COMPLEX #30 tab apixaban 5 mg tablet See Rx Instructions .ROUTE 10/23/20 12/27/20 12/13/20 08:00 Rx .COMPLEX #60 tab torsemide 20 mg tablet 20 mg PO DAILY #60 tab 11/07/20 12/27/20 12/19/20 18:00 Rx aspirin 325 mg tablet 81 mg PO DAILY tab 11/16/20 12/27/20 12/19/20 18:00 History potassium chloride 20 mEq 20 meq PO DAILY@07 tab 11/16/20 12/27/20 12/19/20 18:00 History tablet,extended release(part/cryst) polyethylene glycol 3350 17 17 g PO DAILY #238 g 12/01/20 12/27/20 12/19/20 18:00 Rx gram/dose oral powder albuterol sulfate 90 mcg/actuation See Rx Instructions .ROUTE 12/06/20 12/27/20 Unknown Rx aerosol inhaler .COMPLEX #18 g tamsulosin 0.4 mg capsule 0.4 mg PO BID #60 cap 12/06/20 12/27/20 12/19/20 18:00 Rx fluticasone propionate 50 1 spray INTRANASAL BID #50 ml 12/13/20 12/27/20 Unknown Rx mcg/actuation nasal spray,suspension loratadine 10 mg tablet 10 mg PO DAILY 30 Days #30 tab 12/14/20 12/27/20 12/19/20 18:00 Rx nystatin 100,000 unit/mL oral 1,000,000 unit PO TID 14 Days #480 12/14/20 12/27/20 12/19/20 18:00 Rx suspension ml oxycodone 10 mg tablet 10 mg PO QID 30 Days #120 tab 12/27/20 12/27/20 Unknown Rx oxycodone 10 mg tablet 10 mg PO QID PRN 30 Days #120 tab 12/27/20 12/27/20 Unknown Rx Allergies Allergy/AdvReac Type Severity Reaction Status Date / Time Penicillins Allergy Unknown Verified 12/27/20 08:29 PFSH Acute PFSH: Medical History Atrial fibrillation BPH (benign prostatic hyperplasia) BPH loc w urin obs/LUTS Cervical arthritis CHF (congestive heart failure) Chronic radicular low back pain COPD (chronic obstructive pulmonary disease) DDD (degenerative disc disease) Encounter for long-term opiate analgesic use Erectile dysfunction Fatigue GERD (gastroesophageal reflux disease) H/O chronic active hepatitis Insomnia Rheumatoid arthritis Seropositive rheumatoid arthritis of multiple sites Trigger finger of left hand Surgical History H/O arthroscopic knee surgery left -2018 H/O hemorrhoidectomy H/O repair of rotator cuff Bilateral rt. 2010 left 2016 H/O submucous nasal surgery History of ear surgery History of facial surgery History of laminectomy Lumbar Status post colonoscopy (07/15/19) Repeat in 10 years Family History Father Hypertension Heart disease Diabetes Cancer colon cancer Mother Hypertension Stroke Sister Hypertension Liver disease Brother Hypertension Family/Other Heart disease AUNTS AND UNCLES Cancer PROSTATE-UNCLE Other Arthritis Denies family history of Anesthesia complication Bleeding disorder Social History (Updated 12/27/20 @ 08:31 by Ekta Francois LPN) Smoking and tobacco status: former smoker Second hand smoke exposure: No Alcohol intake: former Year of sobriety/quit date alcohol: 2017 Desire information about alcohol rehabilitation?: No Desire information about substance/drug rehabilitation?: No Lives independently: Yes Housing: House Marital status details: Number of children: 2 service: No Current occupational status: unemployed Current occupational exposures/hazards: No 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 NECK: No jugular vein distension. HEENT: No cyanosis. No icterus. No pallor. HEART: Regular S1 and S2. No murmur, rub or gallop. LUNGS: Clear to auscultate bilaterally. ABDOMEN: Soft, nontender and nondistended. Positive bowel sounds. No guarding, rebound or tenderness. CENTRAL NERVOUS SYSTEM: Grossly nonfocal. EXTREMITIES: Lower extremities without edema bilaterally. Data : 12/22/20 06:36 12/23/20 05:23 A&P Assessment and plan (1) CHF (congestive heart failure): New onset of heart failure with LV dysfunction patient is here for left heart cath. Since creatinine is 1.9 and patient is in acute renal failure prerenal azotemia type. I will start patient on IV fluid. Status: Acute Qualifiers: Heart failure chronicity: chronic Heart failure type: systolic Qualified Code(s): I50.22 - Chronic systolic (congestive) heart failure (2) PVC (premature ventricular contraction): Patient has high burden of PVCs. Patient has been referred to us for left heart cath before ablation. Status: Acute (3) Atrial fibrillation: History of atrial fibrillation. Apixaban is on hold. We will switch patient to Lovenox Status: Acute Qualifiers: Atrial fibrillation type: paroxysmal Qualified Code(s): I48.0 - Paroxysmal atrial fibrillation (4) Acute renal failure (ARF): Stop diuretics. Start patient on IV fluid will reassess in the morning Status: Resolved Qualifiers: Acute renal failure type: with other specified pathological lesion Qualified Code(s): N17.8 - Other acute kidney failure Attestations Medical Necessity Statement*: Patient will be admitted for IV hydration and acute renal failure before coronary angiogram in order to prevent contrast-induced nephropathy. Coding Level of Care Code New Pt Acute Manager Report for Jeanetteg Trip Patient Type New History Detailed Exam Detailed Medical Decision Making Moderate Complexity Diagnoses CHF (congestive heart failure) I50.22 Heart failure chronicity: chronic Heart failure type: systolic PVC (premature ventricular contraction) I49.3 Atrial fibrillation I48.0 Atrial fibrillation type: paroxysmal Acute renal failure (ARF) N17.8 Acute renal failure type: with other specified pathological lesion
[2020-12-20] MEDS: sodium chloride 0.9% 1,000 ML 100 ML IV (16:05)
[2020-12-20] MEDS: buPROPion SR (12 HR) 150 mg Tablet PO (18:23)
[2020-12-20] MEDS: tamsulosin 0.4 mg Capsule PO (18:23)
[2020-12-20] MEDS: carvedilol 6.25 mg Tablet PO (18:23)
[2020-12-20] MEDS: fluticasone nasal spray 16gm Btl 1 SPRAY INTRANASAL (18:28)
--- NOTE | 2020-12-20 18:57 | PC.NURSE ---
Received bedside report from MARY Douglas. Patient resting in bed watching TV. Patient denies pain at this time. Discussed fluid administration in relation to elevated creatinine. Patient was planned outpatient heart catheterization which is postponed until 12/22/20. Patient verbalized complete understanding. No distress observed.
--- NOTE | 2020-12-20 19:52 | PC.NURSE ---
received from cardiac filling station laborer at 1600.pt's creat came back 1.9 prior to angiogram...so case was postponed until friday.pt will get hydrated with ivf's until then.pt is alert and oriented x 4.denies pain.sr on monitor.oriented to room environment .instructed to notified staff for any chest pain ,sob..or for any concerns at all.pt verb understanding of instructions.
[2020-12-20 19:59] VITALS: BP 114/80; PULSE 99; RESP 23; TEMP 36.7; O2SAT 95
[2020-12-20 20:44] VITALS: RESP 22
[2020-12-20] MEDS: nystatin 100,000 unit/mL UDC 5 mL 1000000 UNIT PO (20:44)
[2020-12-20] MEDS: oxyCODONE 5 mg IR Tab/Cap 10 MG PO (20:44)
[2020-12-20] MEDS: amitriptyline 25 mg Tablet 50 MG PO (20:44)
[2020-12-20 20:57] VITALS: PULSE 97; RESP 18; O2SAT 99
[2020-12-20 23:17] VITALS: BP 104/72; PULSE 99; RESP 22; TEMP 36.6; O2SAT 94
[2020-12-21] VITALS (11 sets, daily range): BP systolic 106–121; BP diastolic 75–83; PULSE 93–104; RESP 16–27; TEMP 36.4–36.8; O2SAT 92–97
[2020-12-21] MEDS: sodium chloride 0.9% 1,000 ML 100 ML IV ×2 (01:00→11:09)
--- NOTE | 2020-12-21 05:56 | PC.NURSE ---
Shift Note Frequent safety and comfort rounds continue. Orders and/or nursing care completed as indicated. Patient monitored for response to intervention and treatment(s). Education provided includes iv fluids. Patient verbalized complete understanding. Patient had uneventful evening. Denies needs this morning. Patient has chronic pain related to history of back injury and rheumatoid arthritis. Pain medication are scheduled presently for this. Patient denies need for pain control at this time. No distress observed. Will continue to monitor.
[2020-12-21 07:55] LABS: Anion Gap 16.1 (5-19); Blood Urea Nitrogen 24 mg/dL (8-23); Calcium 9.4 mg/dL (8.5-10.5); Carbon Dioxide 23 mmol/L (22-29); Chloride 102 mmol/L (98-107); Glomerular Filtration Rate 61.1 mL/min (90-130); Glucose 87 mg/dL (65-115); Osmolality Calculated 287 mOsm/kg (285-295); Potassium 4.1 mmol/L (3.5-5.1); Sodium 137 mmol/L (136-145)
[2020-12-21] MEDS: fluticasone nasal spray 16gm Btl 1 SPRAY INTRANASAL ×2 (08:07→17:41)
[2020-12-21] MEDS: buPROPion SR (12 HR) 150 mg Tablet PO ×2 (08:08→17:41)
[2020-12-21] MEDS: oxyCODONE 5 mg IR Tab/Cap 10 MG PO ×4 (08:09→20:46)
[2020-12-21] MEDS: tamsulosin 0.4 mg Capsule PO ×2 (08:09→17:41)
[2020-12-21] MEDS: pantoprazole DR 40 mg Tablet PO (08:09)
[2020-12-21] MEDS: nystatin 100,000 unit/mL UDC 5 mL 1000000 UNIT PO ×3 (08:09→20:47)
[2020-12-21] MEDS: predniSONE 10 mg Tablet PO (08:09)
[2020-12-21] MEDS: loratadine 10 mg Tablet PO (08:09)
[2020-12-21] MEDS: polyethylene glycol 3350 Pkt 17 gm PO (08:10)
[2020-12-21] MEDS: carvedilol 6.25 mg Tablet PO ×2 (08:10→17:41)
[2020-12-21] MEDS: aspirin 81 mg EC Tablet PO (08:48)
--- NOTE | 2020-12-21 11:08 | PC.CHAP ---
Pastoral Care Encounter/Spiritual Assessment Type of Contact [] Declined cracker off visit [] Patient/Family/Request visit [] Outpatient visit [] Follow-up visit [] Physician referral [] Code/Alert [x] Routine visit [] Staff referral [] Actively dying [] Patient sleeping [] Family support [] [] Out of room [] Palliative care [] [x] Receiving care in room [] Pre-surgical visit [] Trauma [] Long length of stay [] ICU visit [] Other: Relational/Emotional Strength [x] Patient feels connected with others/family/visitors/staff [] Distress [] Loneliness/isolation [] Abandonment Spirituality of Patient [] Person of [place] [] Attends Temple of their [place] [] Believes in Prayer [] Reads Bible or Scientologist materials [] There are Spiritual issues to be addressed Cms Expert Interventions [] Prayer [] Active listening [] Non-anxious presence [] Spiritual/emotional support [] Crisis/trauma care [] Spiritual counseling [] Bereavement support [] Provided bereavement packet [] Provided Bible/devotional materials [] Provided toy/stuffed animal, coloring book to patient or family member [] Provided Communion [] Anointing/[place] [] Salvation [] Completed spiritual assessment [] Other: Impact on Illness or Injury [] Angry [] Fearful [x] Anxious [] Often cries [] Exhaustion [] Unable to work [] Unable to attend scientologist [] Unable to walk/stand [] Unable to read [] Unable to drive [] Unable to eat/drink [] Unable to sleep [] Unable to be with family [] Patient intubated [] Other: Summary High blood pressuer is going home Time spent with patient 10 min
--- NOTE | 2020-12-21 11:14 | PC.NURSE ---
call Placed to Dr edouard patients statements of I feel like I'm Drowning for a little bit then it goes away instruction received to stop fluids and administer Lasix 40mg IVP x 1 Now
[2020-12-21] MEDS: FUROsemide 10 mg/mL SDV 4mL 40 MG IVP (11:30)
[2020-12-21] MEDS: albuterol 8 gm MDI 1 PUFF INHALATION ×2 (15:43→20:44)
--- NOTE | 2020-12-21 20:02 | P.PN_ITS ---
Subjective Subjective: Interval history: This morning creatinine is within normal limit. Patient is also complaining of shortness of breath I will stop fluid Medications: Reviewed: Yes Vitals/I&O/Wt Last Vital Signs Temp 98.2 F 12/21/20 18:55 Pulse 101 H 12/21/20 18:55 Resp 20 H 12/21/20 18:55 BP 121/83 12/21/20 18:55 Pulse Ox 96 12/21/20 15:49 12/21/20 12/21/20 12/21/20 06:59 14:59 22:59 Intake Total 1100 / 1580 1611.667 / 1611.667 Output Total 250 / 250 2350 / 2350 350 / 2700 Balance 850 / 1330 -738.333 / -738.333 -350 / -1088.333 Weight last 48 hrs Weight 187 lb Physical Exam Narrative: EXAM NARRATIVE: GENERAL: Patient is alert, awake and oriented x3. NECK: No jugular vein distension. HEENT: No cyanosis. No icterus. No pallor. HEART: Regular S1 and S2. No murmur, rub or gallop. LUNGS: Inspiratory crackles bilaterally. ABDOMEN: Soft, nontender and nondistended. Positive bowel sounds. No guarding, rebound or tenderness. CENTRAL NERVOUS SYSTEM: Grossly nonfocal. EXTREMITIES: Lower extremities without edema bilaterally. Data : 12/20/20 13:21 12/21/20 07:22 A&P Assessment and plan (1) CHF (congestive heart failure): Patient has inspiratory crackles. I will discontinue IV fluid and give him short of Lasix. Status: Acute Qualifiers: Heart failure type: systolic Heart failure chronicity: chronic Garth lified Code(s): I50.22 - Chronic systolic (congestive) heart failure (2) PVC (premature ventricular contraction): Continue to monitor. Patient is here for left heart cath before referred to EP Status: Acute (3) Atrial fibrillation: Rate controlled on anticoagulation Status: Acute Qualifiers: Atrial fibrillation type: paroxysmal Qualified Code(s): I48.0 - Paroxysmal atrial fibrillation (4) Acute renal failure (ARF): Improved. Status: Acute Qualifiers: Acute renal failure type: with other specified pathological lesion Qualified Code(s): N17.8 - Other acute kidney failure Attestations Medical Necessity Statement*: Patient require continuation hospitalization for above defined care. Coding Level of Care Code Established Pt Acute Nutrition Aides Teacher for Chg Fwd Patient Type Established History Detailed Exam Detailed Medical Decision Making Moderate Complexity Diagnoses CHF (congestive heart failure) I50.22 Heart failure type: systolic Heart failure chronicity: chronic PVC (premature ventricular contraction) I49.3 Atrial fibrillation I48.0 Atrial fibrillation type: paroxysmal Acute renal failure (ARF) N17.8 Acute renal failure type: with other specified pathological lesion
[2020-12-21] MEDS: amitriptyline 25 mg Tablet 50 MG PO (20:46)
[2020-12-21] MEDS: enoxaparin 80 mg/0.8 mL Syringe SUBCUT (20:46)
[2020-12-22] VITALS (75 sets, daily range): BP systolic 94–136; BP diastolic 71–104; PULSE 86–113; RESP 10–40; TEMP 36.6–36.9; O2SAT 93–98
--- NOTE | 2020-12-22 06:11 | PC.NURSE ---
Shift Note Frequent safety and comfort rounds continue. Orders and/or nursing care completed as indicated. Patient monitored for response to intervention and treatment(s). Education provided includes benadryl and left heart cath procedure. Patient verbalized complete understanding. Patient denies pain or needs this morning. No distress observed. Will continue to monitor.
[2020-12-22 06:52] LABS: Basophils # 0.1 10^3/uL (0.0-0.1); Basophils % 0.6 %; Eosinophils # 0.1 10^3/uL (0.0-0.8); Eosinophils % 1.6 %; Hematocrit 34.7 % (42.0-52.0); Hemoglobin 11.3 g/dL (11.7-16.6); Lymphocytes # 1.9 10^3/uL (0.8-4.8); Lymphocytes % 23.2 %; Mean Corpuscular HGB Conc 32.6 g/dL (30.0-36.0); Mean Corpuscular Hemoglobin 29.3 pg (28.0-34.0); Mean Corpuscular Volume 89.9 fl (80-94); Monocytes % 12.7 %; Neutrophils # 5.02 10^3/uL (1.8-7.7); Neutrophils % 61.5 %; Nucleated Red Blood Cells % 0 %; Platelet Count 281 10^3/cmm (130-400); Red Blood Count 3.86 10^6/uL (4.1-5.3); Red Cell Distribution Width 14.1 % (12.1-15.1); White Blood Count 8.2 10^3/uL (4.0-10.0)
[2020-12-22 07:08] LABS: Anion Gap 16.9 (5-19); Blood Urea Nitrogen 22 mg/dL (8-23); Calcium 9.4 mg/dL (8.5-10.5); Carbon Dioxide 23 mmol/L (22-29); Chloride 102 mmol/L (98-107); Glomerular Filtration Rate 61.1 mL/min (90-130); Glucose 91 mg/dL (65-115); Osmolality Calculated 289 mOsm/kg (285-295); Potassium 3.9 mmol/L (3.5-5.1); Sodium 138 mmol/L (136-145)
--- NOTE | 2020-12-22 07:22 | XACV_ITS ---
Wt: 85 kg BSA: 2.05 m2 Gender: Male : 1955 Any Known Allergies: Penicillins Exam Priority: Routine Procedure(s): Procedure Description: Diagnostic procedure Procedure Description: Left Heart Catheterization Procedure Description: Right Heart Catheterization Procedure Description: Left ventriculography Procedure Description: O2 saturation Procedure Description: Coronary Angiography Diagnostic Findings * Left Main has no disease. * Left Anterior Descending has no disease. * Circumflex has no disease. * Posterior Descending Right: luminal irregularities 20% stenosis, INDERJIT: 3 flow. * Coronary angiography shows right dominance. Conclusions 1. Moderately elevated PCWP 26mmHgModerately elevated post capillary pulmonary pressure, PA mean 35 mmHgRV 43/11 mmHgRA 14 mmHgCardiac output 5 L/min, cardiac index 3.0. 2. There is luminal irregularities coronary artery disease with one vessel disease. 3. The apex, mid posterior, mid septum, anterolateral, mid inferior amato are hypokinetic. 4. All other visualized amato normal. 5. Mild left ventricular systolic dysfunction. Ejection fraction of 40%. Recommendations * Continue current medical management and risk factor modification. Diagnostic RX Recommendation: medical therapy and/or counseling Ventriculography Ejection Fraction: 40.0 % Left Ventriculography Findings: * Moderately reduced LV function, with global hypokinesis. Pressures Phase:Rest AO : 84 / 73 ( 79 ) @ 10:59:00 AM 115 / 83 ( 99 ) @ 11:07:00 AM 117 / 71 ( 92 ) @ 11:07:00 AM LV : 113 / 5 / 33 @ 11:06:00 AM 119 / 21 / 43 @ 11:07:00 AM 112 / 12 / 38 @ 11:07:00 AM RV : 43 / 11 / 16 @ 10:50:00 AM PA : 51 / 25 ( 35 ) @ 10:49:00 AM RA : a wave = 19 v wave = 20 mean = 14 @ 10:51:00 AM PCW : a wave = 28 v wave = 34 mean = 26 @ 10:49:00 AM O2 Content Phase:Rest PA : O2 Content O2: 65.7 @ 11:07:00 AM Saturations Phase:Rest AO : 96 @ 10:59:00 AM RA : 67 @ 11:06:00 AM RV : 66 @ 11:07:00 AM PA : 66 @ 11:07:00 AM Cardiac Output Phase:Rest Liz : 5 @ 1:46:45 PM Liz Cardiac Index: 3 @ 1:46:45 PM Flow Phase:Rest Qp : 5 @ 1:46:45 PM Qs : 5 @ 1:46:45 PM Valves Phase:DefaultPhase AV : 0.0 @ 1:46:45 PM AV Mean Gradient: 0.0 @ 1:46:45 PM AV Flow: 623 @ 1:46:45 PM Clinical Evaluation EBL: 5mL-10mL Procedural Details Procedure Consent Obtained. Identified patient by full name and date of as verbalized by the patient/guarantor. Pre-Procedure Time Out. Does the consent match the physician's order: Yes. Accurate & Complete Informed Consent: Yes. Inpatient/Outpatient History & Physical on Chart: Yes. If H&P is completed, is and addenduem needed: No; If yes, is the addendum complete: N/A. Visualize and Verify Site with Patient/Guarantor: N/A. Relevant Radiology Images available: Yes. The risks, benefits, and alternatives of sedation and/or procedure were discussed by physician. The patient agrees to continue. Pre-op teaching completed and patient verbalized understanding. Procedure started. [facility] Clinical Fraility Score: 4: Vulnerable. Machine Finisher Indications: LV Dysfunction. Chest Pain Symptom Assessment: Non-anginal Chest Pain. Correct patient, site and procedure confirmed by cath team. PERRLA. Strong, equal hand artisan plasterer bilaterally. Lungs clear x 5 lobes. IV Site on Arrival: 18 gauge in the right anticubital. IV Site on Arrival: 18 gauge in the left anticubital. IV Fluids: 0.9% NaCl at KVO. 200 mL infused prior to operations label clerk. Pre Procedural Pulses: right radial was 2+. right groin was prepped with chloroprep then draped in the usual sterile fashion. right radial was prepped with chloroprep then draped in the usual sterile fashion. right brachial was prepped with chloroprep then draped in the usual sterile fashion. Physician notified. Baseline sample Acquired. HR: 96 BPM. Physician arrived. Suresh Rivera scrubbing. Physician scrubbed in. Immediate Pre-Procedure Time Out. Correct Patient: Yes; Correct Procedure: Yes; Correct Site: Yes; Correct Patient Position: Yes; Correct Supplies: Yes; Dried Flammable Prep: Yes; Blood Products Available: N/A;. Lidocaine 1% infiltrated to the right brachial. sheath wire inserted through the IV catheter. IV catheter removed OTW. [place]-Dave MON catheter inserted. Oximetry samples were obtained. Normal venous range: 60-85%. Normal arterial range: 95-100%. Pressure measurements obtained. [place]-Dave out. Lidocaine 1% infiltrated to the right radial. Arterial access obtained. A 5 occitan TIG catheter in over wire. Multiple views taken of left coronary artery. Machine Finisher Indications: Cardiomyopathy. Catheter redirected to the RCA. Multiple views taken of right coronary artery. Catheter removed over the glide wire. A 5 occitan Angled Pig catheter in over wire. EDP Sample taken: LV 113/5,33; HR: 96 BPM; SpO2: 96%. LV gram performed in BRYANT @ 10 mL/second for a total of 30 mL. EDP Sample taken: LV 119/21,43; HR: 96 BPM; SpO2: 96%. Pullback taken: LV 112/12,38; AO 115/83(99); Mean: 0mmHg, Peak to Peak: 0mmHg, SEP: 8sec/min; HR: 96 BPM; SpO2: 91%. Catheter removed over the exchange wire. A TR Band was successful obtaining hemostatsis at the Right Radial artery insertion site. A Manual Compression was successful obtaining hemostatsis at the Right Brachial Vein insertion site. Post Procedure: Pulses reassessed and unchanged. PERRLA. Strong, equal hand artisan plasterer bilaterally. No VTE prophylaxis required. Medication's Wasted: Nitro = 49.8 mcg. Medication's Wasted: Heparin = 1000 units. Medication's Wasted: Lidocaine 1% = 5 mL. Medication's Wasted: Other = Fentanyl 25 mcg. Total IV fluids: 50 mL. Contrast type used: Visipaque 320 mgI/mL, 500 mL bottle. Post-op diagnosis: Normal Coronaries. Complications: None. Estimated blood loss: 5mL-10mL. Procedure completed. Patient transferred by bed to 1st floor. Vital chart was stopped. Access Site Site: Right Brachial Vein Sheath Size: 6 Fr Hemostasis Method: Manual Compression Hemostasis Success: Successful Site: Right Radial artery Sheath Size: 6 Fr Hemostasis Method: TR Band Hemostasis Success: Successful Procedure Medications Start: 12:33 PM Stop: 12:33 PM Medication: Versed 1 mg and Fentanyl 25 mcg Amount: 1 Route: I.V. Start: 12:37 PM Stop: 12:37 PM Medication: Versed 1 mg and Fentanyl 25 mcg Amount: 1 Route: I.V. Start: 12:52 PM Stop: 12:52 PM Medication: Versed Amount: 0.5 mg Route: I.V. Start: 12:56 PM Stop: 12:56 PM Medication: Nitrogylcerin Amount: 200 mcg Route: I.A. Start: 12:56 PM Stop: 12:56 PM Medication: Fentanyl Amount: 25 mcg Route: I.V. Start: 12:57 PM Stop: 12:57 PM Medication: Heparin Amount: 5000 units Route: I.V. Start: 12:59 PM Stop: 12:59 PM Medication: Versed Amount: 0.5 mg Route: I.V. Start: 1:04 PM Stop: 1:04 PM Medication: Fentanyl Amount: 25 mcg Route: I.V. I, the attending physician, have reviewed and verified all procedure medications. Yes, all medications given per verbal order History/Risk Factors Hypertension: Yes Dyslipidemia: No Peripheral Arterial Disease (PAD): No Myocardial Infarction (VA): No Obesity: No Renal Disease: Yes Tobacco Use: Current/Recent(w/in 1 year) Prior Interventions PCI: No CABG: No Valve Surgery: No Report Signatures Finalized by Gurvinder Toledo MD on 01/08/2021 10:06 AM
[2020-12-22] MEDS: diphenhydrAMINE 50 mg Capsule PO (07:54)
[2020-12-22] MEDS: albuterol 8 gm MDI 1 PUFF INHALATION ×2 (08:34→23:43)
[2020-12-22] MEDS: nystatin 100,000 unit/mL UDC 5 mL 1000000 UNIT PO ×2 (11:44→21:25)
[2020-12-22] MEDS: predniSONE 10 mg Tablet PO (11:45)
[2020-12-22] MEDS: tamsulosin 0.4 mg Capsule PO (11:45)
[2020-12-22] MEDS: buPROPion SR (12 HR) 150 mg Tablet PO (11:46)
[2020-12-22] MEDS: pantoprazole DR 40 mg Tablet PO (11:47)
[2020-12-22] MEDS: aspirin 81 mg EC Tablet PO (11:47)
[2020-12-22] MEDS: loratadine 10 mg Tablet PO (11:47)
[2020-12-22] MEDS: oxyCODONE 5 mg IR Tab/Cap 10 MG PO ×2 (11:48→21:24)
[2020-12-22] MEDS: carvedilol 6.25 mg Tablet PO (11:48)
[2020-12-22] MEDS: fluticasone nasal spray 16gm Btl 1 SPRAY INTRANASAL (11:49)
--- NOTE | 2020-12-22 12:31 | W.PM.OPSUD ---
Surgery/Procedure H&P Update DATE OF PROCEDURE: December 22, 2020 DATE H&P PERFORMED: 12/20/20 H&P UPDATE INFORMATION: I have reviewed H&P completed within last 30 days, I have examined patient prior to procedure and No changes to prior documentation PREOP DIAGNOSIS: Left and right heart cath for new onset of heart failure LVdys PLANNED PROCEDURE: Operation Date: 12/22/20 08:30 Proposed Procedures p Cardiac Catheterization(Bilateral) - Gurvinder Toledo MD PATIENT REASSESSED PRIOR TO SEDATION, WITH NO CHANGE NOTED: Yes PHYSICAL EXAM: alert and clear to auscultation bilaterally AIRWAY EVAL/ANESTHESIA PLAN: ASA II and Risks, benefits & alternatives of sedation and/or procedure discussed ADDITIONAL INFORMATION: Patient has been explained all risk benefit and already for the procedure including stroke contrast-induced nephropathy major minor bleed CABG vascular surgery infection hematoma. He is a candidate for DAPT he would like to proceed with it
[2020-12-22 13:04] LABS: ABG PCO2 33.5 mmHg (35-45); ABG PH Result 7.48 (7.35-7.45); Base Excess ABG 1.7 mmol/L (-2.0-2.0); Blood Gas Operator Identificat GD; Blood Gas Sample Site Not specified; Blood Gas Sample Type Arterial; Carboxyhemoglobin 1.3 %THgb (0.4-20.1); HCO3 ABG 24.9 mmol/L (22-26); HGB O2 Sat 94.2 % (95-100); Ionized Calcium Level - ABG 1.3 mmol/L (1.1-1.4); Methemoglobin 0.9 % (0.4-1.5); Oxygen Saturation ABG 96.2; PO2 ABG 70.7 mmHg (80.0-100.0); Potassium Level - ABG 3.8 mmol/L (3.5-5.0); Total Hemoglobin 11.4 g/dL (14-18)
[2020-12-22 13:07] LABS: ABG PCO2 42.3 mmHg (35-45); Arterial Blood Gas Hematocrit 33.4 % (42-52); Base Excess ABG 1.5 mmol/L (-2.0-2.0); Blood Gas Operator Identificat GD; Blood Gas Sample Site Not specified; Blood Gas Sample Type Venous; Carboxyhemoglobin 1.4 %THgb (0.4-20.1); HCO3 ABG 26.4 mmol/L (22-26); HGB O2 Sat 64.4 % (95-100); Ionized Calcium Level - ABG 1.3 mmol/L (1.1-1.4); Potassium Level - ABG 3.6 mmol/L (3.5-5.0); Total Hemoglobin 10.9 g/dL (14-18)
[2020-12-22 13:10] LABS: ABG PCO2 43.9 mmHg (35-45); Alveolar-Arterial Oxygen Gradi 8.3 mmHg (5-10); Arterial Blood Gas Hematocrit 31.2 % (42-52); Base Excess ABG 2.3 mmol/L (-2.0-2.0); Blood Gas Operator Identificat GD; Blood Gas Sample Site Not specified; Blood Gas Sample Type Venous; Carboxyhemoglobin 1.4 %THgb (0.4-20.1); HCO3 ABG 27.4 mmol/L (22-26); HGB O2 Sat 64.1 % (95-100); Ionized Calcium Level - ABG 1.3 mmol/L (1.1-1.4); Oxygen Saturation ABG 65.7; PO2 ABG 33.9 mmHg (80.0-100.0); Potassium Level - ABG 3.8 mmol/L (3.5-5.0); Total Hemoglobin 10.2 g/dL (14-18)
[2020-12-22 13:14] LABS: ABG PCO2 42.4 mmHg (35-45); Alveolar-Arterial Oxygen Gradi 8.5 mmHg (5-10); Arterial Blood Gas Hematocrit 34.1 % (42-52); Base Excess ABG 1.4 mmol/L (-2.0-2.0); Blood Gas Operator Identificat GD; Blood Gas Sample Site Not specified; Blood Gas Sample Type Venous; Carboxyhemoglobin 1.3 %THgb (0.4-20.1); HCO3 ABG 26.4 mmol/L (22-26); HGB O2 Sat 65.1 % (95-100); Ionized Calcium Level - ABG 1.3 mmol/L (1.1-1.4); Oxygen Saturation ABG 66.7; PO2 ABG 34.3 mmHg (80.0-100.0); Potassium Level - ABG 3.6 mmol/L (3.5-5.0); Total Hemoglobin 11.1 g/dL (14-18)
--- NOTE | 2020-12-22 18:55 | PC.NURSE ---
TR Band removed no swelling hematoma or bleeding noted. Pt tolerated well. Pt had no c/o pain or discomfort at the present time. No needs voiced. Call light in reach.
--- NOTE | 2020-12-22 20:35 | PC.NURSE ---
Spoke with Dr Toledo to get instruction to restart held medications from procedure earlier today. Received orders to add Eliquis 5mg PO BID to begin tonight. Also received instruction to remove brachial pressure dressing from right arm. Removed dressing. Site free from bleeding or hematoma formation. Dressing in place to right wrist remains c,d,i without any s/s of bleeding or hematoma formation to this area as well. Patient is s/p left and right heart catheterization without intervention.
[2020-12-22] MEDS: temazepam 15 mg Capsule PO (21:25)
[2020-12-22] MEDS: amitriptyline 25 mg Tablet 50 MG PO (21:25)
[2020-12-22] MEDS: apixaban 5 mg Tablet PO (21:25)
--- NOTE | 2020-12-22 22:57 | P.PN_ITS ---
Subjective Subjective: Interval history: Patient has been admitted for IV fluid for acute renal failure with prerenal azotemia before proceeding with left and right heart cath Medications: Reviewed: Yes Vitals/I&O/Wt Last Vital Signs Temp 98.2 F 12/22/20 19:27 Pulse 108 H 12/22/20 22:11 Resp 27 H 12/22/20 21:24 BP 123/94 12/22/20 19:27 Pulse Ox 96 12/22/20 19:27 12/22/20 12/22/20 12/22/20 06:59 14:59 22:59 Intake Total 0 / 1611.667 660 / 660 Output Total 375 / 3375 450 / 450 Balance -375 / -1763.333 210 / 210 Physical Exam Narrative: EXAM NARRATIVE: GENERAL: Patient is alert, awake and oriented x3. NECK: No jugular vein distension. HEENT: No cyanosis. No icterus. No pallor. HEART: Regular S1 and S2. No murmur, rub or gallop. LUNGS: Inspiratory crackles bilaterally. ABDOMEN: Soft, nontender and nondistended. Positive bowel sounds. No guarding, rebound or tenderness. CENTRAL NERVOUS SYSTEM: Grossly nonfocal. EXTREMITIES: Lower extremities without edema bilaterally. Const: COMMON NORMALS: alert Resp: COMMON NORMALS: clear to auscultation bilaterally AUSCULTATION: clear to auscultation bilaterally Neuro: SENSORIUM/ORIENTATION: Yes alert Data : 12/22/20 06:36 12/23/20 05:23 A&P Assessment and plan (1) CHF (congestive heart failure): New onset of heart failure with LV dysfunction patient is here for left heart cath. Since creatinine is 1.9 and patient is in acute renal failure prerenal azotemia type. I will start patient on IV fluid. Status: Acute Qualifiers: Heart failure type: systolic Heart failure chronicity: chronic Qualified Code(s): I50.22 - Chronic systolic (congestive) heart failure (2) PVC (premature ventricular contraction): Patient has high burden of PVCs. Patient has been referred to us for left heart cath before ablation. Status: Acute (3) Atrial fibrillation: History of atrial fibrillation. Apixaban is on hold. We will switch patient to Lovenox Status: Acute Qualifiers: Atrial fibrillation type: paroxysmal Qualified Code(s): I48.0 - Paroxys mal atrial fibrillation (4) Acute renal failure (ARF): Stop diuretics. Start patient on IV fluid will reassess in the morning Status: Resolved Qualifiers: Acute renal failure type: with other specified pathological lesion Qualified Code(s): N17.8 - Other acute kidney failure Attestations Medical Necessity Statement*: Patient require continuation hospitalization for IV hydration Coding Level of Care Code Established Pt Acute Die Maintenance Technician for Chg Fwd Patient Type Established History Expanded Problem Focused Exam Expanded Problem Focused Medical Decision Making Moderate Complexity Diagnoses CHF (congestive heart failure) I50.22 Heart failure type: systolic Heart failure chronicity: chronic PVC (premature ventricular contraction) I49.3 Atrial fibrillation I48.0 Atrial fibrillation type: paroxysmal Acute renal failure (ARF) N17.8 Acute renal failure type: with other specified pathological lesion
[2020-12-23] VITALS (9 sets, daily range): BP systolic 98–133; BP diastolic 65–89; PULSE 95–108; RESP 14–22; TEMP 36.6–36.7; O2SAT 94–100
[2020-12-23 00:16] LABS: Anion Gap 14.2 (5-19); Blood Urea Nitrogen 20 mg/dL (8-23); Calcium 8.9 mg/dL (8.5-10.5); Carbon Dioxide 23 mmol/L (22-29); Chloride 100 mmol/L (98-107); Glomerular Filtration Rate 67.6 mL/min (90-130); Glucose 91 mg/dL (65-115); Osmolality Calculated 278 mOsm/kg (285-295); Potassium 4.2 mmol/L (3.5-5.1); Sodium 133 mmol/L (136-145)
--- NOTE | 2020-12-23 02:39 | PC.NURSE ---
Patient resting with eyes closed. No distress observed. Dressing to right wrist remains c,d,i with no s/s of bleed or hematoma formation observed.
--- NOTE | 2020-12-23 05:46 | PC.NURSE ---
Shift Note Frequent safety and comfort rounds continue. Orders and/or nursing care completed as indicated. Patient monitored for response to intervention and treatment(s). Education provided includes post cath site care and restrictions. Patient verbalized complete understanding. Dressing to right wrist remains c,d,i with no s/s of bleeding or hematoma formation observed. Denies pain or needs. No distress observed. Will continue to monitor.
[2020-12-23 06:40] LABS: Anion Gap 14.9 (5-19); Blood Urea Nitrogen 17 mg/dL (8-23); Calcium 9.3 mg/dL (8.5-10.5); Carbon Dioxide 23 mmol/L (22-29); Chloride 102 mmol/L (98-107); Glomerular Filtration Rate 67.6 mL/min (90-130); Glucose 89 mg/dL (65-115); Osmolality Calculated 283 mOsm/kg (285-295); Potassium 3.9 mmol/L (3.5-5.1); Sodium 136 mmol/L (136-145)
[2020-12-23] MEDS: albuterol 8 gm MDI 1 PUFF INHALATION (08:24)
[2020-12-23] MEDS: aspirin 81 mg EC Tablet PO (08:50)
[2020-12-23] MEDS: apixaban 5 mg Tablet PO (08:50)
[2020-12-23] MEDS: oxyCODONE 5 mg IR Tab/Cap 10 MG PO (08:51)
[2020-12-23] MEDS: nystatin 100,000 unit/mL UDC 5 mL 1000000 UNIT PO (08:54)
[2020-12-23] MEDS: buPROPion SR (12 HR) 150 mg Tablet PO (09:19)
[2020-12-23] MEDS: carvedilol 6.25 mg Tablet PO (09:19)
[2020-12-23] MEDS: predniSONE 10 mg Tablet PO (09:19)
[2020-12-23] MEDS: loratadine 10 mg Tablet PO (09:19)
[2020-12-23] MEDS: pantoprazole DR 40 mg Tablet PO (09:20)
[2020-12-23] MEDS: tamsulosin 0.4 mg Capsule PO (09:20)
--- NOTE | 2020-12-23 09:58 | PC.SOCIAL ---
Pg 2 IMM Explained to pt Pg 2 IMM. No questions voiced. Provided pt a copy. Initialed, dated, & timed a copy & placed in chart.
--- NOTE | 2020-12-23 11:59 | PM.DCS ---
Discharge Providers Date of Discharge: December 23, 2020 Attending Provider at Discharge: Gurvinder Toledo MD Primary Care Provider: Debbie Cardoso MD Diagnoses at Discharge Discharge Diagnosis (1) CHF (congestive heart failure): Status: Acute Qualifiers: Heart failure chronicity: chronic Heart failure type: systolic Qualified Code(s): I50.22 - Chronic systolic (congestive) heart failure (2) PVC (premature ventricular contraction): Status: Acute (3) Atrial fibrillation: Status: Acute Qualifiers: Atrial fibrillation type: paroxysmal Qualified Code(s): I48.0 - Paroxysmal atrial fibrillation (4) Acute renal failure (ARF): Status: Resolved Qualifiers: Acute renal failure type: with other specified pathological lesion Qualified Code(s): N17.8 - Other acute kidney failure Reason for Visit Reason for Visit: [id number] chronic systolic congestive heart failure Hospital Course Hospital Course 65-year-old male past medical history significant for new onset of heart failure and atrial fibrillation hypertension was referred to us for left and right heart cath for LV dysfunction and new onset of heart failure. Patient was noted to have creatinine of 1.9 which was significantly high for contrast-induced nephropathy. Patient was admitted with IV hydration over next 2 days patient was given IV fluid in between patient became volume overloaded which was dealt with IV Lasix. Creatinine improved from 1.9-1.2. Patient underwent left and right heart cath noted to have nonischemic cardiomyopathy with normal coronaries. Left ventricle end-diastolic pressure was moderately elevated patient had mild post capillary hypertension. Optimal medical management was advised. Due to nonavailability of transportation patient was not able to go home post angiogram. This morning patient is doing fine he has availability of transportation. He is being discharged home. Advised to follow-up with Dr. Jha. Physical Exam Narrative: EXAM NARRATIVE: GENERAL: Patient is alert, awake and oriented x3. NECK: No jugular vein distension. HEENT: No cyanosis. No icterus. No pallor. HEART: Regular S1 and S2. No murmur, rub or gallop. LUNGS: Inspiratory crackles bilaterally. ABDOMEN: Soft, nontender and nondistended. Positive bowel sounds. No guarding, rebound or tenderness. CENTRAL NERVOUS SYSTEM: Grossly nonfocal. EXTREMITIES: Lower extremities without edema bilaterally. Const: COMMON NORMALS: alert Resp: COMMON NORMALS: clear to auscultation bilaterally AUSCULTATION: clear to auscultation bilaterally Neuro: SENSORIUM/ORIENTATION: Yes alert Discharge Data Data Completed and Pending: Pending at discharge Category Date Time Status GOLD BUYER request for service Routin e Exams 12/20/20 13:00 Taken GOLD BUYER request for service Routin e Exams 12/22/20 07:22 Ordered Labs from last 24 hours 12/23/20 12/22/20 12/22/20 05:23 23:43 12:55 Specimen Type Venous Sample Site Not specified ABG pH 7.40 ABG pCO2 42.4 ABG pO2 34.3 L* ABG HCO3 26.4 H ABG O2 Saturation 66.7 ABG Base Excess 1.4 Nile Test N/a A-a O2 Gradient 8.5 Hematocrit 34.1 L Hgb O2 Saturation 65.1 L Carboxyhemoglobin 1.3 Methemoglobin 1.0 Total Hemoglobin 11.1 L Sodium 136 133 L 141.0 Potassium 3.9 4.2 3.6 Glucose 89 91 98.0 Ionized Calcium 1.3 O2 Delivery Device Not Reportable FiO2 Database Marketing Analyst ID Gd Chloride 102 100 Carbon Dioxide 23 23 Anion Gap 14.9 14.2 BUN 17 20 Creatinine 1.1 1.1 GFR Calculation 67.6 L 67.6 L Calculated Osmolal ity 283 L 278 L Calcium 9.3 8.9 12/22/20 12/22/20 12/22/20 12:55 12:55 12:55 Specimen Type Venous Venous Arterial Sample Site Not specified Not specified Not specified ABG pH 7.40 7.40 7.48 H ABG pCO2 43.9 42.3 33.5 L ABG pO2 33.9 L* 34.0 L* 70.7 L ABG HCO3 27.4 H 26.4 H 24.9 ABG O2 Saturation 65.7 66.0 96.2 ABG Base Excess 2.3 H 1.5 1.7 Nile Test N/a N/a N/a A-a O2 Gradient 8.3 Not Reportable 5.0 Hematocrit 31.2 L 33.4 L 35.0 L Hgb O2 Saturation 64.1 L 64.4 L 94.2 L Carboxyhemoglobin 1.4 1.4 1.3 Methemoglobin 1.0 1.0 0.9 Total Hemoglobin 10.2 L 10.9 L 11.4 L Sodium 142.0 142.0 141.0 Potassium 3.8 3.6 3.8 Glucose 103.0 97.0 103.0 Ionized Calcium 1.3 1.3 1.3 O2 Delivery Device Not Reportable Not Reportable Not Reportable FiO2 21.0 Database Marketing Analyst ID Gd Gd Gd Chloride Carbon Dioxide Anion Gap BUN Creatinine GFR Calculation Calculated Osmolal ity Calcium Vitals: Last Vital Signs Temp 98.0 F 12/23/20 11:43 Pulse 101 H 12/23/20 09:30 Resp 16 12/23/20 11:43 BP 120/85 12/23/20 11:43 Pulse Ox 100 12/23/20 11:43 Discharge Plan Discharge Patient Disposition: Home Prescriptions: Continued calcium carbonate [Calcium 600] 600 mg calcium (1,500 mg) tablet 600 mg PO DAILY@07 RF: 0 carvedilol 6.25 mg tablet 6.25 mg PO BID Qty: 60 RF: 0 cholecalciferol (vitamin D3) 25 mcg (1,000 unit) capsule 25 mcg PO DAILY RF: 0 ipratropium-albuterol 0.5 mg-3 mg(2.5 mg base)/3 mL solution for nebulization 3 ml inhalation Q4H PRN (Reason: wheezing) Qty: 90 RF: 3 budesonide-formoterol [Symbicort] 160-4.5 mcg/actuation HFA aerosol inhaler 2 puff inhalation BID Qty: 10.2 RF: 3 Combivent Respimat 20-100 mcg/actuation mist 1 puff inhalation Q6H PRN (Reason: wheezing) Qty: 4 RF: 3 Hold Instructions: Doctor's Order aspirin 325 mg tablet 81 mg PO DAILY RF: 0 fluticasone propionate [Flonase Allergy Relief] 50 mcg/actuation spray,suspension 1 spray intranasal BID Qty: 50 RF: 2 loratadine 10 mg tablet 10 mg PO DAILY 30 Days Qty: 30 RF: 2 nystatin 100,000 unit/mL suspension 1,000,000 unit PO TID 14 Days Qty: 480 RF: 0 esomeprazole magnesium [Nexium] 40 mg capsule,delayed release(DR/EC) 40 mg PO ONCE RF: 0 terbinafine HCl [Antifungal (terbinafine)] 1 % cream 1 applic topical DAILY 14 Days Qty: 30 RF: 0 prednisone 10 mg tablet 10 mg PO DAILY Qty: 90 RF: 1 Hold Instructions: Resume on 08/15/20. until you see rheumatology atovaquone [Mepron] 750 mg/5 mL suspension 1,500 mg PO DAILY Qty: 210 RF: 2 Spiriva Respimat 2.5 mcg/actuation mist 2 puff inhalation DAILY Qty: 4 RF: 3 bupropion HCl (smoking deter) 150 mg tablet extended release 12 hr 150 mg PO BID MDD 300 mg Qty: 60 RF: 3 rifabutin 150 mg capsule 150 mg PO BID 15 Days Qty: 30 RF: 0 oxycodone 10 mg tablet 10 mg PO QID 30 Days Qty: 120 RF: 0 oxycodone 10 mg tablet 10 mg PO QID PRN (Reason: pain) 30 Days Qty: 120 RF: 0 potassium chloride 20 mEq tablet,ER particles/crystals 20 meq PO DAILY@07 RF: 0 polyethylene glycol 3350 [Miralax] 17 gram/dose powder 17 g PO DAILY Qty: 238 RF: 0 Eliquis 5 mg tablet See Rx Instructions .ROUTE .COMPLEX Qty: 60 RF: 0 amitriptyline 50 mg tablet See Rx Instructions .ROUTE .COMPLEX Qty: 30 RF: 0 torsemide 20 mg tablet 20 mg PO DAILY Qty: 60 RF: 2 tamsulosin 0.4 mg capsule 0.4 mg PO BID Qty: 60 RF: 12 albuterol sulfate 90 mcg/actuation HFA aerosol inhaler See Rx Instructions .ROUTE .COMPLEX Qty: 18 RF: 0 magnesium 100 mg Tablet 100 mg PO DAILY@07 PRN (Reason: unknown) RF: 0 Discharge Orders: Discharge Order (Routine); Ordered 12/23/20 Ordered By: Gurvinder Toledo Referrals: Breanne Jha MD [Physician] - 2 weeks ([facility] will be calling to schedule a cardiology followup with Dr. Jha to be seen in approx. 2 to 3 weeks. If you don't hear from them by Friday afternoon, please give them a call. Thank you) Diet: Cardiac Activity: Increase activity as tolerated Patient Instructions: Heart Healthy Diet (DC), CHF Stoplight, Post Angiogram Home Care Instructions Activity Restrictions/Additional Instructions: Follow-up with Dr. Jha in 2 to 3 weeks. Discharge Date/Time: 12/23/20 13:02 Discharge Attestations Time Spent in Discharge Care*: less than 30 min Specific Discharge Activities: educating patient Quality Metrics Clinical Quality Measures During this hospital stay, did patient experience: None Coding Level of Care Code Established Pt Acute Chg FW DC note Patient Type Established History Expanded Problem Focused Exam Expanded Problem Focused Diagnoses CHF (congestive heart failure) I50.22 Heart failure chronicity: chronic Heart failure type: systolic PVC (premature ventricular contraction) I49.3 Atrial fibrillation I48.0 Atrial fibrillation type: paroxysmal Acute renal failure (ARF) N17.8 Acute renal failure type: with other specified pathological lesion
== END 2020-12-23 13:02 | disposition home or self-care (01) ==
LOC: CCL 12:50 → CSU 12-21 08:47
PROVIDERS: PCP Family Medicine; Visit Provider Internal Medicine Cardiovascular Disease
DX: I11.0 Hypertensive heart disease with heart failure (principal); I50.22 Chronic systolic (congestive) heart failure; E78.5 Hyperlipidemia, unspecified; I50.1 Left ventricular failure, unspecified; I49.3 Ventricular premature depolarization; I48.0 Paroxysmal atrial fibrillation; N17.8 Other acute kidney failure; R39.2 Extrarenal uremia
CPT/HCPCS: 36415; 80048; 80051; 82330; 82805; 85025; 85610; 93453; 94640; 96372; C1751; C1769; C1887; C1894; J1644; J1650; J1940; J2250; J3010; J3490; J3535; J7030; J7512; Q0163; Q9967

== ENCOUNTER → 2020-12-27 08:15 | Outpatient (BNVA) | payer MEDICARE, MEDICAID, SELFPAY | PROVIDERS: PCP Family Medicine; Visit Provider Anesthesiology | DX: G89.29 Other chronic pain (principal); M54.16 Radiculopathy, lumbar region; M47.812 Spondylosis without myelopathy or radiculopathy, cervical region; Z79.891 Long term (current) use of opiate analgesic; Z79.899 Other long term (current) drug therapy; Z87.891 Personal history of nicotine dependence | CPT/HCPCS: 99213 ==

== ENCOUNTER → 2021-01-04 11:05 | Outpatient (BNVA) | payer MEDICARE, MEDICAID, SELFPAY | PROVIDERS: PCP Family Medicine; Visit Provider Family Medicine | DX: N18.9 Chronic kidney disease, unspecified (principal); J44.9 Chronic obstructive pulmonary disease, unspecified | CPT/HCPCS: 80053; 85025 ==

== ENCOUNTER → 2021-02-06 11:13 | Outpatient (BNVA) | payer MEDICARE, MEDICAID, SELFPAY | PROVIDERS: PCP Family Medicine; Visit Provider Internal Medicine Rheumatology | DX: M05.79 Rheumatoid arthritis with rheumatoid factor of multiple sites without organ or systems involvement (principal); Z79.899 Other long term (current) drug therapy; R91.8 Other nonspecific abnormal finding of lung field; A44.9 Bartonellosis, unspecified; M47.896 Other spondylosis, lumbar region; M47.892 Other spondylosis, cervical region; Z86.19 Personal history of other infectious and parasitic diseases | CPT/HCPCS: 99214 ==

== ENCOUNTER → 2021-02-07 10:24 | Outpatient (BNVA) | payer MEDICARE, MEDICAID, SELFPAY | PROVIDERS: PCP Family Medicine; Visit Provider Urology | DX: R35.89 Other polyuria (principal) | CPT/HCPCS: 81003 ==

== ENCOUNTER → 2021-02-22 08:29 | Outpatient (BNVA) | payer MEDICARE, MEDICAID, SELFPAY | PROVIDERS: PCP Family Medicine; Visit Provider Anesthesiology | DX: Z02.89 Encounter for other administrative examinations (principal); G89.29 Other chronic pain; M54.16 Radiculopathy, lumbar region; M47.812 Spondylosis without myelopathy or radiculopathy, cervical region; Z79.891 Long term (current) use of opiate analgesic; Z79.899 Other long term (current) drug therapy | CPT/HCPCS: 99214 ==

== ENCOUNTER → 2021-02-26 11:09 | Outpatient (BNVA) | payer MEDICARE, MEDICAID, SELFPAY | PROVIDERS: PCP Family Medicine; Visit Provider Family Medicine | DX: Z20.822 Contact with and (suspected) exposure to COVID-19 (principal); J06.9 Acute upper respiratory infection, unspecified; J41.0 Simple chronic bronchitis; N18.9 Chronic kidney disease, unspecified; I13.0 Hypertensive heart and chronic kidney disease with heart failure and stage 1 through stage 4 chronic kidney disease, or unspecified chronic kidney disease; I50.22 Chronic systolic (congestive) heart failure | CPT/HCPCS: 71046; 80053; 83735; 83880; 85025; 87635 ==

== ENCOUNTER 2021-03-15 08:41 | Outpatient (CLI) | payer MEDICARE, MEDICAID, SELFPAY ==
[2021-03-15 09:21] LABS: Basophils % 0.3 %; Eosinophils # 0.1 10^3/uL (0.0-0.8); Eosinophils % 0.8 %; Hematocrit 37.3 % (42.0-52.0); Lymphocytes # 1.4 10^3/uL (0.8-4.8); Mean Corpuscular HGB Conc 32.2 g/dL (30.0-36.0); Mean Corpuscular Hemoglobin 29.5 pg (28.0-34.0); Mean Corpuscular Volume 91.6 fl (80-94); Mean Platelet Volume 10.3 fL (7.4-10.4); Monocytes # 1.1 10^3/uL (0.2-0.9); Monocytes % 9.2 %; Neutrophils # 8.95 10^3/uL (1.8-7.7); Nucleated Red Blood Cells % 0 %; Platelet Count 282 10^3/cmm (130-400); Red Blood Count 4.07 10^6/uL (4.1-5.3); Red Cell Distribution Width 14.5 % (12.1-15.1); White Blood Count 11.6 10^3/uL (4.0-10.0)
[2021-03-15 09:28] LABS: Erythrocyte Sedimentation Rate 38 mm/hr (0-10)
[2021-03-15 09:43] LABS: Alanine Aminotransferase 22 U/L (0-41); Albumin Level 4.3 g/dL (3.5-5.2); Alkaline Phosphatase 82 IU/L (40-130); Anion Gap 20.3 (5-19); Aspartate Amino Transferase 18 U/L (0-40); Blood Urea Nitrogen 20 mg/dL (8-23); C Reactive Protein 48.6 mg/L (0.0-4.9); Calcium 10.2 mg/dL (8.5-10.5); Carbon Dioxide 24 mmol/L (22-29); Chloride 99 mmol/L (98-107); Globulin 3.4 g/dL (1.3-4.6); Glomerular Filtration Rate 55.8 mL/min (90-130); Glucose 80 mg/dL (65-115); Iron 46 ug/dL (59-158); Osmolality Calculated 292 mOsm/kg (285-295); Potassium 3.3 mmol/L (3.5-5.1); Sodium 140 mmol/L (136-145); Total Bilirubin 0.3 mg/dL (0.15-1.2); Total Iron Binding Capacity 286 mcg/dl; Total Protein 7.7 g/dL (6.6-8.7); Unsaturated Iron Binding 240 ug/dL (112-347)
[2021-03-15 09:56] LABS: Vitamin B12 545 pg/mL (232-1245)
--- NOTE | 2021-03-15 19:48 | ONC FU_ITS ---
Dr. Marinelli Patient Follow-Up Note Patient: Herrera Quintana Unit #: [id number]: 1955 Dicatated By: German Marinelli M.D.Date of Visit:Mar 15, 2021 Onc Med Follow-up/Prog Note Chief Complaint: Monoclonal gammopathy. History of Present Illness: This is a 65 year-old man with IgG kappa monoclonal gammopathy. He had initially presented to rheumatology with polyarthritis in 2012. 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 He eventually obtained a negative hepatitis C viral load around May 2014 after a 6-month course of treatment with Sovaldi/interferon. At that point he had continued treatment with hydroxychloroquine and low-dose prednisone for the arthritis. His evaluation during that time also demonstrated significant degenerative disease of the spine. In May 2019 he was seen by Dr. Jha for new onset of congestive heart failure, apparently due to nonischemic cardiomyopathy, as his echocardiogram showed global left ventricular hypokinesis with ejection fraction estimated at 40% and with no evidence of ischemia on myocardial perfusion scan. He had associated atrial fibrillation. On 07/06/2020 he was admitted to the hospital with a 2-day history of fever, chills, fatigue, malaise, shortness of breath, and cough. His laboratory studies showed some evidence of acute renal injury and he had very significantly elevated sed rate and CRP levels. CT pulmonary angiogram showed no evidence of pulmonary embolus. There were noted to be features commonly reported with COVID-19 pneumonia and there was evidence of enlarged left axillary lymph node measuring 1.7 cm. He continued to have fever on broad-spectrum antibiotic coverage. Further evaluation with CT of the chest, abdomen, and pelvis on 07/09/2020 continue to show nonspecific foci of groundglass infiltration in the right upper lobe and left axillary lymphadenopathy. There were no acute findings in the abdomen/pelvis. Multiple blood cultures remained negative. Head MRI on 07/12/2020 showed an ovoid cystic cavity with mild increased signal in the left temporal lobe and with adjacent temporal lobe increased T2 signal, suggestive of possible cerebritis or developing brain abscess. His lumbar puncture on 07/13/2020 was unrevealing. Multiple serologic studies were negative. He was discharged home on 07/15/2020 to continue empiric antibiotic coverage with doxycycline. On 08/01/2020 he underwent left axillary lymph node biopsy. Pathology showed necrotizing, caseating granulomas. There was no malignancy identified. There were no microorganisms identified by AFB or GMS stains and the Warthin-Starry stain was negative for spirochetes. In the meantime, his further laboratory studies on 07/26/2020 included serum protein electrophoresis which showed a poorly defined possible M spike migrating in the gamma region. It quantitated 0.2 g/dL. On immunofixation it was noted to be reactive with IgG and kappa antisera. His free light chain assay showed elevated free kappa light chain at 38.0 mg/L, free lambda light chain in the upper normal range at 24.1 mg/L and kappa lambda ratio in the upper normal range at 1.58. I had seen him initially on 08/15/2020. At that point the clinical presentation appeared most consistent with an infectious process. His CBC showed hemoglobin 11.4 g with white blood cell count 12,200 and platelet count 280,000. Sed rate remained significantly elevated at 88 mm/h. Comprehensive metabolic profile was unremarkable. 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 He was then seen by Dr. Mcginnis, and he underwent an extensive infectious disease evaluation. He completed 4 weeks of antibiotic therapy for suspicious Bartonella serology, but the Bartonella PCR was found to be negative. The remainder of his evaluation also was negative, and an underlying infectious process was not identified. His cardiac catheterization on 12/22/2020 confirmed nonischemic cardiomyopathy. The left ventricular ejection fraction was 40%. He is seen for a followup visit. He has continued to have low energy since July. He has very limited activity tolerance. He is able to do some light work, but with a lot of rest. ECOG score is 1. He still has good appetite. He is trying to lose weight. He is no longer having fever, and he does not complain of night sweating. He sometimes has sinus drainage. He also has had some soreness on the right side of his throat, though not recently. He has shortness of breath, and he sometimes has cough. He has not been having chest pain. He does have heartburn at times. He was having constipation, but that seems to have resolved. He has not been aware of any blood in the stool. He has frequent urination. He says his joint pain has been bad, especially in his hands. He does not complain of headache or dizziness. He has no numbness/paresthesia or other focal neurologic symptoms. Medications: Albuterol Sulfate (sensor) 1 - 2 Puff(s) (of 108 (90 base) mcg/act) Aerosol Powder, Breath Activated Inhalation q 6 hours PRN, Amitriptyline HCl 1 (25 mg) Tablet Oral at bedtime, Aspirin 1 (81 mg) Tablet, chewable Oral daily, Calcium 1 (600 mg) Tablet Oral daily, Carvedilol 1 (6.25 mg) Tablet Oral b.i.d., Eliquis 1 (5 mg) Tablet Oral b.i.d., Flonase (50 mcg/act) Suspension Nasal Take as Directed, hydroCHLOROthiazide 1 (25 mg) Tablet Oral every am, Magnesium 1 (100 mg) Tablet Oral daily, Metoprolol Tartrate 1 (50 mg) Tablet Oral b.i.d., oxyCODONE HCl 1 (5 mg) Tablet Oral q 4 hours, Pantoprazole Sodium 1 (40 mg) Tablet, enteric coated Oral daily, Symbicort 2 Puff(s) (of 80-4.5 mcg/act) Aerosol Inhalation q 12 hours Allergies: Penicillins Vital Signs: Performed on Mar 15, 2021 11:44 Height - 69.00 in Weight - 186.8 lbs (HIGH) BSA - 2.01 sq.m BMI - 27.59 Temperature - 97.0 F (LOW) Pulse - 74 /min Respiration - 16 /min BP - 112/74 mm(hg) O2 Sat - 95 % (LOW) Pain - 3 Fatigue - 8 Physical Examination: Constitutional - He appears generally weak, Eyes - Sclerae nonicteric. Conjunctivae clear, ENMT - No lesions noted in the oral cavity, Hematologic/Lymphatic - No cervical, clavicular, or axillary adenopathy noted, Respiratory - Lungs sound clear, Cardiovascular - Heart rhythm is irregular. There is no murmur, gallop, or rub noted, Abdomen - Mildly distended and tympanic. Liver and spleen are not enlarged. There is no abdominal mass or ascites noted and there is no inguinal adenopathy, Extremities - No edema. There are scattered purpuric lesions on both arms, Neurologic - No focal neurologic deficits noted. Lab/Imaging: Test performed on Mar 15, 2021 09:06 Iron 46 mcg/dL Sodium 140 mmol/L Vitamin B12 545 pg/mL Iron Binding Capacity (TIBC) 286 mcg/dl Potassium 3.3 mmol/L % Iron Saturation 16.0 % Chloride 99 mmol/L CO2 24 mmol/L UIBC 240 mcg/dL Anion Gap 20.3 BUN 20 mg/dL Creatinine 1.3 mg/dL Cr Clearance (Est) 69.71 mL/min eGFR 55.8 mL/min Glucose 80 mg/dL Osmolality - Calculated 292 mOsm/kg Calcium 10.2 mg/dL Protein, Total 7.7 g/dL Albumin 4.3 g/dL Globulin 3.4 g/dL Bilirubin, Total 0.3 mg/dL ALT (SGPT) 22 U/L AST (SGOT) 18 U/L Alkaline Phosphatase 82 IU/L ESR (Sed Rate) 38 mm/hr WBC 11.6 10 3/uL RBC 4.07 10 6/uL HGB 12.0 g/dL HCT 37.3 % MCV 91.6 fl MCH 29.5 pg MCHC 32.2 g/dL RDW 14.5 % Platelet Count 282 10 3/cmm MPV 10.3 fL Neutrophils 8.95 10 3/uL Lymphocytes 1.4 10 3/uL Monocytes 1.1 10 3/uL Eosinophils 0.1 10 3/uL Basophils 0.0 10 3/uL Neutrophil % 77.0 % Lymphocyte % 12.0 % Monocyte % 9.2 % Eosinophil % 0.8 % Basophils % 0.3 % NRBC % 0 % Problem List: 1. Low level IgG kappa monoclonal gammopathy. Given the clinical picture, the likelihood of myeloma or other plasma cell dyscrasia is very low. 2. He has had a recent febrile illness with very high inflammatory markers and with left axillary lymph node biopsy showing necrotizing granulomas. This is consistent with an underlying infectious etiology, though a specific cause has not been identified. 3. He has history of hepatitis C associated polyarthritis for which he has been on long-term immunosuppressive therapy. 4. Nonischemic cardiomyopathy with congestive heart failure. 5. Chronic atrial fibrillation. 6. Hypertension. 7. COPD. 8. GERD. 9. Degenerative disease of the spine. 10. Benign prostatic hypertrophy. Problems Addressed with this Encounter and Plan: Patient with low level IgG kappa monoclonal gammopathy. As yet the clinical significance is undetermined. It was discovered in association with a febrile illness and very high inflammatory markers and with left axillary lymph node biopsy showing necrotizing granulomas. The clinical picture appeared to be most consistent with an underlying infectious etiology, but none was ever identified. He has been confirmed to have nonischemic cardiomyopathy. At this point he continues to have very marginal performance status. It remains unclear to what extent the monoclonal gammopathy may be contributing. Since his initial visit he has developed chronic kidney disease. His repeat protein electrophoresis studies are pending. He will have further evaluation as indicated, particularly if there has been a significant increase in the M protein. Signed By: German Marinelli M.D. <<Signature on File>>
[2021-03-16 08:27] LABS: PROTEIN, TOTAL 7.3 g/dL (6.1-8.1)
[2021-03-16 14:33] LABS: KAPPA/LAMBDA LIGHT CHAINS FREE 2.09 (0.26-1.65); LAMBDA LIGHT CHAIN, FREE, SERU 17.2 mg/L (5.7-26.3)
[2021-03-16 15:23] LABS: ALBUMIN 3.9 g/dL (3.8-4.8); ALPHA 1 GLOBULIN 0.4 g/dL (0.2-0.3); ALPHA 2 GLOBULIN 1.3 g/dL (0.5-0.9); BETA 1 GLOBULIN 0.4 g/dL (0.4-0.6); BETA 2 GLOBULIN 0.4 g/dL (0.2-0.5); GAMMA GLOBULIN 0.9 g/dL (0.8-1.7)
== END 2021-03-15 08:42 | disposition home or self-care (01) ==
LOC: ONCMED 08:46
PROVIDERS: PCP Family Medicine; Visit Provider Internal Medicine Medical Oncology
DX: D47.2 Monoclonal gammopathy (principal); R50.9 Fever, unspecified; Z86.19 Personal history of other infectious and parasitic diseases; I42.8 Other cardiomyopathies; I50.9 Heart failure, unspecified; I48.20 Chronic atrial fibrillation, unspecified; I10 Essential (primary) hypertension; J44.9 Chronic obstructive pulmonary disease, unspecified; K21.9 Gastro-esophageal reflux disease without esophagitis; M47.9 Spondylosis, unspecified; N40.0 Benign prostatic hyperplasia without lower urinary tract symptoms; Z79.899 Other long term (current) drug therapy
CPT/HCPCS: 36415; 80053; 82607; 83540; 83550; 83883; 84155; 84165; 85025; 85651; 86140; 99214

== ENCOUNTER → 2021-03-20 13:48 | Outpatient (BNVA) | payer MEDICARE, MEDICAID, SELFPAY | PROVIDERS: PCP Family Medicine; Visit Provider Internal Medicine Cardiovascular Disease | DX: J44.9 Chronic obstructive pulmonary disease, unspecified (principal); Z20.822 Contact with and (suspected) exposure to COVID-19 | CPT/HCPCS: 87635 ==

== ENCOUNTER → 2021-04-03 11:08 | Outpatient (BNVA) | payer MEDICARE, MEDICAID, SELFPAY | PROVIDERS: PCP Family Medicine; Visit Provider Family Medicine | DX: I12.9 Hypertensive chronic kidney disease with stage 1 through stage 4 chronic kidney disease, or unspecified chronic kidney disease; N18.9 Chronic kidney disease, unspecified; Z13.220 Encounter for screening for lipoid disorders; Z13.6 Encounter for screening for cardiovascular disorders | CPT/HCPCS: 80048; 80061 ==

== ENCOUNTER → 2021-04-26 13:52 | Outpatient (BNVA) | payer MEDICARE, MEDICAID, SELFPAY | PROVIDERS: PCP Family Medicine; Visit Provider Family Medicine | DX: I48.0 Paroxysmal atrial fibrillation (principal); N18.9 Chronic kidney disease, unspecified; J44.9 Chronic obstructive pulmonary disease, unspecified; I26.99 Other pulmonary embolism without acute cor pulmonale; I11.0 Hypertensive heart disease with heart failure; I50.22 Chronic systolic (congestive) heart failure; M54.16 Radiculopathy, lumbar region; G89.29 Other chronic pain; F32.A Depression, unspecified; M47.812 Spondylosis without myelopathy or radiculopathy, cervical region | CPT/HCPCS: 80053; 85025 ==

== ENCOUNTER → 2021-05-15 13:17 | Outpatient (BNVA) | payer MEDICARE, MEDICAID, SELFPAY | PROVIDERS: PCP Family Medicine; Visit Provider Internal Medicine Pulmonary Disease | DX: R59.0 Localized enlarged lymph nodes (principal); J41.0 Simple chronic bronchitis; R50.9 Fever, unspecified; I48.91 Unspecified atrial fibrillation; M05.79 Rheumatoid arthritis with rheumatoid factor of multiple sites without organ or systems involvement; I50.22 Chronic systolic (congestive) heart failure; A44.9 Bartonellosis, unspecified; R21 Rash and other nonspecific skin eruption; W54.8XXA Other contact with dog, initial encounter; Z71.6 Tobacco abuse counseling; R91.8 Other nonspecific abnormal finding of lung field; Z87.891 Personal history of nicotine dependence | CPT/HCPCS: 99214 ==

== ENCOUNTER 2021-05-16 09:12 | Outpatient (CLI) | payer MEDICARE, MEDICAID, SELFPAY ==
--- NOTE | 2021-05-16 10:00 | US_ITS ---
WS: [id number] RIGHT UPPER QUADRANT ULTRASOUND HISTORY: R63.5 - Abnormal weight gain COMPARISON: None available. Liver: 13.9 cm in length. Liver is normal size. Mild coarsened echotexture throughout the liver. No b ile duct dilatation or mass. Portal vein is normal. Portal Vein: Normal hepatopetal flow with monophasic waveform. Gallbladder: Normally distended gallbladder with no stones or wall thickening. CBD: 0.3 cm Pancreas: Head and tail are poorly visualized due to body habitus and bowel gas. The body is normal. Right kidney: 10.4 cm in length. Normal size and echogenicity. No hydronephrosis or mass. Aorta and IVC: Unremarkable abdominal aorta and IVC. No ascites. US/US liver [id number] IMPRESSION: 1. Normal gallbladder. No cholelithiasis. 2. Mild hepatic steatosis.
== END 2021-05-16 09:13 | disposition home or self-care (01) ==
LOC: RAD 09:15
PROVIDERS: PCP Family Medicine; Visit Provider Nurse Practitioner Family
DX: R63.5 Abnormal weight gain (principal); R18.8 Other ascites; K76.0 Fatty (change of) liver, not elsewhere classified
CPT/HCPCS: 76705

== ENCOUNTER → 2021-05-24 00:01 | Outpatient (BNVA) | payer MEDICARE, MEDICAID, SELFPAY | PROVIDERS: PCP Family Medicine; Visit Provider Internal Medicine Pulmonary Disease | DX: J44.9 Chronic obstructive pulmonary disease, unspecified (principal) | CPT/HCPCS: 87635 ==

== ENCOUNTER 2021-05-31 12:27 | Outpatient (CLI) | payer MEDICARE, MEDICAID, SELFPAY ==
--- NOTE | 2021-05-31 13:06 | PFTS_ITS ---
Date of Study:05/31/21 Date of Dictation: MECHANICS: Forced vital capacity (FVC) is normal. Forced expiratory volume in one second (FEV1) is normal. FEV1/FVC is normal. FLOW VOLUME LOOP: Mild scooping specially at lower lung volumes. LUNG VOLUMES: Total lung capacity (TLC) is normal. Residual volume (RV) is increased. DIFFUSING CAPACITY FOR CARBON MONOXIDE: Mild reduced. INTERPRETATION: The prebronchodilator spirometry is normal. The flow-volume loops reveals mild scooping consistent with small airways disease. Lung volumes are consistent with air trapping. Gas exchange (DLCO) is mildly reduced. MTDD
== END 2021-05-31 12:28 | disposition home or self-care (01) ==
LOC: RT 12:27
PROVIDERS: PCP Family Medicine; Visit Provider Internal Medicine Pulmonary Disease
DX: J41.0 Simple chronic bronchitis (principal); J98.4 Other disorders of lung
CPT/HCPCS: 94010; 94618; 94726; 94729

== ENCOUNTER → 2021-06-06 15:11 | Outpatient (BNVA) | payer MEDICARE, MEDICAID, SELFPAY | PROVIDERS: PCP Family Medicine; Visit Provider Emergency Medicine | DX: I50.22 Chronic systolic (congestive) heart failure (principal); J41.0 Simple chronic bronchitis; R42 Dizziness and giddiness | CPT/HCPCS: 71046 ==

== ENCOUNTER 2021-06-06 17:49 | Emergency (ER) | payer MEDICARE, MEDICAID, SELFPAY ==
[2021-06-06 18:03] VITALS: BP 103/61; PULSE 103; RESP 14; O2SAT 96
--- NOTE | 2021-06-06 18:13 | CTR_ITS ---
PROCEDURE INFORMATION: Exam: CT Head Without Contrast Exam date and time: 06/06/2021 6:45 PM Age: 65 years old Clinical indication: Dizziness; Prior surgery; Surgery date: 6+ months; Surgery type: RT stapes repair TECHNIQUE: Imaging protocol: Computed tomography of the head without contrast. Radiation optimization: All CT scans at this facility use at least one of these dose optimization techniques: automated exposure control; mA and/or kV adjustment per patient size (includes targeted exams where dose is matched to clinical indication); or iterative reconstruction. COMPARISON: MR head wo/w con [id number] 08/17/2020 10:41 AM RADIATION DOSE METRICS: Total DLP (mGy-cm): 945.84 FINDINGS: Brain: Mild cortical volume loss. Mild hypodensities in supratentorial periventricular and subcortical white matter, consistent with microangiopathy. No intracranial hemorrhage. Cerebral ventricles: No ventriculomegaly. Paranasal sinuses: Visualized sinuses are unremarkable. No fluid levels. Mastoid air cells: Visualized mastoid air cells are well aerated. Vasculature: No hyperdense artery. Bones/joints: Unremarkable. No acute fracture. Soft tissues: Unremarkable. Other findings: Right stapes repair. CT/CT head wo con* [id number] IMPRESSION: No acute intracranial abnormality.
--- NOTE | 2021-06-06 18:13 | XR_ITS ---
WS: [id number] Exam: XR chest 1V portable [id number] Date/Time of Exam: 06/06/2021 6:41 PM Reason For Exam: dizziness Comparison 06/06/2021 at 3:28 PM. The lungs are fully expanded and clear. Normal cardiomediastinal silhouette. No pleural effusions. Marmolejo rgical clips in the left axilla. Anchoring screws in the bilateral humeral heads. Old left clavicle f racture. Remaining bony elements appear normal. XR/XR chest 1V portable [id number] IMPRESSION: 1. No acute cardiopulmonary finding. No change.
--- NOTE | 2021-06-06 18:14 | ECG_ITS ---
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 Measurements Intervals [place] Rate: 96 P: 59 TN: 178 QRS: 40 QRSD: 114 T: 75 QT: 379 QTc: 479 Interpretive Statements SINUS RHYTHM WITH OCCASIONAL VENTRICULAR PREMATURE COMPLEXES POSSIBLE LEFT VENTRICULAR HYPERTROPHY [VOLTAGE CRITERIA PLUS LAE OR QRS WIDENING] NONSPECIFIC T-WAVE ABNORMALITY Compared to ECG 07/08/2020 16:04:31 T-wave abnormality now present Electronically Signed On 06-06-2021 22:13:10 CDT by Paco Marcano M.D. [id number]
--- NOTE | 2021-06-06 18:17 | ED_ITS ---
HPI - Dizziness General: Chief Complaint: Dizziness Stated Complaint: dizziness Time Seen by Provider: 06/06/21 18:02 Source: patient and EMS Mode of arrival: EMS Limitations: no limitations History of Present Illness: HPI Narrative: 65-year-old male who states that he has multiple medical problems and has not really felt well in over a year. He states that over the last 2 to 3 days that has been having some dizziness. Not really room spinning he states that after he stands he gets lightheaded and and then it subsides. He saw his PCP today but states that he had not gotten any better he denies any headache denies any chest pain denies any shortness of breath. Associated symptoms: Denies chest pain, chills, nausea or vomiting Review of Systems Const: Denies: fever(s), chills, body aches or change in appetite Eyes: Denies: blurry vision or eye discomfort ENMT: Denies: throat pain or dental pain Card: Denies: chest pain Resp: Denies: dyspnea GI: Denies: abdominal pain, nausea, vomiting or diarrhea : Denies: dysuria Musc: Denies: neck pain or back pain Skin/Breast: Denies: rash Neuro: Reports: dizziness Psych: Denies: depression Sandro/Lymph: Denies: easy bruising All/Imm: Denies: urticaria PFSH ED PFSH: Medical History Atrial fibrillation BPH (benign prostatic hyperplasia) BPH loc w urin obs/LUTS Cervical arthritis CHF (congestive heart failure) Chronic radicular low back pain COPD (chronic obstructive pulmonary disease) DDD (degenerative disc disease) Encounter for long-term opiate analgesic use Erectile dysfunction Fatigue GERD (gastroesophageal reflux disease) H/O chronic active hepatitis Insomnia Rheumatoid arthritis Seropositive rheumatoid arthritis of multiple sites Trigger finger of left hand Surgical History H/O arthroscopic knee surgery left -2018 H/O hemorrhoidectomy H/O repair of rotator cuff Bilateral rt. 2010 left 2016 H/O submucous nasal surgery History of ear surgery History of facial surgery History of laminectomy Lumbar Status post colonoscopy (07/15/19) Repeat in 10 years Family History Father Hypertension Heart disease Diabetes Cancer colon cancer Mother Hypertension Stroke Sister Hypertension Liver disease Brother Hypertension Family/Other Heart disease [employer] Cancer PROSTATE-UNCLE Other Arthritis Denies family history of Anesthesia complication Bleeding disorder Social History Smoking and tobacco status: former smoker Quit status (tobacco): has quit using tobacco Year quit tobacco: September 2020 Former quit date comment: 1.5ppd x 52years; smoked cigarettes, pipes, cigars Second hand smoke exposure: No Alcohol intake: former Year of sobriety/quit date alcohol: 2016 Desire information about alcohol rehabilitation?: No Desire information about substance/drug rehabilitation?: No Lives independently: Yes Housing: House Marital status details: Number of children: 2 service: No Current occupational status: unemployed Current occupational exposures/hazards: No 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 Pets and animals: Yes Pets & animals: dog(s) History of recent travel: No Sexually active: Yes Current gender identity: Male Physical Exam Const: COMMON NORMALS: no acute distress, patient oriented x3 and healthy appearing HENMT: COMMON NORMALS: normocephalic and atraumatic HEAD & SCALP: normocephalic and atraumatic Eye: COMMON NORMALS: Equal, round and reactive pupils present and EOMs intact bilaterally PUPIL: Yes Equal, round and reactive pupils present Neck/C-Spine: COMMON NORMALS: full ROM and supple Chest: COMMONS NORMALS: normal inspection of the chest and normal palpation of entire chest wall Resp: COMMON NORMALS: normal respiratory effort, No retractions, No use of accessory muscles and clear to auscultation bilaterally AUSCULTATION: clear to auscultation bilaterally Cardio: COMMON NORMALS: regular rate, regular rhythm and No murmurs present (Cardio) RATE: regular rate RHYTHM: regular rhythm GI: COMMON NORMALS: Normal to inspection, nondistended, normoactive bowel sounds present, Soft to palpation, non-tender and no masses PALPATION: Yes Soft to palpation Extremity: COMMON NORMALS: normal to inspection and full ROM Neuro: COMMON NORMALS: patient oriented x3, moves all extremities and no focal motor deficits Psych: COMMON NORMALS: mental status grossly normal, Normal thought process present and cooperative THOUGHT PROCESS: Normal thought process present Skin: COMMON NORMALS: no rashes or lesions noted and no wounds GENERAL SKIN EXAM: no rashes or lesions noted Course Vital Signs: Vital signs: Vital Signs Pulse Rate 88 06/06/21 21:44 Respiratory Rate 18 06/06/21 21:44 Blood Pressure 97/69 06/06/21 21:44 Pulse Oximetry 96 06/06/21 21:44 MDM - Dizziness Medical Decision Making Patient presents here with dizziness he has been well-appearing here head CT blood works all normal he feels improved here he stable for discharge follow-up with PCP and return if worsening understands raised plan. Lab Data : 06/06/21 18:30 06/06/21 18:[address] 06/06/21 18:13 IMPRESSION: No acute intracranial abnormality. Laboratory Results WBC 11.4 10^3/uL (4.0-10.0) H 06/06/21 18:30 RBC 4.76 10^6/uL (4.1-5.3) 06/06/21 18:30 Hgb 13.4 g/dL (11.7-16.6) 06/06/21 18:30 Hct 40.8 % (42.0-52.0) L 06/06/21 18:30 MCV 85.7 fl (80-94) 06/06/21 18: MCH 28.2 pg (28.0-34.0) 06/06/21 18:30 MCHC 32.8 g/dL (30.0-36.0) 06/06/21 18:30 RDW 15.2 % (12.1-15.1) H 06/06/21 18:30 Plt Count 251 10^3/cmm (130-400) 06/06/21 18:30 MPV 10.3 fL (7.4-10.4) 06/06/21 18:30 Neut % (Auto) 76.4 % 06/06/21 18: Lymph % (Auto) 12.1 % 06/06/21 18: Woodward % (Auto) 10.0 % 06/06/21 18:30 Eos % (Auto) 0.5 % 06/06/21 18:30 Baso % (Auto) 0.3 % 06/06/21 18: Neut # (Auto) 8.69 10^3/uL (1.8-7.7) H 06/06/21 18:30 Lymph # (Auto) 1.4 10^3/uL (0.8-4.8) 06/06/21 18:30 Woodward # (Auto) 1.1 10^3/uL (0.2-0.9) H 06/06/21 18:30 Eos # (Auto) 0.1 10^3/uL (0.0-0.8) 06/06/21 18:30 Baso # (Auto) 0.0 10^3/uL (0.0-0.1) 06/06/21 18:30 Nucleated RBC % (auto) 0 % 06/06/21 18: Nucleated RBCs # 0.0 /100WBC 06/06/21 18: PT 16.00 SECONDS (12.1-14.9) H 06/06/21 19:08 INR 1.24 (0.8-1.2) H 06/06/21 19:08 Sodium 136 mmol/L (136-145) 06/06/21 18: Potassium 4.3 mmol/L (3.5-5.1) 06/06/21 18: Chloride 98 mmol/L (98-107) 06/06/21 18:30 Carbon Dioxide 23 mmol/L (22-29) 06/06/21 18:30 Anion Gap 19.3 (5-19) H 06/06/21 18:30 BUN 32 mg/dL (8-23) H 06/06/21 18:30 Creatinine 1.3 mg/dL (0.7-1.2) H 06/06/21 18:30 GFR Calculation 55.8 mL/min (90-130) L 06/06/21 18:30 Glucose 125 mg/dL (65-115) H 06/06/21 18:30 Calculated Osmolality 290 mOsm/kg (285-295) 06/06/21 18:30 Calcium 9.2 mg/dL (8.5-10.5) 06/06/21 18:30 Total Bilirubin 0.3 mg/dL (0.15-1.2) 06/06/21 18:30 AST 17 U/L (0-40) 06/06/21 18:30 ALT 16 U/L (0-41) 06/06/21 18:30 Alkaline Phosphatase 66 IU/L (40-130) 06/06/21 18:30 Troponin T Baseline 20 ng/L (0-15) H 06/06/21 18:30 Total Protein 7.9 g/dL (6.6-8.7) 06/06/21 18:30 Albumin 4.2 g/dL (3.5-5.2) 06/06/21 18:30 Globulin 3.7 g/dL (1.3-4.6) 06/06/21 18:30 EKG Data EKG 1: I personally reviewed and interpreted this EKG as follows: EKG interpretation date: 06/06/21 EKG interpretation time: 18:34 Interpretation: nsr hr [address] or t wave abnormalities qrs 114 qtc 432 Discharge Plan Discharge Patient Disposition: Home Clinical Impression: Dizziness Condition: Stable Prescriptions: New meclizine 25 mg tablet 25 mg PO TID PRN (Reason: dizziness) Qty: 20 0RF No Action calcium carbonate [Calcium 600] 600 mg calcium (1,500 mg) tablet 600 mg PO DAILY@07 0RF cholecalciferol (vitamin D3) 25 mcg (1,000 unit) capsule 25 mcg PO DAILY 0RF ipratropium-albuterol 0.5 mg-3 mg(2.5 mg base)/3 mL solution for nebulization 3 ml inhalation Q4H PRN (Reason: wheezing) Qty: 90 3RF Combivent Respimat 20-100 mcg/actuation mist 1 puff inhalation Q6H PRN (Reason: wheezing) Qty: 4 3RF Hold Instructions: Doctor's Order fluticasone propionate [Flonase Allergy Relief] 50 mcg/actuation spray,suspension 1 spray intranasal BID Qty: 50 2RF Rx Instructions: administer into each nostril folic acid 1 mg tablet 1 mg PO DAILY 0RF nystatin 100,000 unit/mL suspension 100,000 unit PO DAILY 0RF Rx Instructions: administer 1/2 of dose in each side of the mouth sertraline 25 mg tablet 25 mg PO DAILY 0RF thiamine HCl (vitamin B1) 100 mg tablet 100 mg PO DAILY 0RF polyethylene glycol 3350 [Miralax] 17 gram/dose powder 17 g PO DAILY PRN0RF esomeprazole magnesium [Nexium] 40 mg capsule,delayed release(DR/EC) 40 mg PO DAILY 0RF budesonide-formoterol [Symbicort] 160-4.5 mcg/actuation HFA aerosol inhaler 2 puff inhalation BID PRN0RF aspirin [Adult Low Dose Aspirin] 81 mg tablet,delayed release (DR/EC) 81 mg PO DAILY 0RF metoprolol succinate 25 mg tablet extended release 24 hr 25 mg PO DAILY 90 Days Qty: 90 2RF albuterol sulfate 90 mcg/actuation HFA aerosol inhaler See Rx Instructions .ROUTE .COMPLEX Qty: 18 2RF Dose Instruction: 1 TO 2 PUFFS INHALATION EVERY 6 HOURS NEEDED FOR SHORTNESS OF BREATH Rx Instructions: 1 TO 2 PUFFS INHALATION EVERY 6 HOURS NEEDED FOR SHORTNESS OF BREATH Eliquis 5 mg tablet See Rx Instructions .ROUTE .COMPLEX Qty: 60 2RF Dose Instruction: TAKE ONE TABLET BY MOUTH TWICE A DAY Rx Instructions: TAKE ONE TABLET BY MOUTH TWICE A DAY polysaccharide iron complex 150 mg iron capsule 150 mg PO BID 30 Days Qty: 60 5RF torsemide 20 mg tablet 20 mg PO DAILY 30 Days Qty: 30 2RF bupropion HCl 150 mg tablet sustained-release 12 hr 150 mg PO Q12H 30 Days Qty: 60 2RF Spiriva Respimat 2.5 mcg/actuation mist 2 puff inhalation DAILY Qty: 4 3RF atovaquone [Mepron] 750 mg/5 mL suspension 1,500 mg PO DAILY Qty: 210 2RF Rx Instructions: must administer with food, preferably a high-fat meal prednisone 10 mg tablet 10 mg PO DAILY Qty: 90 1RF Hold Instructions: Resume on 08/15/20. until you see rheumatology potassium chloride 20 mEq tablet,ER particles/crystals 20 meq PO DAILY@07 PRN0RF cyclobenzaprine 10 mg tablet 10 mg PO TID 30 Days Qty: 90 2RF tamsulosin 0.4 mg capsule 0.4 mg PO BID Qty: 60 12RF oxycodone 10 mg tablet 10 mg PO BID PRN (Reason: pain) 30 Days Qty: 60 0RF loratadine 10 mg tablet See Rx Instructions .ROUTE .COMPLEX Qty: 30 1RF Dose Instruction: TAKE ONE TABLET BY MOUTH DAILY 30 DAYS Rx Instructions: TAKE ONE TABLET BY MOUTH DAILY 30 DAYS Discharge Orders: Discharge ED (Routine); Ordered 06/06/21 Ordered By: Federico Avelar Referrals: Debbie Cardoso MD [Primary Care Provider] - 1-3 days Discharge Diet: Advance as tolerated Discharge Activity: Resume usual activity Patient Instructions: Lightheadedness (ED) Coding Level of Care Code ED Skimmer Reverberatory for Chg Fwd Exam Comprehensive
[2021-06-06 18:37] LABS: Basophils % 0.3 %; Eosinophils # 0.1 10^3/uL (0.0-0.8); Eosinophils % 0.5 %; Hematocrit 40.8 % (42.0-52.0); Hemoglobin 13.4 g/dL (11.7-16.6); Lymphocytes # 1.4 10^3/uL (0.8-4.8); Lymphocytes % 12.1 %; Mean Corpuscular HGB Conc 32.8 g/dL (30.0-36.0); Mean Corpuscular Hemoglobin 28.2 pg (28.0-34.0); Mean Corpuscular Volume 85.7 fl (80-94); Mean Platelet Volume 10.3 fL (7.4-10.4); Monocytes # 1.1 10^3/uL (0.2-0.9); Neutrophils # 8.69 10^3/uL (1.8-7.7); Neutrophils % 76.4 %; Nucleated Red Blood Cells % 0 %; Platelet Count 251 10^3/cmm (130-400); Red Blood Count 4.76 10^6/uL (4.1-5.3); Red Cell Distribution Width 15.2 % (12.1-15.1); White Blood Count 11.4 10^3/uL (4.0-10.0)
[2021-06-06 19:05] LABS: Troponin(5th) Baseline 20 ng/L (0-15)
[2021-06-06 19:06] LABS: Alanine Aminotransferase 16 U/L (0-41); Albumin Level 4.2 g/dL (3.5-5.2); Alkaline Phosphatase 66 IU/L (40-130); Anion Gap 19.3 (5-19); Aspartate Amino Transferase 17 U/L (0-40); Blood Urea Nitrogen 32 mg/dL (8-23); Calcium 9.2 mg/dL (8.5-10.5); Carbon Dioxide 23 mmol/L (22-29); Chloride 98 mmol/L (98-107); Globulin 3.7 g/dL (1.3-4.6); Glomerular Filtration Rate 55.8 mL/min (90-130); Glucose 125 mg/dL (65-115); Osmolality Calculated 290 mOsm/kg (285-295); Potassium 4.3 mmol/L (3.5-5.1); Sodium 136 mmol/L (136-145); Total Bilirubin 0.3 mg/dL (0.15-1.2); Total Protein 7.9 g/dL (6.6-8.7)
[2021-06-06 19:36] LABS: INR 1.24 (0.8-1.2)
[2021-06-06 19:42] VITALS: BP 105/75; PULSE 93; RESP 17; O2SAT 95
[2021-06-06] MEDS: meclizine 25 mg tablet 50 MG PO (19:48)
[2021-06-06 21:44] VITALS: BP 97/69; PULSE 88; RESP 18; O2SAT 96
== END 2021-06-06 21:48 | disposition home or self-care (01) ==
PROVIDERS: Emergency Provider Emergency Medicine; PCP Family Medicine
DX: R42 Dizziness and giddiness (principal); Z87.891 Personal history of nicotine dependence; Z79.01 Long term (current) use of anticoagulants; Z79.52 Long term (current) use of systemic steroids; Z79.891 Long term (current) use of opiate analgesic; I48.91 Unspecified atrial fibrillation; M05.9 Rheumatoid arthritis with rheumatoid factor, unspecified; Z98.1 Arthrodesis status; G89.29 Other chronic pain; I50.22 Chronic systolic (congestive) heart failure; J41.0 Simple chronic bronchitis
CPT/HCPCS: 70450; 71045; 71046; 80053; 84484; 85025; 85610; 93005; 96360; 99283; J8597

== ENCOUNTER → 2021-07-12 10:35 | Outpatient (BNVA) | payer MEDICARE, MEDICAID, SELFPAY | PROVIDERS: PCP Family Medicine; Visit Provider Internal Medicine Pulmonary Disease | DX: R06.02 Shortness of breath (principal); R59.0 Localized enlarged lymph nodes; J41.0 Simple chronic bronchitis; R50.9 Fever, unspecified; I48.91 Unspecified atrial fibrillation; M05.79 Rheumatoid arthritis with rheumatoid factor of multiple sites without organ or systems involvement; I50.22 Chronic systolic (congestive) heart failure; A44.9 Bartonellosis, unspecified; R21 Rash and other nonspecific skin eruption; Z71.6 Tobacco abuse counseling; Z87.891 Personal history of nicotine dependence; R91.8 Other nonspecific abnormal finding of lung field; K21.9 Gastro-esophageal reflux disease without esophagitis; B19.20 Unspecified viral hepatitis C without hepatic coma | CPT/HCPCS: 99214 ==

== ENCOUNTER 2021-08-14 20:00 | Outpatient (CLI) | payer MEDICARE, MEDICAID, SELFPAY | END 2021-08-14 20:01 | disposition home or self-care (01) | LOC: SLEEP 08-15 08:24 | PROVIDERS: PCP Family Medicine; Visit Provider Internal Medicine Pulmonary Disease | DX: G47.33 Obstructive sleep apnea (adult) (pediatric) (principal) | CPT/HCPCS: 95810 ==

== ENCOUNTER → 2021-08-15 08:31 | Outpatient (BNVA) | payer MEDICARE, MEDICAID, SELFPAY | PROVIDERS: PCP Family Medicine; Visit Provider Internal Medicine Cardiovascular Disease | DX: I11.0 Hypertensive heart disease with heart failure (principal); I50.22 Chronic systolic (congestive) heart failure; I48.0 Paroxysmal atrial fibrillation; Z79.01 Long term (current) use of anticoagulants; I49.3 Ventricular premature depolarization; M05.79 Rheumatoid arthritis with rheumatoid factor of multiple sites without organ or systems involvement; I26.99 Other pulmonary embolism without acute cor pulmonale; J41.0 Simple chronic bronchitis; Z87.891 Personal history of nicotine dependence | CPT/HCPCS: 99214 ==